=== PATIENT | male | born 1940 | race Caucasian/White ===

== ENCOUNTER 2016-08-25 08:09 | Emergency (ER) | payer MEDICARE, BC, OTHER ==
[2008-04-06 07:24] VITALS: BP 120/70
[~2016-08-25] VITALS: Ht 177.8 cm; Wt 72.7 kg
[~2016-08-25 08:09] MED LIST: ASPIRIN 81M81 MG/TA2 PO; ASTELIN NASAL S34 ML; ATORVASTATIN; CARAFATE 1GM1 G PO; CARAFATE1 GM PO; CEFTIN500 MG PO; CETAPHIL1 CRE TP; CIPRO 500MG TA500 MG PO; COLACE 100100 MG/CAP PO; FIORICET 325 MG1 TA1 PO; FLOMAX 0.40.4 MG/CAP PO; IMITREX NA20 MG/SPRA NS; IMITREX25 MG PO; IMITREX5 MG NS; KENALOG 60 ML60 M1 TP; LIPITOR20 MG PO; LORTAB 5/500 501 TAB PO; MEDROL 4MG DOSPA4 MG PO; NAPROXEN EC500 MG PO; NEXIUM 40MG40 MG PO; NEXIUM PO; NEXIUM10 MG/Pack PO; NEXIUM40 MG PO; NORCO 325 MG-51 TAB PO; PEPCID20 MG PO; PERCOCET 5/321 UDTAB PO; PERCOCET 500 MG1 TAB PO; PHENERGAN 25 TA25 MG PO; PHENERGAN25 MG RC; PHENERGAN50 MG/SUPP RC; POLYSPORIN 5001 OI1 TP; PREDNISONE10 MG PO; PREDNISONE20 MG PO; PRESERVISION1 SGL PO; PREVACID 30MG30 MG PO; PREVACID30 MG PO; PRIL40 PO; PROTOPIC0.1% TP; REGLAN 10MG10 MG/TAB PO; TEMOVATE CREAM15 GM TP; TRIAMCINOLONE A15 G3 TP; UP TO DATE; ZITHROMAX 250M250 MG PO; ZITHROMAX Z PA250 MG PO
[2016-08-25 08:11] VITALS: BP 137/71; TEMP 98.6
[2016-08-25 09:00] VITALS: PULSE 61
== END 2016-08-25 09:00 | disposition home or self-care (01) ==
LOC: COL.ER 08:09
DX: G43.909 Migraine, unspecified, not intractable, without status migrainosus (principal)
CPT/HCPCS: J0595; J2550

== ENCOUNTER 2016-09-01 05:16 | Emergency (ER) | payer MEDICARE, BC, OTHER ==
[2008-04-06 07:24] VITALS: BP 120/70
[~2016-09-01] VITALS: Ht 182.9 cm; Wt 56.8 kg
[2016-09-01 05:20] VITALS: BP 136/77; TEMP 97
[2016-09-01 05:30] VITALS: PULSE 80
== END 2016-09-01 05:32 | disposition home or self-care (01) ==
LOC: COL.ER 05:16
DX: G43.909 Migraine, unspecified, not intractable, without status migrainosus (principal)
CPT/HCPCS: J0595; J2550

== ENCOUNTER 2016-09-08 10:26 | Emergency (ER) | payer MEDICARE, BC, OTHER ==
[2008-04-06 07:24] VITALS: BP 120/70
[~2016-09-08] VITALS: Ht 177.8 cm; Wt 72.7 kg
[2016-09-08 10:28] VITALS: BP 158/74; TEMP 98.1
[2016-09-08 11:19] VITALS: PULSE 62
== END 2016-09-08 11:19 | disposition home or self-care (01) ==
LOC: COL.ER 10:26
DX: G43.909 Migraine, unspecified, not intractable, without status migrainosus (principal)
CPT/HCPCS: J0595; J2550

== ENCOUNTER 2016-09-17 17:39 | Emergency (ER) | payer MEDICARE, BC, OTHER ==
[2008-04-06 07:24] VITALS: BP 120/70
[~2016-09-17] VITALS: Ht 177.8 cm; Wt 72.7 kg
[2016-09-17 17:50] VITALS: BP 124/68; TEMP 98.5
[2016-09-17 19:26] VITALS: PULSE 63
== END 2016-09-17 19:28 | disposition home or self-care (01) ==
LOC: COL.ER 17:39
DX: G43.909 Migraine, unspecified, not intractable, without status migrainosus (principal)
CPT/HCPCS: J0595; J2550

== ENCOUNTER 2016-09-27 04:35 | Emergency (ER) | payer MEDICARE, BC, OTHER ==
[2008-04-06 07:24] VITALS: BP 120/70
[~2016-09-27] VITALS: Ht 177.8 cm; Wt 72.7 kg
[2016-09-27 04:40] VITALS: BP 155/76; TEMP 98
[2016-09-27] MEDS ORDERED: STADOL NASA25 MG/BOT NS (04:43)
[2016-09-27 05:18] VITALS: PULSE 76
== END 2016-09-27 05:15 | disposition home or self-care (01) ==
LOC: COL.ER 04:35
DX: G43.909 Migraine, unspecified, not intractable, without status migrainosus (principal)
CPT/HCPCS: J0595; J2550

== ENCOUNTER 2016-10-05 14:35 | Emergency (ER) | payer MEDICARE, BC, OTHER ==
[2008-04-06 07:24] VITALS: BP 120/70
[~2016-10-05] VITALS: Ht 177.8 cm; Wt 72.7 kg
[~2016-10-05 14:35] MED LIST changes: +STADOL NASA25 MG/BOT NS
[2016-10-05 14:37] VITALS: PULSE 66
[2016-10-05 15:22] VITALS: BP 127/86; TEMP 98.8
== END 2016-10-05 15:23 | disposition home or self-care (01) ==
LOC: COL.ER 14:35
DX: G43.909 Migraine, unspecified, not intractable, without status migrainosus (principal)
CPT/HCPCS: J0595; J2550

== ENCOUNTER 2016-10-22 05:17 | Emergency (ER) | payer MEDICARE, BC, OTHER ==
[2008-04-06 07:24] VITALS: BP 120/70
[~2016-10-22] VITALS: Ht 177.8 cm; Wt 72.7 kg
[2016-10-22 05:21] VITALS: TEMP 97.7
[2016-10-22 05:43] VITALS: BP 140/89; PULSE 67
== END 2016-10-22 05:58 | disposition home or self-care (01) ==
LOC: COL.ER 05:17
DX: R51 Headache (principal)
CPT/HCPCS: J0595; J2550

== ENCOUNTER 2016-11-02 13:11 | Emergency (ER) | payer MEDICARE, BC, OTHER ==
[2008-04-06 07:24] VITALS: BP 120/70
[~2016-11-02] VITALS: Ht 177.8 cm; Wt 72.7 kg
[2016-11-02 13:19] VITALS: BP 145/94; TEMP 98.1
[2016-11-02 14:17] VITALS: PULSE 64
== END 2016-11-02 14:18 | disposition home or self-care (01) ==
LOC: COL.ER 13:11
DX: G43.909 Migraine, unspecified, not intractable, without status migrainosus (principal)
CPT/HCPCS: J0595; J2550

== ENCOUNTER 2016-11-09 06:49 | Emergency (ER) | payer MEDICARE, BC, OTHER ==
[2008-04-06 07:24] VITALS: BP 120/70
[~2016-11-09] VITALS: Ht 177.8 cm; Wt 72.7 kg
[2016-11-09 07:57] VITALS: BP 122/91; PULSE 76; TEMP 97.9
== END 2016-11-09 07:48 | disposition home or self-care (01) ==
LOC: COL.ER 06:49
DX: G43.909 Migraine, unspecified, not intractable, without status migrainosus (principal)
CPT/HCPCS: J0595; J2550

== ENCOUNTER 2016-11-14 04:33 | Emergency (ER) | payer MEDICARE, BC, OTHER ==
[2008-04-06 07:24] VITALS: BP 120/70
[~2016-11-14] VITALS: Ht 177.8 cm; Wt 72.7 kg
[2016-11-14 04:37] VITALS: BP 145/75; TEMP 98.3
[2016-11-14] MEDS ORDERED: ULTRAM 50MG TAB50 MG PO (05:04)
[2016-11-14] MEDS ORDERED: PHENERGAN 25 TA25 MG PO (05:04)
[2016-11-14 05:22] VITALS: PULSE 74
== END 2016-11-14 05:23 | disposition home or self-care (01) ==
LOC: COL.ER 04:33
DX: R51 Headache (principal)
CPT/HCPCS: J0595; J2550

== ENCOUNTER 2016-11-23 17:37 | Emergency (ER) | payer MEDICARE, BC, OTHER ==
[2008-04-06 07:24] VITALS: BP 120/70
[~2016-11-23] VITALS: Ht 177.8 cm; Wt 72.7 kg
[~2016-11-23 17:37] MED LIST changes: +ULTRAM 50MG TAB50 MG PO
[2016-11-23 17:40] VITALS: TEMP 98.2
[2016-11-23 18:07] VITALS: BP 149/88; PULSE 82
== END 2016-11-23 18:15 | disposition home or self-care (01) ==
LOC: COL.ER 17:37
DX: G43.909 Migraine, unspecified, not intractable, without status migrainosus (principal)
CPT/HCPCS: J0595; J2550

== ENCOUNTER 2016-12-11 02:29 | Emergency (ER) | payer MEDICARE, BC, OTHER ==
[2008-04-06 07:24] VITALS: BP 120/70
[~2016-12-11] VITALS: Ht 177.8 cm; Wt 73.6 kg
[2016-12-11 02:33] VITALS: BP 155/85; PULSE 68; TEMP 98.1
[2016-12-11] MEDS ORDERED: IMITREX 5MGNAS NS (02:46)
== END 2016-12-11 03:14 | disposition home or self-care (01) ==
LOC: COL.ER 02:29
DX: R51 Headache (principal); G43.909 Migraine, unspecified, not intractable, without status migrainosus
CPT/HCPCS: J0595; J2550

== ENCOUNTER 2016-12-20 15:15 | Emergency (ER) | payer MEDICARE, BC, OTHER ==
[2008-04-06 07:24] VITALS: BP 120/70
[~2016-12-20] VITALS: Ht 177.8 cm; Wt 71.8 kg
[~2016-12-20 15:15] MED LIST changes: +IMITREX 5MGNAS NS
[2016-12-20 15:41] VITALS: BP 140/73; PULSE 73; TEMP 99.3
== END 2016-12-20 17:18 | disposition home or self-care (01) ==
LOC: COL.ER 15:15
DX: G43.909 Migraine, unspecified, not intractable, without status migrainosus (principal)
CPT/HCPCS: J0595; J2550

== ENCOUNTER 2016-12-28 16:17 | Emergency (ER) | payer MEDICARE, BC, OTHER ==
[2008-04-06 07:24] VITALS: BP 120/70
[~2016-12-28] VITALS: Ht 177.8 cm; Wt 72.7 kg
[2016-12-28 16:20] VITALS: BP 142/67; TEMP 98.8
[2016-12-28 17:23] VITALS: PULSE 70
== END 2016-12-28 17:23 | disposition home or self-care (01) ==
LOC: COL.ER 16:17
DX: G43.909 Migraine, unspecified, not intractable, without status migrainosus (principal)
CPT/HCPCS: J0595; J2550

== ENCOUNTER 2017-01-05 10:22 | Emergency (ER) | payer MEDICARE, BC, OTHER ==
[2008-04-06 07:24] VITALS: BP 120/70
[~2017-01-05] VITALS: Ht 177.8 cm; Wt 72.7 kg
[2017-01-05 10:41] VITALS: BP 144/71; PULSE 57; TEMP 98.1
== END 2017-01-05 11:20 | disposition home or self-care (01) ==
LOC: COL.ER 10:22
DX: G43.909 Migraine, unspecified, not intractable, without status migrainosus (principal)
CPT/HCPCS: J0595; J2550

== ENCOUNTER 2017-01-07 12:09 | Emergency (ER) | payer MEDICARE, BC, OTHER ==
[2008-04-06 07:24] VITALS: BP 120/70
[~2017-01-07] VITALS: Ht 177.8 cm; Wt 72.7 kg
[2017-01-07 12:19] VITALS: BP 134/77; PULSE 68; TEMP 98.7
== END 2017-01-07 15:01 | disposition home or self-care (01) ==
LOC: COL.ER 12:09
DX: S61.212A Laceration without foreign body of right middle finger without damage to nail, initial encounter (principal); W45.8XXA Other foreign body or object entering through skin, initial encounter

== ENCOUNTER 2017-01-13 12:08 | Emergency (ER) | payer MEDICARE, BC, OTHER ==
[2008-04-06 07:24] VITALS: BP 120/70
[~2017-01-13] VITALS: Ht 177.8 cm; Wt 72.7 kg
[2017-01-13 12:12] VITALS: BP 116/64; PULSE 73; TEMP 98.4
== END 2017-01-13 12:51 | disposition home or self-care (01) ==
LOC: COL.ER 12:08
DX: G43.909 Migraine, unspecified, not intractable, without status migrainosus (principal); I10 Essential (primary) hypertension; K21.9 Gastro-esophageal reflux disease without esophagitis; M19.90 Unspecified osteoarthritis, unspecified site; Z87.891 Personal history of nicotine dependence; Z85.9 Personal history of malignant neoplasm, unspecified; Z90.49 Acquired absence of other specified parts of digestive tract; Z95.9 Presence of cardiac and vascular implant and graft, unspecified; Z98.890 Other specified postprocedural states
CPT/HCPCS: J0595; J2550

== ENCOUNTER 2017-01-18 17:11 | Emergency (ER) | payer MEDICARE, BC, OTHER ==
[2008-04-06 07:24] VITALS: BP 120/70
[~2017-01-18] VITALS: Ht 177.8 cm; Wt 72.7 kg
[2017-01-18 18:30] VITALS: BP 152/82; PULSE 57; TEMP 97.8
== END 2017-01-18 18:30 | disposition home or self-care (01) ==
LOC: COL.ER 17:11
DX: G43.909 Migraine, unspecified, not intractable, without status migrainosus (principal)
CPT/HCPCS: J0595; J2550

== ENCOUNTER 2017-01-26 10:34 | Emergency (ER) | payer MEDICARE, BC, OTHER ==
[2008-04-06 07:24] VITALS: BP 120/70
[~2017-01-26] VITALS: Ht 177.8 cm; Wt 72.7 kg
[2017-01-26 10:40] VITALS: BP 148/74; TEMP 98.2
[2017-01-26] MEDS ORDERED: IMITREX 6M6 MG/0.5 M SQ (10:42)
[2017-01-26 12:00] VITALS: PULSE 74
== END 2017-01-26 12:00 | disposition home or self-care (01) ==
LOC: COL.ER 10:34
DX: G43.909 Migraine, unspecified, not intractable, without status migrainosus (principal); J31.0 Chronic rhinitis
CPT/HCPCS: J0595; J2550

== ENCOUNTER 2017-02-05 17:08 | Emergency (ER) | payer MEDICARE, BC, OTHER ==
[2008-04-06 07:24] VITALS: BP 120/70
[~2017-02-05] VITALS: Ht 177.8 cm; Wt 72.7 kg
[~2017-02-05 17:08] MED LIST changes: +IMITREX 6M6 MG/0.5 M SQ
[2017-02-05 17:17] VITALS: BP 160/86; TEMP 98.1
[2017-02-05 18:25] VITALS: PULSE 75
== END 2017-02-05 18:26 | disposition home or self-care (01) ==
LOC: COL.ER 17:08
DX: G43.909 Migraine, unspecified, not intractable, without status migrainosus (principal); K21.9 Gastro-esophageal reflux disease without esophagitis; Z87.891 Personal history of nicotine dependence
CPT/HCPCS: J0595; J2550

== ENCOUNTER 2017-02-13 08:44 | Emergency (ER) | payer MEDICARE, BC, OTHER ==
[2008-04-06 07:24] VITALS: BP 120/70
[~2017-02-13] VITALS: Ht 177.8 cm; Wt 72.7 kg
[2017-02-13 08:46] VITALS: BP 143/64; TEMP 98.2
[2017-02-13 09:47] VITALS: PULSE 74
== END 2017-02-13 09:47 | disposition home or self-care (01) ==
LOC: COL.ER 08:44
DX: G43.909 Migraine, unspecified, not intractable, without status migrainosus (principal); I10 Essential (primary) hypertension; K21.9 Gastro-esophageal reflux disease without esophagitis; K75.9 Inflammatory liver disease, unspecified; M19.90 Unspecified osteoarthritis, unspecified site; G89.29 Other chronic pain; M25.511 Pain in right shoulder; Z87.442 Personal history of urinary calculi; Z96.0 Presence of urogenital implants; Z90.49 Acquired absence of other specified parts of digestive tract; Z98.890 Other specified postprocedural states
CPT/HCPCS: J0595; J2550

== ENCOUNTER 2017-02-21 12:15 | Emergency (ER) | payer MEDICARE, BC, OTHER ==
[2008-04-06 07:24] VITALS: BP 120/70
[~2017-02-21] VITALS: Ht 177.8 cm; Wt 72.7 kg
[2017-02-21 12:16] VITALS: BP 151/77; TEMP 98.5
[2017-02-21 13:02] VITALS: PULSE 71
== END 2017-02-21 13:04 | disposition home or self-care (01) ==
LOC: COL.ER 12:15
DX: G43.909 Migraine, unspecified, not intractable, without status migrainosus (principal)
CPT/HCPCS: J0595; J2550

== ENCOUNTER 2017-03-01 14:55 | Emergency (ER) | payer MEDICARE, BC, OTHER ==
[2008-04-06 07:24] VITALS: BP 120/70
[~2017-03-01] VITALS: Ht 177.8 cm; Wt 72.7 kg
[2017-03-01 15:02] VITALS: BP 147/68; TEMP 98.3
[2017-03-01 16:45] VITALS: PULSE 62
== END 2017-03-01 16:46 | disposition home or self-care (01) ==
LOC: COL.ER 14:55
DX: G43.909 Migraine, unspecified, not intractable, without status migrainosus (principal); I10 Essential (primary) hypertension; K21.9 Gastro-esophageal reflux disease without esophagitis; F17.200 Nicotine dependence, unspecified, uncomplicated; Z90.49 Acquired absence of other specified parts of digestive tract; Z98.890 Other specified postprocedural states; Z87.442 Personal history of urinary calculi
CPT/HCPCS: J0595; J2550

== ENCOUNTER 2017-03-07 03:49 | Emergency (ER) | payer MEDICARE, BC, OTHER ==
[2008-04-06 07:24] VITALS: BP 120/70
[~2017-03-07] VITALS: Ht 177.8 cm; Wt 72.3 kg
[2017-03-07 03:53] VITALS: BP 146/72; TEMP 98
[2017-03-07 04:36] VITALS: PULSE 78
== END 2017-03-07 04:37 | disposition home or self-care (01) ==
LOC: COL.ER 03:49
DX: G43.909 Migraine, unspecified, not intractable, without status migrainosus (principal)
CPT/HCPCS: J0595; J2550

== ENCOUNTER 2017-03-13 03:19 | Emergency (ER) | payer MEDICARE, BC, OTHER ==
[2008-04-06 07:24] VITALS: BP 120/70
[~2017-03-13] VITALS: Ht 177.8 cm; Wt 71.8 kg
[2017-03-13 03:21] VITALS: BP 144/81; TEMP 98.1
[2017-03-13 03:58] VITALS: PULSE 71
== END 2017-03-13 03:58 | disposition home or self-care (01) ==
LOC: COL.ER 03:19
DX: G43.909 Migraine, unspecified, not intractable, without status migrainosus (principal)
CPT/HCPCS: J0595; J2550

== ENCOUNTER 2017-03-21 17:16 | Emergency (ER) | payer MEDICARE, BC, OTHER ==
[2008-04-06 07:24] VITALS: BP 120/70
[~2017-03-21] VITALS: Ht 177.8 cm; Wt 72.7 kg
[2017-03-21 17:19] VITALS: BP 140/74; TEMP 98.7
[2017-03-21 18:27] VITALS: PULSE 71
== END 2017-03-21 18:28 | disposition home or self-care (01) ==
LOC: COL.ER 17:16
DX: G43.909 Migraine, unspecified, not intractable, without status migrainosus (principal); Z87.442 Personal history of urinary calculi; Z95.9 Presence of cardiac and vascular implant and graft, unspecified; Z90.49 Acquired absence of other specified parts of digestive tract; Z98.49 Cataract extraction status, unspecified eye; Z98.890 Other specified postprocedural states
CPT/HCPCS: J0595; J2550

== ENCOUNTER 2017-03-26 13:56 | Emergency (ER) | payer MEDICARE, BC, OTHER ==
[2008-04-06 07:24] VITALS: BP 120/70
[~2017-03-26] VITALS: Ht 177.8 cm; Wt 72.7 kg
[2017-03-26 14:00] VITALS: BP 138/71; TEMP 98.8
[2017-03-26 15:50] VITALS: PULSE 76
== END 2017-03-26 15:55 | disposition home or self-care (01) ==
LOC: COL.ER 13:56
DX: G43.909 Migraine, unspecified, not intractable, without status migrainosus (principal); K21.9 Gastro-esophageal reflux disease without esophagitis
CPT/HCPCS: J0595; J2550

== ENCOUNTER 2017-04-02 09:56 | Emergency (ER) | payer MEDICARE, BC, OTHER ==
[2008-04-06 07:24] VITALS: BP 120/70
[~2017-04-02] VITALS: Ht 177.8 cm; Wt 71.8 kg
[2017-04-02 09:59] VITALS: BP 144/68; TEMP 97.3
[2017-04-02 10:46] VITALS: PULSE 54
== END 2017-04-02 10:47 | disposition home or self-care (01) ==
LOC: COL.ER 09:56
DX: G43.909 Migraine, unspecified, not intractable, without status migrainosus (principal)
CPT/HCPCS: J0595; J2550

== ENCOUNTER 2017-04-15 04:23 | Emergency (ER) | payer MEDICARE, BC, OTHER ==
[2008-04-06 07:24] VITALS: BP 120/70
[2017-04-15 04:25] VITALS: BP 142/67; TEMP 97.6
[2017-04-15] MEDS ORDERED: ERGOCALCIFER50000 IU PO (04:43)
[2017-04-15 05:04] VITALS: PULSE 65
== END 2017-04-15 05:04 | disposition home or self-care (01) ==
LOC: COL.ER 04:23
DX: G43.909 Migraine, unspecified, not intractable, without status migrainosus (principal); Z90.49 Acquired absence of other specified parts of digestive tract; Z98.890 Other specified postprocedural states
CPT/HCPCS: J0595; J2550

== ENCOUNTER 2017-04-20 11:27 | Emergency (ER) | payer MEDICARE, BC, OTHER ==
[2008-04-06 07:24] VITALS: BP 120/70
[~2017-04-20] VITALS: Ht 177.8 cm; Wt 70.5 kg
[~2017-04-20 11:27] MED LIST changes: +ERGOCALCIFER50000 IU PO
[2017-04-20 11:30] VITALS: BP 184/82; TEMP 97.8
[2017-04-20 12:43] VITALS: PULSE 65
== END 2017-04-20 12:44 | disposition home or self-care (01) ==
LOC: COL.ER 11:27
DX: G43.909 Migraine, unspecified, not intractable, without status migrainosus (principal); Z87.891 Personal history of nicotine dependence
CPT/HCPCS: J0595; J2550

== ENCOUNTER 2017-04-27 04:48 | Emergency (ER) | payer MEDICARE, BC, OTHER ==
[2008-04-06 07:24] VITALS: BP 120/70
[~2017-04-27] VITALS: Ht 177.8 cm; Wt 71.8 kg
[2017-04-27 04:50] VITALS: BP 154/81; PULSE 71; TEMP 97.2
== END 2017-04-27 05:20 | disposition home or self-care (01) ==
LOC: COL.ER 04:48
DX: G43.909 Migraine, unspecified, not intractable, without status migrainosus (principal)
CPT/HCPCS: J0595; J2550

== ENCOUNTER 2017-05-08 19:35 | Emergency (ER) | payer MEDICARE, BC, OTHER ==
[2008-04-06 07:24] VITALS: BP 120/70
[~2017-05-08] VITALS: Ht 177.8 cm; Wt 69.1 kg
[2017-05-08 19:38] VITALS: BP 139/70; TEMP 97.9
[2017-05-08 20:11] VITALS: PULSE 57
== END 2017-05-08 20:11 | disposition home or self-care (01) ==
LOC: COL.ER 19:35
DX: G43.909 Migraine, unspecified, not intractable, without status migrainosus (principal)
CPT/HCPCS: J0595; J2550

== ENCOUNTER 2017-05-17 19:20 | Emergency (ER) | payer MEDICARE, BC, OTHER ==
[2008-04-06 07:24] VITALS: BP 120/70
[~2017-05-17] VITALS: Ht 177.8 cm; Wt 70.5 kg
[2017-05-17 19:26] VITALS: BP 176/80; PULSE 62; TEMP 98
== END 2017-05-17 20:11 | disposition home or self-care (01) ==
LOC: COL.ER 19:20
DX: G43.909 Migraine, unspecified, not intractable, without status migrainosus (principal)
CPT/HCPCS: J0595; J2550

== ENCOUNTER 2017-06-01 11:02 | Emergency (ER) | payer MEDICARE, BC, OTHER ==
[2008-04-06 07:24] VITALS: BP 120/70
[~2017-06-01] VITALS: Ht 177.8 cm; Wt 70.5 kg
[2017-06-01 11:09] VITALS: BP 163/67; TEMP 99.4
[2017-06-01 12:06] VITALS: PULSE 68
== END 2017-06-01 12:20 | disposition home or self-care (01) ==
LOC: COL.ER 11:02
DX: G43.909 Migraine, unspecified, not intractable, without status migrainosus (principal)
CPT/HCPCS: J0595; J2550

== ENCOUNTER 2017-06-10 10:44 | Emergency (ER) | payer MEDICARE, BC, OTHER ==
[2008-04-06 07:24] VITALS: BP 120/70
[~2017-06-10] VITALS: Ht 177.8 cm; Wt 70.5 kg
[2017-06-10 10:49] VITALS: BP 163/70; TEMP 98.3
[2017-06-10 11:45] VITALS: PULSE 58
== END 2017-06-10 11:48 | disposition home or self-care (01) ==
LOC: COL.ER 10:44
DX: G43.909 Migraine, unspecified, not intractable, without status migrainosus (principal)
CPT/HCPCS: J0595; J2550

== ENCOUNTER 2017-06-17 06:29 | Emergency (ER) | payer MEDICARE, BC, OTHER ==
[2008-04-06 07:24] VITALS: BP 120/70
[~2017-06-17] VITALS: Ht 177.8 cm; Wt 70.5 kg
[2017-06-17 06:51] VITALS: BP 142/65; PULSE 70; TEMP 97
== END 2017-06-17 08:04 | disposition home or self-care (01) ==
LOC: COL.ER 06:29
DX: G43.909 Migraine, unspecified, not intractable, without status migrainosus (principal)
CPT/HCPCS: J0595; J2550

== ENCOUNTER 2017-07-04 10:52 | Emergency (ER) | payer MEDICARE, BC, OTHER ==
[2008-04-06 07:24] VITALS: BP 120/70
[~2017-07-04] VITALS: Ht 177.8 cm; Wt 68.2 kg
[2017-07-04 11:03] VITALS: PULSE 65; TEMP 98.4
[2017-07-04 12:13] VITALS: BP 141/71
== END 2017-07-04 12:14 | disposition home or self-care (01) ==
LOC: COL.ER 10:52
DX: G43.909 Migraine, unspecified, not intractable, without status migrainosus (principal)
CPT/HCPCS: J0595; J2550

== ENCOUNTER 2017-07-12 14:30 | Emergency (ER) | payer MEDICARE, BC, OTHER ==
[2008-04-06 07:24] VITALS: BP 120/70
[~2017-07-12] VITALS: Ht 177.8 cm; Wt 68.2 kg
[2017-07-12 14:32] VITALS: BP 140/82; PULSE 69; TEMP 98
== END 2017-07-12 15:14 | disposition home or self-care (01) ==
LOC: COL.ER 14:30
DX: G43.909 Migraine, unspecified, not intractable, without status migrainosus (principal)
CPT/HCPCS: J0595; J2550

== ENCOUNTER 2017-07-21 13:04 | Emergency (ER) | payer MEDICARE, BC, OTHER ==
[2008-04-06 07:24] VITALS: BP 120/70
[~2017-07-21] VITALS: Ht 177.8 cm; Wt 70.5 kg
[2017-07-21 13:09] VITALS: BP 169/77; TEMP 100
[2017-07-21 14:16] VITALS: PULSE 64
== END 2017-07-21 14:16 | disposition home or self-care (01) ==
LOC: COL.ER 13:04
DX: G43.909 Migraine, unspecified, not intractable, without status migrainosus (principal); Z90.49 Acquired absence of other specified parts of digestive tract
CPT/HCPCS: J0595; J2550

== ENCOUNTER 2017-07-28 13:47 | Emergency (ER) | payer MEDICARE, BC, OTHER ==
[2008-04-06 07:24] VITALS: BP 120/70
[~2017-07-28] VITALS: Ht 177.8 cm; Wt 70.5 kg
[2017-07-28 13:53] VITALS: BP 149/72; TEMP 98.8
[2017-07-28 15:05] VITALS: PULSE 68
== END 2017-07-28 15:06 | disposition home or self-care (01) ==
LOC: COL.ER 13:47
DX: G43.909 Migraine, unspecified, not intractable, without status migrainosus (principal); K21.9 Gastro-esophageal reflux disease without esophagitis
CPT/HCPCS: J0595; J2550

== ENCOUNTER 2017-08-23 12:15 | Emergency (ER) | payer MEDICARE, BC, OTHER ==
[2008-04-06 07:24] VITALS: BP 120/70
[~2017-08-23] VITALS: Ht 177.8 cm; Wt 66.4 kg
[2017-08-23 12:18] VITALS: BP 169/89; TEMP 98.2
[2017-08-23 13:24] VITALS: PULSE 68
== END 2017-08-23 13:24 | disposition home or self-care (01) ==
LOC: COL.ER 12:15
DX: G43.909 Migraine, unspecified, not intractable, without status migrainosus (principal); K21.9 Gastro-esophageal reflux disease without esophagitis; F17.210 Nicotine dependence, cigarettes, uncomplicated; Z87.442 Personal history of urinary calculi; Z96.0 Presence of urogenital implants; Z98.890 Other specified postprocedural states
CPT/HCPCS: J0595; J2550

== ENCOUNTER 2017-09-13 13:55 | Emergency (ER) | payer MEDICARE, BC, OTHER ==
[2008-04-06 07:24] VITALS: BP 120/70
[~2017-09-13] VITALS: Ht 177.8 cm; Wt 70.5 kg
[2017-09-13 14:08] VITALS: BP 143/79; TEMP 98
[2017-09-13 14:46] VITALS: PULSE 75
== END 2017-09-13 14:58 | disposition home or self-care (01) ==
LOC: COL.ER 13:55
DX: R51 Headache (principal)
CPT/HCPCS: J0595; J2550

== ENCOUNTER 2017-09-27 07:55 | Emergency (ER) | payer MEDICARE, BC ==
[2008-04-06 07:24] VITALS: BP 120/70
[~2017-09-27] VITALS: Ht 177.8 cm; Wt 70.5 kg
[2017-09-27 07:58] VITALS: BP 173/89; PULSE 63; TEMP 97.8
== END 2017-09-27 09:06 | disposition home or self-care (01) ==
LOC: COL.ER 07:55
DX: G43.909 Migraine, unspecified, not intractable, without status migrainosus (principal); K21.9 Gastro-esophageal reflux disease without esophagitis; Z87.442 Personal history of urinary calculi; Z87.891 Personal history of nicotine dependence
CPT/HCPCS: J0595; J2550

== ENCOUNTER 2017-10-09 04:57 | Emergency (ER) | payer MEDICARE, BC ==
[2008-04-06 07:24] VITALS: BP 120/70
[~2017-10-09] VITALS: Ht 177.8 cm; Wt 72.7 kg
[2017-10-09 05:11] VITALS: TEMP 97.3
[2017-10-09 06:21] VITALS: BP 154/63; PULSE 63
== END 2017-10-09 06:15 | disposition home or self-care (01) ==
LOC: COL.ER 04:57
DX: G43.909 Migraine, unspecified, not intractable, without status migrainosus (principal)
CPT/HCPCS: J0595; J2550

== ENCOUNTER 2017-10-19 05:04 | Emergency (ER) | payer MEDICARE, BC ==
[2008-04-06 07:24] VITALS: BP 120/70
[~2017-10-19] VITALS: Ht 177.8 cm; Wt 72.7 kg
[2017-10-19 05:06] VITALS: BP 140/85; TEMP 98
[2017-10-19 05:47] VITALS: PULSE 68
== END 2017-10-19 05:45 | disposition home or self-care (01) ==
LOC: COL.ER 05:04
DX: G43.909 Migraine, unspecified, not intractable, without status migrainosus (principal); Z90.49 Acquired absence of other specified parts of digestive tract
CPT/HCPCS: J0595; J2550

== ENCOUNTER 2017-10-26 16:10 | Emergency (ER) | payer MEDICARE, BC ==
[2008-04-06 07:24] VITALS: BP 120/70
[~2017-10-26] VITALS: Ht 177.8 cm; Wt 70.5 kg
[2017-10-26 16:12] VITALS: BP 173/78; PULSE 62; TEMP 98.1
== END 2017-10-26 16:43 | disposition home or self-care (01) ==
LOC: COL.ER 16:10
DX: G43.909 Migraine, unspecified, not intractable, without status migrainosus (principal)
CPT/HCPCS: J0595; J2550

== ENCOUNTER 2017-11-03 09:54 | Emergency (ER) | payer MEDICARE, BC ==
[2008-04-06 07:24] VITALS: BP 120/70
[~2017-11-03] VITALS: Ht 170.2 cm; Wt 68.2 kg
[2017-11-03 09:57] VITALS: BP 154/83; PULSE 62; TEMP 98.2
== END 2017-11-03 10:34 | disposition home or self-care (01) ==
LOC: COL.ER 09:54
DX: G43.909 Migraine, unspecified, not intractable, without status migrainosus (principal); I10 Essential (primary) hypertension; K21.9 Gastro-esophageal reflux disease without esophagitis; Z87.442 Personal history of urinary calculi
CPT/HCPCS: J0595; J2550

== ENCOUNTER 2017-11-10 10:22 | Emergency (ER) | payer MEDICARE, BC ==
[2008-04-06 07:24] VITALS: BP 120/70
[~2017-11-10] VITALS: Ht 177.8 cm; Wt 70.5 kg
[2017-11-10 10:37] VITALS: BP 165/77; PULSE 61; TEMP 98.2
== END 2017-11-10 13:04 | disposition home or self-care (01) ==
LOC: COL.ER 10:22
DX: G43.909 Migraine, unspecified, not intractable, without status migrainosus (principal)
CPT/HCPCS: J0595; J2550

== ENCOUNTER 2017-11-20 16:27 | Emergency (ER) | payer MEDICARE, BC ==
[2008-04-06 07:24] VITALS: BP 120/70
[~2017-11-20] VITALS: Ht 177.8 cm; Wt 70.5 kg
[2017-11-20 16:40] VITALS: BP 134/70; TEMP 98.9
[2017-11-20 17:10] VITALS: PULSE 67
== END 2017-11-20 17:10 | disposition home or self-care (01) ==
LOC: COL.ER 16:27
DX: G43.909 Migraine, unspecified, not intractable, without status migrainosus (principal); Z90.49 Acquired absence of other specified parts of digestive tract
CPT/HCPCS: J0595; J2550

== ENCOUNTER 2017-12-07 14:03 | Emergency (ER) | payer MEDICARE, BC ==
[2008-04-06 07:24] VITALS: BP 120/70
[~2017-12-07] VITALS: Ht 177.8 cm; Wt 70.5 kg
[2017-12-07 14:11] VITALS: BP 135/65; TEMP 97.9
[2017-12-07 14:41] VITALS: PULSE 65
== END 2017-12-07 14:42 | disposition home or self-care (01) ==
LOC: COL.ER 14:03
DX: G43.909 Migraine, unspecified, not intractable, without status migrainosus (principal); Z90.89 Acquired absence of other organs; Z98.890 Other specified postprocedural states
CPT/HCPCS: J0595; J2550

== ENCOUNTER 2017-12-21 09:19 | Emergency (ER) | payer MEDICARE, BC ==
[2008-04-06 07:24] VITALS: BP 120/70
[~2017-12-21] VITALS: Ht 177.8 cm; Wt 70.5 kg
[2017-12-21 09:50] VITALS: TEMP 97.3
[2017-12-21 10:25] VITALS: BP 143/76; PULSE 54
== END 2017-12-21 10:13 | disposition home or self-care (01) ==
LOC: COL.ER 09:19
DX: G43.909 Migraine, unspecified, not intractable, without status migrainosus (principal)
CPT/HCPCS: J0595; J2550

== ENCOUNTER 2018-01-02 13:30 | Emergency (ER) | payer MEDICARE, BC ==
[2008-04-06 07:24] VITALS: BP 120/70
[~2018-01-02] VITALS: Ht 177.8 cm; Wt 70.5 kg
[2018-01-02 13:32] VITALS: BP 169/75; PULSE 61; TEMP 97.8
== END 2018-01-02 14:58 | disposition home or self-care (01) ==
LOC: COL.ER 13:30
DX: G43.909 Migraine, unspecified, not intractable, without status migrainosus (principal)
CPT/HCPCS: J0595; J2550

== ENCOUNTER 2018-01-11 13:43 | Emergency (ER) | payer MEDICARE, BC ==
[2008-04-06 07:24] VITALS: BP 120/70
[~2018-01-11] VITALS: Ht 177.8 cm; Wt 61.4 kg
[2018-01-11 13:45] VITALS: BP 146/75; TEMP 99
[2018-01-11 14:22] VITALS: PULSE 68
== END 2018-01-11 14:25 | disposition home or self-care (01) ==
LOC: COL.ER 13:43
DX: G43.909 Migraine, unspecified, not intractable, without status migrainosus (principal); Z87.442 Personal history of urinary calculi; Z87.891 Personal history of nicotine dependence; Z98.890 Other specified postprocedural states
CPT/HCPCS: J0595; J2550

== ENCOUNTER 2018-01-18 13:00 | Emergency (ER) | payer MEDICARE, BC ==
[2008-04-06 07:24] VITALS: BP 120/70
[~2018-01-18] VITALS: Ht 177.8 cm; Wt 65.9 kg
[2018-01-18 13:02] VITALS: BP 146/65; PULSE 86; TEMP 98.2
== END 2018-01-18 13:27 | disposition home or self-care (01) ==
LOC: COL.ER 13:00
DX: R51 Headache (principal); K21.9 Gastro-esophageal reflux disease without esophagitis; N40.0 Benign prostatic hyperplasia without lower urinary tract symptoms
CPT/HCPCS: J0595; J2550

== ENCOUNTER 2018-01-26 11:36 | Emergency (ER) | payer MEDICARE, BC ==
[2008-04-06 07:24] VITALS: BP 120/70
[~2018-01-26] VITALS: Ht 177.8 cm; Wt 65.9 kg
[2018-01-26 11:39] VITALS: BP 133/83; PULSE 70; TEMP 97.9
== END 2018-01-26 12:28 | disposition home or self-care (01) ==
LOC: COL.ER 11:36
DX: G43.909 Migraine, unspecified, not intractable, without status migrainosus (principal); I10 Essential (primary) hypertension; K21.9 Gastro-esophageal reflux disease without esophagitis; Z87.442 Personal history of urinary calculi; Z87.891 Personal history of nicotine dependence
CPT/HCPCS: J0595; J2550

== ENCOUNTER 2018-02-01 13:25 | Emergency (ER) | payer MEDICARE, BC ==
[2008-04-06 07:24] VITALS: BP 120/70
[~2018-02-01] VITALS: Ht 177.8 cm; Wt 65.9 kg
[2018-02-01 13:28] VITALS: BP 181/74; TEMP 97.8
[2018-02-01 14:06] VITALS: PULSE 60
== END 2018-02-01 14:06 | disposition home or self-care (01) ==
LOC: COL.ER 13:25
DX: G43.909 Migraine, unspecified, not intractable, without status migrainosus (principal); I10 Essential (primary) hypertension; Z87.891 Personal history of nicotine dependence
CPT/HCPCS: J0595; J2550

== ENCOUNTER 2018-02-05 16:00 | Emergency (ER) | payer MEDICARE, BC ==
[2008-04-06 07:24] VITALS: BP 120/70
[~2018-02-05] VITALS: Ht 177.8 cm; Wt 65.9 kg
[2018-02-05 16:04] VITALS: BP 137/76; PULSE 70; TEMP 97.5
== END 2018-02-05 16:40 | disposition home or self-care (01) ==
LOC: COL.ER 16:00
DX: G43.909 Migraine, unspecified, not intractable, without status migrainosus (principal)
CPT/HCPCS: J0595; J2550

== ENCOUNTER 2018-02-15 08:56 | Emergency (ER) | payer MEDICARE, BC ==
[2008-04-06 07:24] VITALS: BP 120/70
[~2018-02-15] VITALS: Ht 175.3 cm; Wt 65.9 kg
[2018-02-15 09:01] VITALS: BP 154/74; TEMP 98.3
[2018-02-15 09:55] VITALS: PULSE 66
== END 2018-02-15 09:56 | disposition home or self-care (01) ==
LOC: COL.ER 08:56
DX: G43.909 Migraine, unspecified, not intractable, without status migrainosus (principal)
CPT/HCPCS: J0595; J2550

== ENCOUNTER 2018-02-20 12:02 | Emergency (ER) | payer MEDICARE, BC ==
[2008-04-06 07:24] VITALS: BP 120/70
[~2018-02-20] VITALS: Ht 177.8 cm; Wt 65.9 kg
[2018-02-20 12:15] VITALS: BP 147/74; TEMP 97.7
[2018-02-20 12:46] VITALS: PULSE 58
== END 2018-02-20 12:47 | disposition home or self-care (01) ==
LOC: COL.ER 12:02
DX: G43.909 Migraine, unspecified, not intractable, without status migrainosus (principal)
CPT/HCPCS: J0595; J2550

== ENCOUNTER 2018-02-25 06:37 | Emergency (ER) | payer MEDICARE, BC ==
[2008-04-06 07:24] VITALS: BP 120/70
[~2018-02-25] VITALS: Ht 177.8 cm; Wt 65.9 kg
[2018-02-25 06:43] VITALS: BP 132/74; PULSE 72; TEMP 97.8
[2018-02-25] MEDS ORDERED: ZYRTEC 10MG10 MG PO (07:46)
[2018-02-25] MEDS ORDERED: FLONASEALLERGY NS (07:46)
== END 2018-02-25 07:59 | disposition home or self-care (01) ==
LOC: COL.ER 06:37
DX: G43.909 Migraine, unspecified, not intractable, without status migrainosus (principal); J30.9 Allergic rhinitis, unspecified; I10 Essential (primary) hypertension; Z90.49 Acquired absence of other specified parts of digestive tract; Z87.891 Personal history of nicotine dependence
CPT/HCPCS: J0595; J2550

== ENCOUNTER → 2018-03-06 | Emergency (ER) | payer MEDICARE, BC ==
[2008-04-06 07:24] VITALS: BP 120/70
[~2018-03-06] VITALS: Ht 177.8 cm; Wt 65.9 kg
[~2018-03-06] MED LIST changes: +FLONASEALLERGY NS; +ZYRTEC 10MG10 MG PO
[2018-03-06 13:55] VITALS: BP 171/74; PULSE 67; TEMP 97.8
== END ==
LOC: COL.ER 13:35
DX: G43.909 Migraine, unspecified, not intractable, without status migrainosus (principal); Z90.49 Acquired absence of other specified parts of digestive tract; Z98.890 Other specified postprocedural states; Z79.51 Long term (current) use of inhaled steroids
CPT/HCPCS: J0595; J2550

== ENCOUNTER 2018-03-16 10:45 | Emergency (ER) | payer MEDICARE, BC ==
[2008-04-06 07:24] VITALS: BP 120/70
[~2018-03-16] VITALS: Ht 177.8 cm; Wt 65.9 kg
[2018-03-16 10:55] VITALS: TEMP 98.2
[2018-03-16 11:48] VITALS: BP 156/91; PULSE 77
== END 2018-03-16 11:53 | disposition home or self-care (01) ==
LOC: COL.ER 10:45
DX: G43.909 Migraine, unspecified, not intractable, without status migrainosus (principal); K21.9 Gastro-esophageal reflux disease without esophagitis; Z98.890 Other specified postprocedural states; Z79.51 Long term (current) use of inhaled steroids
CPT/HCPCS: J0595; J2550

== ENCOUNTER 2018-03-23 10:12 | Emergency (ER) | payer MEDICARE, BC ==
[2008-04-06 07:24] VITALS: BP 120/70
[~2018-03-23] VITALS: Ht 177.8 cm; Wt 65.9 kg
[2018-03-23 10:17] VITALS: BP 150/72; TEMP 98.4
[2018-03-23 11:07] VITALS: PULSE 58
== END 2018-03-23 11:08 | disposition home or self-care (01) ==
LOC: COL.ER 10:12
DX: G43.909 Migraine, unspecified, not intractable, without status migrainosus (principal); K21.9 Gastro-esophageal reflux disease without esophagitis; N40.0 Benign prostatic hyperplasia without lower urinary tract symptoms; E78.5 Hyperlipidemia, unspecified; Z90.49 Acquired absence of other specified parts of digestive tract; Z98.890 Other specified postprocedural states; Z88.8 Allergy status to other drugs, medicaments and biological substances; Z87.442 Personal history of urinary calculi
CPT/HCPCS: J0595; J2550

== ENCOUNTER 2018-03-29 12:28 | Emergency (ER) | payer MEDICARE, BC ==
[2008-04-06 07:24] VITALS: BP 120/70
[~2018-03-29] VITALS: Ht 177.8 cm; Wt 62.4 kg
[2018-03-29 12:33] VITALS: BP 168/76; TEMP 98.1
[2018-03-29 13:31] VITALS: PULSE 64
== END 2018-03-29 13:31 | disposition home or self-care (01) ==
LOC: COL.ER 12:28
DX: G43.909 Migraine, unspecified, not intractable, without status migrainosus (principal); I10 Essential (primary) hypertension; Z98.890 Other specified postprocedural states; Z90.49 Acquired absence of other specified parts of digestive tract; Z79.51 Long term (current) use of inhaled steroids
CPT/HCPCS: J0595; J2550

== ENCOUNTER 2018-04-05 04:40 | Emergency (ER) | payer MEDICARE, BC ==
[2008-04-06 07:24] VITALS: BP 120/70
[~2018-04-05] VITALS: Ht 177.8 cm; Wt 65.9 kg
[2018-04-05 04:44] VITALS: BP 136/73; TEMP 98.7
[2018-04-05 05:14] VITALS: PULSE 75
== END 2018-04-05 05:15 | disposition home or self-care (01) ==
LOC: COL.ER 04:40
DX: G43.909 Migraine, unspecified, not intractable, without status migrainosus (principal)
CPT/HCPCS: J0595; J2550

== ENCOUNTER 2018-04-12 11:24 | Emergency (ER) | payer MEDICARE, BC ==
[2008-04-06 07:24] VITALS: BP 120/70
[~2018-04-12] VITALS: Ht 177.8 cm; Wt 65.9 kg
[2018-04-12 11:33] VITALS: BP 160/83; PULSE 65; TEMP 98.7
== END 2018-04-12 12:56 | disposition home or self-care (01) ==
LOC: COL.ER 11:24
DX: G43.909 Migraine, unspecified, not intractable, without status migrainosus (principal)
CPT/HCPCS: J0595; J2550

== ENCOUNTER 2018-04-23 08:16 | Emergency (ER) | payer MEDICARE, BC ==
[2008-04-06 07:24] VITALS: BP 120/70
[~2018-04-23] VITALS: Ht 177.8 cm; Wt 65.9 kg
[2018-04-23 08:26] VITALS: BP 153/77
[2018-04-23 10:11] VITALS: PULSE 53; TEMP 98.4
== END 2018-04-23 09:10 | disposition home or self-care (01) ==
LOC: COL.ER 08:16
DX: G43.909 Migraine, unspecified, not intractable, without status migrainosus (principal); I10 Essential (primary) hypertension; K21.9 Gastro-esophageal reflux disease without esophagitis; F17.210 Nicotine dependence, cigarettes, uncomplicated; Z98.890 Other specified postprocedural states; Z79.51 Long term (current) use of inhaled steroids
CPT/HCPCS: J0595; J2550

== ENCOUNTER 2018-05-01 17:11 | Emergency (ER) | payer MEDICARE, BC ==
[2008-04-06 07:24] VITALS: BP 120/70
[~2018-05-01] VITALS: Ht 172.7 cm; Wt 54.5 kg
[2018-05-01 17:28] VITALS: BP 176/88; TEMP 97.1
[2018-05-01 19:21] VITALS: PULSE 86
== END 2018-05-01 19:22 | disposition home or self-care (01) ==
LOC: COL.ER 17:11
DX: G43.909 Migraine, unspecified, not intractable, without status migrainosus (principal); K21.9 Gastro-esophageal reflux disease without esophagitis; Z87.442 Personal history of urinary calculi; Z87.891 Personal history of nicotine dependence; Z79.51 Long term (current) use of inhaled steroids
CPT/HCPCS: J0595; J2550

== ENCOUNTER 2018-05-12 17:53 | Emergency (ER) | payer MEDICARE, BC ==
[2008-04-06 07:24] VITALS: BP 120/70
[2018-05-12 18:07] VITALS: BP 144/70; TEMP 97
[2018-05-12 18:35] VITALS: PULSE 61
== END 2018-05-12 18:37 | disposition home or self-care (01) ==
LOC: COL.ER 17:53
DX: G43.909 Migraine, unspecified, not intractable, without status migrainosus (principal)
CPT/HCPCS: J0595; J2550

== ENCOUNTER 2018-05-19 14:08 | Emergency (ER) | payer MEDICARE, BC ==
[2008-04-06 07:24] VITALS: BP 120/70
[~2018-05-19] VITALS: Ht 177.8 cm; Wt 60.5 kg
[2018-05-19 14:14] VITALS: BP 166/98; TEMP 98.5
[2018-05-19 15:54] VITALS: PULSE 66
== END 2018-05-19 15:55 | disposition home or self-care (01) ==
LOC: COL.ER 14:08
DX: G43.909 Migraine, unspecified, not intractable, without status migrainosus (principal); Z87.442 Personal history of urinary calculi; Z87.19 Personal history of other diseases of the digestive system; Z98.890 Other specified postprocedural states; Z90.49 Acquired absence of other specified parts of digestive tract; Z79.51 Long term (current) use of inhaled steroids
CPT/HCPCS: J0595; J2550

== ENCOUNTER 2018-05-24 14:06 | Emergency (ER) | payer MEDICARE, BC ==
[2008-04-06 07:24] VITALS: BP 120/70
[~2018-05-24] VITALS: Ht 177.8 cm; Wt 65.9 kg
[2018-05-24 15:35] VITALS: BP 134/63; PULSE 60; TEMP 97.8
== END 2018-05-24 15:36 | disposition home or self-care (01) ==
LOC: COL.ER 14:06
DX: G43.909 Migraine, unspecified, not intractable, without status migrainosus (principal); Z87.442 Personal history of urinary calculi; Z87.891 Personal history of nicotine dependence; Z98.890 Other specified postprocedural states
CPT/HCPCS: J0595; J2550

== ENCOUNTER 2018-05-30 03:59 | Emergency (ER) | payer MEDICARE, BC ==
[2008-04-06 07:24] VITALS: BP 120/70
[~2018-05-30] VITALS: Ht 177.8 cm; Wt 65.9 kg
[2018-05-30 04:08] VITALS: BP 136/68; TEMP 98.7
[2018-05-30 04:48] VITALS: PULSE 71
== END 2018-05-30 04:52 | disposition home or self-care (01) ==
LOC: COL.ER 03:59
DX: G43.909 Migraine, unspecified, not intractable, without status migrainosus (principal); K21.9 Gastro-esophageal reflux disease without esophagitis; Z79.51 Long term (current) use of inhaled steroids
CPT/HCPCS: J0595; J2550

== ENCOUNTER 2018-06-07 04:21 | Emergency (ER) | payer MEDICARE, BC ==
[2008-04-06 07:24] VITALS: BP 120/70
[~2018-06-07] VITALS: Ht 177.8 cm; Wt 65.9 kg
[2018-06-07 04:26] VITALS: BP 153/74; TEMP 98.7
[2018-06-07 05:44] VITALS: PULSE 81
== END 2018-06-07 05:45 | disposition home or self-care (01) ==
LOC: COL.ER 04:21
DX: G43.909 Migraine, unspecified, not intractable, without status migrainosus (principal); Z87.891 Personal history of nicotine dependence; Z79.51 Long term (current) use of inhaled steroids
CPT/HCPCS: J0595; J2550

== ENCOUNTER 2018-06-12 10:21 | Emergency (ER) | payer MEDICARE, BC ==
[2008-04-06 07:24] VITALS: BP 120/70
[~2018-06-12] VITALS: Ht 177.8 cm; Wt 65.9 kg
[2018-06-12 10:24] VITALS: BP 121/74; TEMP 98.2
[2018-06-12 11:41] VITALS: PULSE 68
== END 2018-06-12 11:52 | disposition home or self-care (01) ==
LOC: COL.ER 10:21
DX: G43.909 Migraine, unspecified, not intractable, without status migrainosus (principal); Z90.49 Acquired absence of other specified parts of digestive tract; Z87.442 Personal history of urinary calculi; Z98.890 Other specified postprocedural states; Z79.51 Long term (current) use of inhaled steroids
CPT/HCPCS: J0595; J2550

== ENCOUNTER 2018-06-19 10:03 | Emergency (ER) | payer MEDICARE, BC ==
[2008-04-06 07:24] VITALS: BP 120/70
[~2018-06-19] VITALS: Ht 177.8 cm; Wt 65.9 kg
[2018-06-19 10:13] VITALS: BP 140/76; PULSE 61; TEMP 97.5
== END 2018-06-19 10:40 | disposition home or self-care (01) ==
LOC: COL.ER 10:03
DX: G43.909 Migraine, unspecified, not intractable, without status migrainosus (principal); K21.9 Gastro-esophageal reflux disease without esophagitis; Z98.890 Other specified postprocedural states; Z79.51 Long term (current) use of inhaled steroids
CPT/HCPCS: J0595; J2550

== ENCOUNTER 2018-06-24 17:19 | Emergency (ER) | payer MEDICARE, BC ==
[2008-04-06 07:24] VITALS: BP 120/70
[~2018-06-24] VITALS: Ht 177.8 cm; Wt 65.9 kg
[2018-06-24 17:37] VITALS: BP 133/78; PULSE 67; TEMP 98.7
== END 2018-06-24 18:33 | disposition home or self-care (01) ==
LOC: COL.ER 17:19
DX: G43.909 Migraine, unspecified, not intractable, without status migrainosus (principal)
CPT/HCPCS: J0595; J2550

== ENCOUNTER 2018-07-01 14:39 | Emergency (ER) | payer MEDICARE, BC ==
[2008-04-06 07:24] VITALS: BP 120/70
[~2018-07-01] VITALS: Ht 177.8 cm; Wt 65.9 kg
[2018-07-01 14:49] VITALS: TEMP 99.1
[2018-07-01 16:44] VITALS: BP 108/66; PULSE 74
== END 2018-07-01 16:45 | disposition home or self-care (01) ==
LOC: COL.ER 14:39
DX: G43.909 Migraine, unspecified, not intractable, without status migrainosus (principal); I10 Essential (primary) hypertension; Z90.49 Acquired absence of other specified parts of digestive tract
CPT/HCPCS: J0595; J2550

== ENCOUNTER 2018-07-10 16:02 | Emergency (ER) | payer MEDICARE, BC ==
[2008-04-06 07:24] VITALS: BP 120/70
[~2018-07-10] VITALS: Ht 177.8 cm; Wt 63.6 kg
[2018-07-10 16:14] VITALS: BP 133/67; TEMP 97.9
[2018-07-10 18:34] VITALS: PULSE 63
== END 2018-07-10 18:34 | disposition home or self-care (01) ==
LOC: COL.ER 16:02
DX: G43.909 Migraine, unspecified, not intractable, without status migrainosus (principal); Z90.49 Acquired absence of other specified parts of digestive tract; Z87.891 Personal history of nicotine dependence; Z88.5 Allergy status to narcotic agent; Z79.51 Long term (current) use of inhaled steroids
CPT/HCPCS: J0595; J2550

== ENCOUNTER 2018-07-18 10:48 | Emergency (ER) | payer MEDICARE, BC ==
[2008-04-06 07:24] VITALS: BP 120/70
[~2018-07-18] VITALS: Ht 177.8 cm; Wt 65.9 kg
[2018-07-18 10:48] VITALS: TEMP 97.7
[2018-07-18] MEDS ORDERED: STADOL NASA25 MG/BOT NS (10:58)
[2018-07-18] MEDS ORDERED: PHENERGAN 25 TA25 MG PO (10:58)
[2018-07-18 11:14] VITALS: BP 164/78; PULSE 65
== END 2018-07-18 11:14 | disposition home or self-care (01) ==
LOC: COL.ER 10:48
DX: G43.909 Migraine, unspecified, not intractable, without status migrainosus (principal); K21.9 Gastro-esophageal reflux disease without esophagitis; Z87.442 Personal history of urinary calculi; Z98.890 Other specified postprocedural states; Z95.9 Presence of cardiac and vascular implant and graft, unspecified; Z79.51 Long term (current) use of inhaled steroids
CPT/HCPCS: J0595; J2550

== ENCOUNTER 2018-07-22 10:48 | Emergency (ER) | payer MEDICARE, BC ==
[2008-04-06 07:24] VITALS: BP 120/70
[~2018-07-22] VITALS: Ht 177.8 cm; Wt 65.9 kg
[2018-07-22 10:59] VITALS: TEMP 98.4
[2018-07-22 13:38] LABS: BASO % 0.2 % (0.0-2.0); EOS # 0.1 (0.0-0.7); EOS % 0.5 % (0-4.0); GRAN # 10.7 (1.4-6.5); GRAN % 89.1 % (42.2-75.2); HEMATOCRIT 39.3 % (42.0-52.0); HEMOGLOBIN 13.2 g/dl (13.5-18.0); LYMPH # 0.7 (1.2-3.4); LYMPH % 6.1 % (20.0-51.0); MEAN CELL VOLUME 96 fl (80.0-100.0); MEAN CORPUSCULAR HEMOGLOBIN 32 pg (27.0-31.0); MEAN CORPUSCULAR HGB CONC 34 g/dl (33.0-37.0); MEAN PLATELET VOLUME 10.2 fl (7.4-10.4); MONO # 0.5 (0.1-0.6); MONO % 3.8 % (1.7-9.3); PLATELET COUNT 243 K/mm3 (130-400); RED BLOOD COUNT 4.11 M/mm3 (4.20-5.60); REDCELL DISTRIBUTION WIDTH-CV 13.3 % (11.5-14.5)
[2018-07-22 13:47] LABS: ALBUMIN 3.7 gm/dL (3.5-5.0); BILIRUBIN,TOTAL 0.6 mg/dL (0.0-1.0); CREATININE, serum 0.76 mg/dL (0.66-1.25); POTASSIUM 4.2 mmol/L (3.4-5.0); TOTAL PROTEIN 6.8 gm/dL (6.4-8.2)
[2018-07-22 13:51] LABS: PROTHROMBIN TIME 11.2 SECONDS (9.7-12.8)
[2018-07-22 13:54] LABS: PARTIAL THROMBOPLASTIN TIME 27.9 SECONDS (26.0-37.0)
[2018-07-22 16:37] VITALS: BP 122/72; PULSE 72
== END 2018-07-22 17:25 | disposition short-term general hospital (02) ==
LOC: COL.ER 10:48
PROVIDERS: Emergency Medicine
DX: S02.2XXA Fracture of nasal bones, initial encounter for closed fracture (principal); S02.19XA Other fracture of base of skull, initial encounter for closed fracture; S02.40DA Maxillary fracture, left side, initial encounter for closed fracture; S01.21XA Laceration without foreign body of nose, initial encounter; S06.5X0A Traumatic subdural hemorrhage without loss of consciousness, initial encounter; S06.300A Unspecified focal traumatic brain injury without loss of consciousness, initial encounter; G43.909 Migraine, unspecified, not intractable, without status migrainosus; W01.10XA Fall on same level from slipping, tripping and stumbling with subsequent striking against unspecified object, initial encounter; Y93.K1 Activity, walking an animal; Y92.410 Unspecified street and highway as the place of occurrence of the external cause
CPT/HCPCS: J0295; J1170; J1953

== ENCOUNTER 2018-07-25 07:26 | Emergency (ER) | payer MEDICARE, BC ==
[2008-04-06 07:24] VITALS: BP 120/70
[~2018-07-25] VITALS: Ht 177.8 cm; Wt 65.9 kg
[2018-07-25 07:30] VITALS: BP 130/70; TEMP 98.9
[2018-07-25 08:45] VITALS: PULSE 86
== END 2018-07-25 08:46 | disposition home or self-care (01) ==
LOC: COL.ER 07:26
DX: G43.909 Migraine, unspecified, not intractable, without status migrainosus (principal); Z87.891 Personal history of nicotine dependence; Z79.51 Long term (current) use of inhaled steroids
CPT/HCPCS: J0595; J2550

== ENCOUNTER 2018-07-30 07:05 | Emergency (ER) | payer MEDICARE, BC ==
[2008-04-06 07:24] VITALS: BP 120/70
[~2018-07-30] VITALS: Ht 172.7 cm; Wt 65.9 kg
[2018-07-30 07:07] VITALS: BP 154/76; TEMP 98.6
[2018-07-30 07:40] VITALS: PULSE 77
== END 2018-07-30 07:38 | disposition home or self-care (01) ==
LOC: COL.ER 07:05
DX: G43.909 Migraine, unspecified, not intractable, without status migrainosus (principal); Z79.51 Long term (current) use of inhaled steroids
CPT/HCPCS: J0595; J2550

== ENCOUNTER 2018-08-03 09:48 | Emergency (ER) | payer MEDICARE, BC ==
[2008-04-06 07:24] VITALS: BP 120/70
[~2018-08-03] VITALS: Ht 177.8 cm; Wt 65.9 kg
[2018-08-03 10:00] VITALS: BP 143/69; TEMP 97.1
[2018-08-03] MEDS ORDERED: ROXICODONE 55 MG/TAB PO (10:24)
[2018-08-03] MEDS ORDERED: NORCO 325 MG-51 TAB PO (10:24)
[2018-08-03 11:10] VITALS: PULSE 69
[2018-08-04] MEDS ORDERED: PERCOCET 325 MG1 TA2 PO (15:23)
== END 2018-08-03 11:11 | disposition home or self-care (01) ==
LOC: COL.ER 09:48
DX: G43.909 Migraine, unspecified, not intractable, without status migrainosus (principal); Z79.51 Long term (current) use of inhaled steroids
CPT/HCPCS: J0595; J2550

== ENCOUNTER 2018-08-04 12:04 | Emergency (ER) | payer MEDICARE, BC ==
[2008-04-06 07:24] VITALS: BP 120/70
[~2018-08-04] VITALS: Ht 177.8 cm; Wt 65.9 kg
[~2018-08-04 12:04] MED LIST changes: +ROXICODONE 55 MG/TAB PO
[2018-08-04 12:12] VITALS: TEMP 99.6
[2018-08-04] MEDS ORDERED: PERCOCET 325 MG1 TA2 PO (15:23)
[2018-08-04 15:45] VITALS: BP 110/64; PULSE 73
== END 2018-08-04 15:47 | disposition home or self-care (01) ==
LOC: COL.ER 12:04
DX: S00.81XA Abrasion of other part of head, initial encounter (principal); G43.909 Migraine, unspecified, not intractable, without status migrainosus; Z79.01 Long term (current) use of anticoagulants; Y92.410 Unspecified street and highway as the place of occurrence of the external cause; W01.0XXA Fall on same level from slipping, tripping and stumbling without subsequent striking against object, initial encounter
CPT/HCPCS: J1170; J7030

== ENCOUNTER 2018-08-20 08:56 | Emergency (ER) | payer MEDICARE, BC ==
[2008-04-06 07:24] VITALS: BP 120/70
[~2018-08-20] VITALS: Ht 177.8 cm; Wt 65.9 kg
[~2018-08-20 08:56] MED LIST changes: +PERCOCET 325 MG1 TA2 PO
[2018-08-20 08:57] VITALS: TEMP 98
[2018-08-20 10:39] VITALS: BP 159/89; PULSE 70
== END 2018-08-20 10:40 | disposition home or self-care (01) ==
LOC: COL.ER 08:56
DX: G43.909 Migraine, unspecified, not intractable, without status migrainosus (principal); I10 Essential (primary) hypertension; Z79.899 Other long term (current) drug therapy; Z87.891 Personal history of nicotine dependence
CPT/HCPCS: J0595; J2550

== ENCOUNTER 2018-08-26 07:56 | Emergency (ER) | payer MEDICARE, BC ==
[2008-04-06 07:24] VITALS: BP 120/70
[~2018-08-26] VITALS: Ht 177.8 cm; Wt 65.9 kg
[2018-08-26 07:58] VITALS: BP 174/79; PULSE 73; TEMP 98.5
== END 2018-08-26 08:55 | disposition home or self-care (01) ==
LOC: COL.ER 07:56
DX: G43.909 Migraine, unspecified, not intractable, without status migrainosus (principal); I10 Essential (primary) hypertension; K21.9 Gastro-esophageal reflux disease without esophagitis; Z90.49 Acquired absence of other specified parts of digestive tract; Z87.442 Personal history of urinary calculi; Z79.51 Long term (current) use of inhaled steroids
CPT/HCPCS: J0595; J2550

== ENCOUNTER 2018-09-05 06:38 | Emergency (ER) | payer MEDICARE, BC ==
[2008-04-06 07:24] VITALS: BP 120/70
[~2018-09-05] VITALS: Ht 177.8 cm; Wt 65.9 kg
[2018-09-05 06:43] VITALS: BP 126/74; PULSE 66; TEMP 97.9
== END 2018-09-05 07:44 | disposition home or self-care (01) ==
LOC: COL.ER 06:38
DX: R51 Headache (principal); Z90.49 Acquired absence of other specified parts of digestive tract; Z79.51 Long term (current) use of inhaled steroids
CPT/HCPCS: J0595; J2550

== ENCOUNTER 2018-09-09 13:37 | Emergency (ER) | payer MEDICARE, BC ==
[2008-04-06 07:24] VITALS: BP 120/70
[~2018-09-09] VITALS: Ht 177.8 cm; Wt 65.9 kg
[2018-09-09 13:43] VITALS: TEMP 98
[2018-09-09 16:34] VITALS: BP 135/73; PULSE 61
== END 2018-09-09 16:35 | disposition home or self-care (01) ==
LOC: COL.ER 13:37
DX: R51 Headache (principal); Z79.51 Long term (current) use of inhaled steroids
CPT/HCPCS: J0595; J2550

== ENCOUNTER 2018-09-17 13:27 | Emergency (ER) | payer MEDICARE, BC ==
[2008-04-06 07:24] VITALS: BP 120/70
[~2018-09-17] VITALS: Ht 177.8 cm; Wt 65.9 kg
[2018-09-17 13:54] LABS: BASO % 0.6 % (0.0-2.0); EOS # 0.1 (0.0-0.7); EOS % 1.3 % (0-4.0); GRAN # 4.6 (1.4-6.5); GRAN % 68.6 % (42.2-75.2); HEMATOCRIT 41.5 % (42.0-52.0); HEMOGLOBIN 13.9 g/dl (13.5-18.0); LYMPH # 1.5 (1.2-3.4); LYMPH % 21.8 % (20.0-51.0); MEAN CELL VOLUME 94 fl (80.0-100.0); MEAN CORPUSCULAR HEMOGLOBIN 32 pg (27.0-31.0); MEAN CORPUSCULAR HGB CONC 34 g/dl (33.0-37.0); MEAN PLATELET VOLUME 9.9 fl (7.4-10.4); MONO # 0.5 (0.1-0.6); MONO % 7.6 % (1.7-9.3); PLATELET COUNT 309 K/mm3 (130-400)
[2018-09-17 14:11] LABS: ALBUMIN 4.2 gm/dL (3.5-5.0); BILIRUBIN,TOTAL 1.1 mg/dL (0.0-1.0); C-REACTIVE PROTEIN 0.6 mg/dL (0.0-0.9); CALCIUM 9.8 mg/dL (8.4-10.2); CREATININE, serum 0.62 mg/dL (0.66-1.25); POTASSIUM 4.2 mmol/L (3.4-5.0); TOTAL PROTEIN 7.9 gm/dL (6.4-8.2)
[2018-09-17 14:48] VITALS: BP 158/85; PULSE 64; TEMP 98.5
== END 2018-09-17 14:57 | disposition home or self-care (01) ==
LOC: COL.ER 13:27
PROVIDERS: Physician Assistant
DX: T40.4X5A Adverse effect of other synthetic narcotics, initial encounter (principal); G43.909 Migraine, unspecified, not intractable, without status migrainosus; K21.9 Gastro-esophageal reflux disease without esophagitis; Z87.442 Personal history of urinary calculi; Z98.890 Other specified postprocedural states; Z79.51 Long term (current) use of inhaled steroids; Z88.5 Allergy status to narcotic agent
CPT/HCPCS: J1200; J2060; J2405; J7030

== ENCOUNTER 2018-09-26 06:41 | Emergency (ER) | payer MEDICARE, BC ==
[2008-04-06 07:24] VITALS: BP 120/70
[~2018-09-26] VITALS: Ht 177.8 cm; Wt 65.9 kg
[2018-09-26 06:43] VITALS: TEMP 98.4
[2018-09-26 08:08] VITALS: BP 134/80; PULSE 54
== END 2018-09-26 08:09 | disposition home or self-care (01) ==
LOC: COL.ER 06:41
DX: R51 Headache (principal); Z79.51 Long term (current) use of inhaled steroids
CPT/HCPCS: J0595; J2550

== ENCOUNTER 2018-10-04 12:39 | Emergency (ER) | payer MEDICARE, BC ==
[2008-04-06 07:24] VITALS: BP 120/70
[~2018-10-04] VITALS: Ht 177.8 cm; Wt 65.9 kg
[2018-10-04 12:46] VITALS: BP 149/70; TEMP 97.9
[2018-10-04 13:26] VITALS: PULSE 72
== END 2018-10-04 13:27 | disposition home or self-care (01) ==
LOC: COL.ER 12:39
DX: G43.909 Migraine, unspecified, not intractable, without status migrainosus (principal); Z87.891 Personal history of nicotine dependence; Z79.51 Long term (current) use of inhaled steroids
CPT/HCPCS: J0595; J2550

== ENCOUNTER 2018-10-10 07:50 | Emergency (ER) | payer MEDICARE, BC ==
[2008-04-06 07:24] VITALS: BP 120/70
[~2018-10-10] VITALS: Ht 177.8 cm; Wt 65.9 kg
[2018-10-10 07:55] VITALS: TEMP 98.3
[2018-10-10 08:44] VITALS: BP 129/68; PULSE 85
== END 2018-10-10 08:44 | disposition home or self-care (01) ==
LOC: COL.ER 07:50
DX: G43.909 Migraine, unspecified, not intractable, without status migrainosus (principal); Z90.49 Acquired absence of other specified parts of digestive tract
CPT/HCPCS: J0595; J2550

== ENCOUNTER 2018-10-14 13:15 | Outpatient (RCR) | payer MEDICARE, BC ==
[2018-10-18] MEDS ORDERED: IMITREX 5MGNAS NS (09:52)
[2018-11-05] MEDS ORDERED: ERGOCALCIFER50000 IU PO (13:20)
== END 2018-11-10 | disposition home or self-care (01) ==
LOC: WSC
DX: S02.401D Maxillary fracture, unspecified side, subsequent encounter for fracture with routine healing (principal); S02.19XD Other fracture of base of skull, subsequent encounter for fracture with routine healing; S06.5X0D Traumatic subdural hemorrhage without loss of consciousness, subsequent encounter; R26.89 Other abnormalities of gait and mobility; W01.0XXD Fall on same level from slipping, tripping and stumbling without subsequent striking against object, subsequent encounter
CPT/HCPCS: G8978-GP; G8979-GP

== ENCOUNTER 2018-10-18 09:37 | Emergency (ER) | payer MEDICARE, BC ==
[2008-04-06 07:24] VITALS: BP 120/70
[~2018-10-18] VITALS: Ht 175.3 cm; Wt 65.9 kg
[2018-10-18 09:44] VITALS: BP 130/68; PULSE 82; TEMP 99.1
[2018-10-18] MEDS ORDERED: IMITREX 5MGNAS NS (09:52)
== END 2018-10-18 10:28 | disposition home or self-care (01) ==
LOC: COL.ER 09:37
DX: G43.909 Migraine, unspecified, not intractable, without status migrainosus (principal); K21.9 Gastro-esophageal reflux disease without esophagitis; Z87.442 Personal history of urinary calculi; Z79.51 Long term (current) use of inhaled steroids
CPT/HCPCS: J0595; J2550

== ENCOUNTER 2018-10-21 10:24 | Emergency (ER) | payer MEDICARE, BC ==
[2008-04-06 07:24] VITALS: BP 120/70
[~2018-10-21] VITALS: Ht 175.3 cm; Wt 65.9 kg
[2018-10-21 10:28] VITALS: TEMP 99
[2018-10-21 11:26] VITALS: BP 128/70; PULSE 80
== END 2018-10-21 11:27 | disposition home or self-care (01) ==
LOC: COL.ER 10:24
DX: G43.909 Migraine, unspecified, not intractable, without status migrainosus (principal); K21.9 Gastro-esophageal reflux disease without esophagitis; M25.511 Pain in right shoulder; G89.29 Other chronic pain
CPT/HCPCS: J0595; J2550

== ENCOUNTER 2018-10-25 11:03 | Emergency (ER) | payer MEDICARE, BC ==
[2008-04-06 07:24] VITALS: BP 120/70
[~2018-10-25] VITALS: Ht 175.3 cm; Wt 65.9 kg
[2018-10-25 11:14] VITALS: TEMP 98.3
[2018-10-25 11:47] LABS: HEMATOCRIT 38.8 % (42.0-52.0); HEMOGLOBIN 13.1 g/dl (13.5-18.0); MEAN CELL VOLUME 94 fl (80.0-100.0); MEAN CORPUSCULAR HEMOGLOBIN 32 pg (27.0-31.0); MEAN CORPUSCULAR HGB CONC 34 g/dl (33.0-37.0); MEAN PLATELET VOLUME 9.5 fl (7.4-10.4); PLATELET COUNT 213 K/mm3 (130-400); RED BLOOD COUNT 4.13 M/mm3 (4.20-5.60); REDCELL DISTRIBUTION WIDTH-CV 13.2 % (11.5-14.5)
[2018-10-25 12:06] LABS: ALBUMIN 3.8 gm/dL (3.5-5.0); BILIRUBIN,TOTAL 1.1 mg/dL (0.0-1.0); CREATININE, serum 0.77 mg/dL (0.66-1.25); POTASSIUM 3.9 mmol/L (3.4-5.0); TOTAL PROTEIN 7.4 gm/dL (6.4-8.2)
[2018-10-25 12:56] VITALS: BP 148/91; PULSE 61
[2018-10-25 13:27] LABS: BAND 6 % (0-10); LYMPHOCYTE 16 % (20.0-51.0); NEUTROPHILS 69 % (42.0-75.2); PLATELET ESTIMATE NORMAL (NORMAL)
== END 2018-10-25 13:03 | disposition home or self-care (01) ==
LOC: COL.ER 11:03
PROVIDERS: Family Medicine
DX: G43.909 Migraine, unspecified, not intractable, without status migrainosus (principal); J32.9 Chronic sinusitis, unspecified; Z87.891 Personal history of nicotine dependence
CPT/HCPCS: J0595; J2550

== ENCOUNTER 2018-10-31 08:55 | Emergency (ER) | payer MEDICARE, BC ==
[2008-04-06 07:24] VITALS: BP 120/70
[~2018-10-31] VITALS: Ht 175.3 cm; Wt 65.9 kg
[2018-10-31 09:03] VITALS: BP 116/72; TEMP 97.9
[2018-10-31 10:03] VITALS: PULSE 68
== END 2018-10-31 10:04 | disposition home or self-care (01) ==
LOC: COL.ER 08:55
DX: G43.909 Migraine, unspecified, not intractable, without status migrainosus (principal); J01.90 Acute sinusitis, unspecified; F17.210 Nicotine dependence, cigarettes, uncomplicated; Z88.5 Allergy status to narcotic agent; Z90.49 Acquired absence of other specified parts of digestive tract; Z87.442 Personal history of urinary calculi
CPT/HCPCS: J0595; J2550

== ENCOUNTER 2018-11-05 12:41 | Emergency (ER) | payer MEDICARE, BC ==
[2008-04-06 07:24] VITALS: BP 120/70
[~2018-11-05] VITALS: Ht 175.3 cm; Wt 65.9 kg
[2018-11-05 12:50] VITALS: TEMP 98.8
[2018-11-05] MEDS ORDERED: ERGOCALCIFER50000 IU PO (13:20)
[2018-11-05 13:39] VITALS: BP 97/71; PULSE 86
== END 2018-11-05 13:39 | disposition home or self-care (01) ==
LOC: COL.ER 12:41
DX: G43.909 Migraine, unspecified, not intractable, without status migrainosus (principal); Z90.49 Acquired absence of other specified parts of digestive tract; Z98.890 Other specified postprocedural states
CPT/HCPCS: J0595; J2550

== ENCOUNTER 2018-11-11 10:23 | Emergency (ER) | payer MEDICARE, BC ==
[2008-04-06 07:24] VITALS: BP 120/70
[~2018-11-11] VITALS: Ht 175.3 cm; Wt 65.9 kg
[2018-11-11 10:25] VITALS: BP 144/68; TEMP 98.4
[2018-11-11 11:22] VITALS: PULSE 70
== END 2018-11-11 11:23 | disposition home or self-care (01) ==
LOC: COL.ER 10:23
DX: G43.909 Migraine, unspecified, not intractable, without status migrainosus (principal); F17.210 Nicotine dependence, cigarettes, uncomplicated; Z90.49 Acquired absence of other specified parts of digestive tract; Z87.442 Personal history of urinary calculi; Z79.51 Long term (current) use of inhaled steroids
CPT/HCPCS: J0595; J2550

== ENCOUNTER 2018-11-18 16:51 | Emergency (ER) | payer MEDICARE, BC ==
[2008-04-06 07:24] VITALS: BP 120/70
[~2018-11-18] VITALS: Ht 175.3 cm; Wt 65.9 kg
[2018-11-18 16:56] VITALS: BP 138/67; TEMP 99
[2018-11-18 18:25] VITALS: PULSE 80
== END 2018-11-18 18:30 | disposition home or self-care (01) ==
LOC: COL.ER 16:51
DX: G43.909 Migraine, unspecified, not intractable, without status migrainosus (principal); Z90.49 Acquired absence of other specified parts of digestive tract; Z79.51 Long term (current) use of inhaled steroids
CPT/HCPCS: J0595; J2550

== ENCOUNTER 2018-11-27 08:16 | Emergency (ER) | payer MEDICARE, BC ==
[2008-04-06 07:24] VITALS: BP 120/70
[~2018-11-27] VITALS: Ht 175.3 cm; Wt 65.9 kg
[2018-11-27 08:18] VITALS: BP 139/79; PULSE 102; TEMP 98.2
[2018-11-27] MEDS ORDERED: LEVAQUIN 750MG750 M1 PO (08:40)
[2018-11-27] MEDS ORDERED: MUCINEX 60600 MG/TA1 PO (08:41)
== END 2018-11-27 08:58 | disposition home or self-care (01) ==
LOC: COL.ER 08:16
DX: G43.909 Migraine, unspecified, not intractable, without status migrainosus (principal); Z79.51 Long term (current) use of inhaled steroids
CPT/HCPCS: J0595; J2550

== ENCOUNTER 2018-11-29 15:22 | Emergency (ER) | payer MEDICARE, BC ==
[2008-04-06 07:24] VITALS: BP 120/70
[~2018-11-29] VITALS: Ht 175.3 cm; Wt 65.9 kg
[~2018-11-29 15:22] MED LIST changes: +LEVAQUIN 750MG750 M1 PO; +MUCINEX 60600 MG/TA1 PO
[2018-11-29 15:47] VITALS: TEMP 97.6
[2018-11-29 15:57] LABS: BASO % 0.4 % (0.0-2.0); EOS # 0.1 (0.0-0.7); EOS % 0.6 % (0-4.0); GRAN # 5.6 (1.4-6.5); GRAN % 72.2 % (42.2-75.2); HEMATOCRIT 39.9 % (42.0-52.0); HEMOGLOBIN 13.6 g/dl (13.5-18.0); LYMPH # 1.6 (1.2-3.4); LYMPH % 20.9 % (20.0-51.0); MEAN CELL VOLUME 92 fl (80.0-100.0); MEAN CORPUSCULAR HEMOGLOBIN 31 pg (27.0-31.0); MEAN CORPUSCULAR HGB CONC 34 g/dl (33.0-37.0); MEAN PLATELET VOLUME 9.8 fl (7.4-10.4); MONO # 0.5 (0.1-0.6); MONO % 5.8 % (1.7-9.3); PLATELET COUNT 298 K/mm3 (130-400); RED BLOOD COUNT 4.35 M/mm3 (4.20-5.60); REDCELL DISTRIBUTION WIDTH-CV 13.8 % (11.5-14.5)
[2018-11-29 16:01] LABS: INR 1.1 (0.8-3.0)
[2018-11-29 16:15] LABS: ALANINE AMINOTRANSFERASE < 6 U/L (21-72); ALBUMIN 3.8 gm/dL (3.5-5.0); ALKALINE PHOSPHATASE 51 U/L (50-136); ANION GAP 7 mmol/L (7-16); AST,SGOT 24 U/L (15-37); BILIRUBIN,TOTAL 0.9 mg/dL (0.0-1.0); BLOOD UREA NITROGEN 14 mg/dL (9-20); CALCIUM 9.4 mg/dL (8.4-10.2); CARBON DIOXIDE 29 mmol/L (22-30); CHLORIDE 103 mmol/L (98-107); CREATININE, serum 1.01 (0.66-1.25); GLUCOSE 117 mg/dL (74-106); POTASSIUM 3.7 mmol/L (3.4-5.0); SODIUM 139 mmol/L (137-145); TOTAL PROTEIN 7.4 gm/dL (6.4-8.2)
[2018-11-29 16:31] LABS: TROPONIN-I < 0.012 ng/mL (0.000-0.035)
[2018-11-29 19:39] VITALS: BP 138/96; PULSE 81
== END 2018-11-29 19:41 | disposition home or self-care (01) ==
LOC: COL.ER 15:22
PROVIDERS: Emergency Medicine
DX: R07.89 Other chest pain (principal); G43.909 Migraine, unspecified, not intractable, without status migrainosus; Z95.9 Presence of cardiac and vascular implant and graft, unspecified; Z79.51 Long term (current) use of inhaled steroids
CPT/HCPCS: J0595

== ENCOUNTER 2018-12-04 16:57 | Emergency (ER) | payer MEDICARE, BC ==
[2008-04-06 07:24] VITALS: BP 120/70
[~2018-12-04] VITALS: Ht 175.3 cm; Wt 65.9 kg
[2018-12-04 19:37] VITALS: BP 141/84; PULSE 80; TEMP 98
== END 2018-12-04 19:52 | disposition home or self-care (01) ==
LOC: COL.ER 16:57
DX: G43.909 Migraine, unspecified, not intractable, without status migrainosus (principal); Z79.51 Long term (current) use of inhaled steroids
CPT/HCPCS: J0595; J2550

== ENCOUNTER 2018-12-10 05:15 | Emergency (ER) | payer MEDICARE, BC ==
[2008-04-06 07:24] VITALS: BP 120/70
[~2018-12-10] VITALS: Ht 175.3 cm; Wt 65.9 kg
[2018-12-10 05:21] VITALS: BP 155/91
[2018-12-10 05:59] VITALS: PULSE 90; TEMP 98.2
== END 2018-12-10 06:00 | disposition home or self-care (01) ==
LOC: COL.ER 05:15
DX: G43.909 Migraine, unspecified, not intractable, without status migrainosus (principal); Z87.891 Personal history of nicotine dependence; Z79.51 Long term (current) use of inhaled steroids
CPT/HCPCS: J0595; J2550

== ENCOUNTER 2018-12-14 11:52 | Emergency (ER) | payer MEDICARE, BC ==
[2008-04-06 07:24] VITALS: BP 120/70
[~2018-12-14] VITALS: Ht 175.3 cm; Wt 65.9 kg
[2018-12-14 12:44] VITALS: BP 128/80; PULSE 65; TEMP 97.8
== END 2018-12-14 12:35 | disposition home or self-care (01) ==
LOC: COL.ER 11:52
DX: G43.909 Migraine, unspecified, not intractable, without status migrainosus (principal); Z87.442 Personal history of urinary calculi; Z90.49 Acquired absence of other specified parts of digestive tract; Z88.5 Allergy status to narcotic agent
CPT/HCPCS: J0595; J2550

== ENCOUNTER 2018-12-19 04:25 | Emergency (ER) | payer MEDICARE, BC ==
[2008-04-06 07:24] VITALS: BP 120/70
[~2018-12-19] VITALS: Ht 175.3 cm; Wt 65.9 kg
[2018-12-19 04:30] VITALS: TEMP 98.9
[2018-12-19 04:49] VITALS: BP 116/89; PULSE 94
== END 2018-12-19 04:49 | disposition home or self-care (01) ==
LOC: COL.ER 04:25
DX: G43.909 Migraine, unspecified, not intractable, without status migrainosus (principal); Z79.51 Long term (current) use of inhaled steroids
CPT/HCPCS: J0595; J2550

== ENCOUNTER 2018-12-23 14:10 | Emergency (ER) | payer MEDICARE, BC ==
[2008-04-06 07:24] VITALS: BP 120/70
[~2018-12-23] VITALS: Ht 175.3 cm; Wt 65.9 kg
[2018-12-23 14:14] VITALS: BP 149/73; TEMP 97.3
[2018-12-23 15:40] VITALS: PULSE 95
== END 2018-12-23 15:41 | disposition home or self-care (01) ==
LOC: COL.ER 14:10
DX: G43.909 Migraine, unspecified, not intractable, without status migrainosus (principal); Z87.891 Personal history of nicotine dependence; Z79.51 Long term (current) use of inhaled steroids
CPT/HCPCS: J0595; J2550

== ENCOUNTER 2018-12-26 08:03 | Emergency (ER) | payer MEDICARE, BC ==
[2008-04-06 07:24] VITALS: BP 120/70
[~2018-12-26] VITALS: Ht 175.3 cm; Wt 65.9 kg
[2018-12-26 08:16] VITALS: BP 137/85; TEMP 97.2
[2018-12-26] MEDS ORDERED: VITAMIN D31000 I1 PO (08:35)
[2018-12-26 08:46] VITALS: PULSE 73
== END 2018-12-26 08:47 | disposition home or self-care (01) ==
LOC: COL.ER 08:03
DX: G43.909 Migraine, unspecified, not intractable, without status migrainosus (principal); K21.9 Gastro-esophageal reflux disease without esophagitis; Z87.442 Personal history of urinary calculi
CPT/HCPCS: J0595; J2550

== ENCOUNTER 2019-01-02 08:25 | Emergency (ER) | payer MEDICARE, BC ==
[2008-04-06 07:24] VITALS: BP 120/70
[~2019-01-02] VITALS: Ht 175.3 cm; Wt 65.9 kg
[~2019-01-02 08:25] MED LIST changes: +VITAMIN D31000 I1 PO
[2019-01-02 08:27] VITALS: BP 130/81; TEMP 97.7
[2019-01-02 09:25] VITALS: PULSE 56
== END 2019-01-02 09:25 | disposition home or self-care (01) ==
LOC: COL.ER 08:25
DX: G43.909 Migraine, unspecified, not intractable, without status migrainosus (principal)
CPT/HCPCS: J0595; J2550

== ENCOUNTER → 2019-01-03 | Emergency (ER) | payer MEDICARE, BC | LOC: COL.ER 13:51 | DX: Z72.9 Problem related to lifestyle, unspecified (principal) ==

== ENCOUNTER 2019-01-10 11:10 | Emergency (ER) | payer MEDICARE, BC ==
[2008-04-06 07:24] VITALS: BP 120/70
[~2019-01-10] VITALS: Ht 175.3 cm; Wt 65.9 kg
[2019-01-10 11:21] VITALS: TEMP 99.1
[2019-01-10] MEDS ORDERED: ERGOCALCIFER50000 IU PO (12:34)
[2019-01-10 13:38] VITALS: BP 119/91; PULSE 83
== END 2019-01-10 13:38 | disposition home or self-care (01) ==
LOC: COL.ER 11:10
DX: G43.909 Migraine, unspecified, not intractable, without status migrainosus (principal); I10 Essential (primary) hypertension; Z87.891 Personal history of nicotine dependence
CPT/HCPCS: J0595; J2550

== ENCOUNTER 2019-01-18 08:05 | Emergency (ER) | payer MEDICARE, BC ==
[2008-04-06 07:24] VITALS: BP 120/70
[~2019-01-18] VITALS: Ht 175.3 cm; Wt 65.9 kg
[2019-01-18 08:10] VITALS: TEMP 98.8
[2019-01-18 09:40] VITALS: BP 147/75; PULSE 55
== END 2019-01-18 09:40 | disposition home or self-care (01) ==
LOC: COL.ER 08:05
DX: G43.909 Migraine, unspecified, not intractable, without status migrainosus (principal); I10 Essential (primary) hypertension; F17.210 Nicotine dependence, cigarettes, uncomplicated; Z87.81 Personal history of (healed) traumatic fracture; Z90.49 Acquired absence of other specified parts of digestive tract; Z98.890 Other specified postprocedural states
CPT/HCPCS: J0595; J2550

== ENCOUNTER 2019-01-29 16:05 | Emergency (ER) | payer MEDICARE, BC ==
[2008-04-06 07:24] VITALS: BP 120/70
[~2019-01-29] VITALS: Ht 180.3 cm; Wt 62.8 kg
[2019-01-29 16:14] VITALS: BP 148/83; TEMP 97.6
[2019-01-29 19:21] VITALS: PULSE 71
== END 2019-01-29 19:21 | disposition home or self-care (01) ==
LOC: COL.ER 16:05
DX: G43.909 Migraine, unspecified, not intractable, without status migrainosus (principal)
CPT/HCPCS: J0595; J2550

== ENCOUNTER 2019-02-03 10:25 | Emergency (ER) | payer MEDICARE, BC ==
[2008-04-06 07:24] VITALS: BP 120/70
[~2019-02-03] VITALS: Ht 175.3 cm; Wt 63.6 kg
[2019-02-03 10:34] VITALS: BP 147/85
[2019-02-03] MEDS ORDERED: STADOL NASA25 MG/BOT PO (10:38)
[2019-02-03 12:03] VITALS: PULSE 65; TEMP 98.6
== END 2019-02-03 12:06 | disposition home or self-care (01) ==
LOC: COL.ER 10:25
DX: G43.909 Migraine, unspecified, not intractable, without status migrainosus (principal); I10 Essential (primary) hypertension
CPT/HCPCS: J0595; J2550

== ENCOUNTER 2019-02-06 07:55 | Emergency (ER) | payer MEDICARE, BC ==
[2008-04-06 07:24] VITALS: BP 120/70
[~2019-02-06] VITALS: Ht 175.3 cm; Wt 65.9 kg
[~2019-02-06 07:55] MED LIST changes: +STADOL NASA25 MG/BOT PO
[2019-02-06 08:00] VITALS: BP 183/79; PULSE 62; TEMP 98.2
== END 2019-02-06 08:35 | disposition home or self-care (01) ==
LOC: COL.ER 07:55
DX: G43.909 Migraine, unspecified, not intractable, without status migrainosus (principal); K21.9 Gastro-esophageal reflux disease without esophagitis; Z87.442 Personal history of urinary calculi; Z98.890 Other specified postprocedural states
CPT/HCPCS: J0595; J2550

== ENCOUNTER 2019-02-10 03:14 | Emergency (ER) | payer MEDICARE, BC ==
[2008-04-06 07:24] VITALS: BP 120/70
[~2019-02-10] VITALS: Ht 175.3 cm; Wt 65.9 kg
[2019-02-10 03:18] VITALS: BP 146/78; TEMP 98.2
[2019-02-10 03:41] VITALS: PULSE 75
== END 2019-02-10 03:41 | disposition home or self-care (01) ==
LOC: COL.ER 03:14
DX: G43.909 Migraine, unspecified, not intractable, without status migrainosus (principal)
CPT/HCPCS: J0595; J2550

== ENCOUNTER 2019-02-14 11:55 | Emergency (ER) | payer MEDICARE, BC ==
[2008-04-06 07:24] VITALS: BP 120/70
[~2019-02-14] VITALS: Ht 175.3 cm; Wt 65.9 kg
[2019-02-14 12:01] VITALS: BP 168/81; PULSE 61; TEMP 97
== END 2019-02-14 12:24 | disposition home or self-care (01) ==
LOC: COL.ER 11:55
DX: G43.909 Migraine, unspecified, not intractable, without status migrainosus (principal)
CPT/HCPCS: J0595; J2550

== ENCOUNTER 2019-02-18 06:25 | Emergency (ER) | payer MEDICARE, BC ==
[2008-04-06 07:24] VITALS: BP 120/70
[~2019-02-18] VITALS: Ht 175.3 cm; Wt 65.9 kg
[2019-02-18 06:35] VITALS: BP 152/72; TEMP 97.6
[2019-02-18 07:13] VITALS: PULSE 69
== END 2019-02-18 07:13 | disposition home or self-care (01) ==
LOC: COL.ER 06:25
DX: R51 Headache (principal)
CPT/HCPCS: J0595; J2550

== ENCOUNTER 2019-02-19 08:45 | Outpatient (RCR) | payer MEDICARE, BC | END 2019-03-24 | disposition still patient (30) | LOC: WSPT | DX: R26.9 Unspecified abnormalities of gait and mobility (principal) ==

== ENCOUNTER 2019-02-22 15:35 | Emergency (ER) | payer MEDICARE, BC ==
[2008-04-06 07:24] VITALS: BP 120/70
[~2019-02-22] VITALS: Ht 175.3 cm; Wt 65.9 kg
[2019-02-22 15:48] VITALS: BP 144/85; TEMP 97.8
[2019-02-22 16:07] VITALS: PULSE 73
== END 2019-02-22 16:10 | disposition home or self-care (01) ==
LOC: COL.ER 15:35
DX: G43.909 Migraine, unspecified, not intractable, without status migrainosus (principal); Z90.49 Acquired absence of other specified parts of digestive tract
CPT/HCPCS: J0595; J2550

== ENCOUNTER 2019-02-25 04:26 | Emergency (ER) | payer MEDICARE, BC ==
[2008-04-06 07:24] VITALS: BP 120/70
[2019-02-25 04:37] VITALS: BP 165/79; PULSE 78; TEMP 98.9
== END 2019-02-25 05:11 | disposition home or self-care (01) ==
LOC: COL.ER 04:26
DX: G43.909 Migraine, unspecified, not intractable, without status migrainosus (principal)
CPT/HCPCS: J0595; J2550

== ENCOUNTER 2019-02-28 08:24 | Emergency (ER) | payer MEDICARE, BC ==
[2008-04-06 07:24] VITALS: BP 120/70
[~2019-02-28] VITALS: Ht 175.3 cm; Wt 65.9 kg
[2019-02-28 08:31] VITALS: BP 169/96; PULSE 62; TEMP 97.6
== END 2019-02-28 09:05 | disposition home or self-care (01) ==
LOC: COL.ER 08:24
DX: G43.909 Migraine, unspecified, not intractable, without status migrainosus (principal); K21.9 Gastro-esophageal reflux disease without esophagitis; Z87.442 Personal history of urinary calculi; Z90.49 Acquired absence of other specified parts of digestive tract; Z88.5 Allergy status to narcotic agent
CPT/HCPCS: J0595; J2550

== ENCOUNTER 2019-03-03 08:39 | Emergency (ER) | payer MEDICARE, BC ==
[2008-04-06 07:24] VITALS: BP 120/70
[~2019-03-03] VITALS: Ht 175.3 cm; Wt 65.9 kg
[2019-03-03 09:55] VITALS: BP 151/72; PULSE 66; TEMP 99
== END 2019-03-03 09:55 | disposition home or self-care (01) ==
LOC: COL.ER 08:39
DX: G43.909 Migraine, unspecified, not intractable, without status migrainosus (principal); Z90.49 Acquired absence of other specified parts of digestive tract; Z88.5 Allergy status to narcotic agent; Z87.891 Personal history of nicotine dependence; Z87.442 Personal history of urinary calculi
CPT/HCPCS: J0595; J2550

== ENCOUNTER 2019-03-07 04:20 | Emergency (ER) | payer MEDICARE, BC ==
[2008-04-06 07:24] VITALS: BP 120/70
[~2019-03-07] VITALS: Ht 175.3 cm; Wt 65.9 kg
[2019-03-07 04:23] VITALS: BP 164/84; TEMP 99.1
[2019-03-07 04:36] VITALS: PULSE 71
== END 2019-03-07 04:36 | disposition home or self-care (01) ==
LOC: COL.ER 04:20
DX: G43.909 Migraine, unspecified, not intractable, without status migrainosus (principal)
CPT/HCPCS: J0595; J2550

== ENCOUNTER 2019-03-13 13:54 | Emergency (ER) | payer MEDICARE, BC ==
[2008-04-06 07:24] VITALS: BP 120/70
[~2019-03-13] VITALS: Ht 175.3 cm; Wt 65.9 kg
[2019-03-13 13:58] VITALS: BP 122/73; TEMP 98.8
[2019-03-13 15:26] VITALS: PULSE 61
== END 2019-03-13 15:28 | disposition home or self-care (01) ==
LOC: COL.ER 13:54
DX: G43.909 Migraine, unspecified, not intractable, without status migrainosus (principal); Z87.891 Personal history of nicotine dependence; Z88.5 Allergy status to narcotic agent; Z90.49 Acquired absence of other specified parts of digestive tract; Z87.442 Personal history of urinary calculi
CPT/HCPCS: J0595; J2550

== ENCOUNTER 2019-03-20 07:21 | Emergency (ER) | payer MEDICARE, BC ==
[2008-04-06 07:24] VITALS: BP 120/70
[~2019-03-20] VITALS: Ht 175.3 cm; Wt 65.9 kg
[2019-03-20 07:26] VITALS: BP 127/74; PULSE 70; TEMP 98.4
== END 2019-03-20 08:15 | disposition home or self-care (01) ==
LOC: COL.ER 07:21
DX: G43.909 Migraine, unspecified, not intractable, without status migrainosus (principal)
CPT/HCPCS: J0595; J2550

== ENCOUNTER 2019-03-23 08:58 | Emergency (ER) | payer MEDICARE, BC ==
[2008-04-06 07:24] VITALS: BP 120/70
[~2019-03-23] VITALS: Ht 175.3 cm; Wt 65.9 kg
[2019-03-23 09:01] VITALS: BP 151/68; TEMP 97.9
[2019-03-23 09:55] VITALS: PULSE 70
== END 2019-03-23 09:56 | disposition home or self-care (01) ==
LOC: COL.ER 08:58
DX: G43.909 Migraine, unspecified, not intractable, without status migrainosus (principal); Z88.5 Allergy status to narcotic agent
CPT/HCPCS: J0595; J2550

== ENCOUNTER 2019-03-27 07:23 | Emergency (ER) | payer MEDICARE, BC ==
[2008-04-06 07:24] VITALS: BP 120/70
[~2019-03-27] VITALS: Ht 175.3 cm; Wt 65.9 kg
[2019-03-27 07:39] VITALS: BP 143/83; TEMP 97.8
[2019-03-27 08:55] VITALS: PULSE 68
== END 2019-03-27 09:00 | disposition home or self-care (01) ==
LOC: COL.ER 07:23
DX: G43.909 Migraine, unspecified, not intractable, without status migrainosus (principal)
CPT/HCPCS: J0595; J2550

== ENCOUNTER 2019-04-03 04:53 | Emergency (ER) | payer MEDICARE, BC ==
[2008-04-06 07:24] VITALS: BP 120/70
[~2019-04-03] VITALS: Ht 175.3 cm; Wt 65.9 kg
[2019-04-03 04:58] VITALS: BP 132/86; PULSE 81; TEMP 97.4
[2019-04-03] MEDS ORDERED: IMITREX 6M6 MG/0.5 M SQ (05:04)
== END 2019-04-03 06:10 | disposition home or self-care (01) ==
LOC: COL.ER 04:53
DX: G43.909 Migraine, unspecified, not intractable, without status migrainosus (principal); K21.9 Gastro-esophageal reflux disease without esophagitis
CPT/HCPCS: J0595; J2550

== ENCOUNTER → 2019-04-06 | Emergency (ER) | payer MEDICARE, BC ==
[2008-04-06 07:24] VITALS: BP 120/70
[~2019-04-06] VITALS: Ht 175.3 cm; Wt 65.9 kg
[2019-04-06 09:45] VITALS: BP 120/92; TEMP 98.1
[2019-04-06 11:38] VITALS: PULSE 72
== END ==
LOC: COL.ER 09:31
DX: G43.909 Migraine, unspecified, not intractable, without status migrainosus (principal); Z90.49 Acquired absence of other specified parts of digestive tract; Z87.442 Personal history of urinary calculi
CPT/HCPCS: J0595; J2550

== ENCOUNTER 2019-04-10 14:27 | Emergency (ER) | payer MEDICARE, BC ==
[2008-04-06 07:24] VITALS: BP 120/70
[~2019-04-10] VITALS: Ht 175.3 cm; Wt 65.9 kg
[2019-04-10 14:40] VITALS: BP 151/85; TEMP 97.9
[2019-04-10 15:33] VITALS: PULSE 90
== END 2019-04-10 15:58 | disposition home or self-care (01) ==
LOC: COL.ER 14:27
DX: G43.909 Migraine, unspecified, not intractable, without status migrainosus (principal)
CPT/HCPCS: J0595; J2550

== ENCOUNTER 2019-04-13 09:13 | Emergency (ER) | payer MEDICARE, BC ==
[2008-04-06 07:24] VITALS: BP 120/70
[~2019-04-13] VITALS: Ht 175.3 cm; Wt 63.6 kg
[2019-04-13 09:18] VITALS: BP 129/65; TEMP 97.4
[2019-04-13 09:41] VITALS: PULSE 85
== END 2019-04-13 09:41 | disposition home or self-care (01) ==
LOC: COL.ER 09:13
DX: G43.909 Migraine, unspecified, not intractable, without status migrainosus (principal); K21.9 Gastro-esophageal reflux disease without esophagitis
CPT/HCPCS: J0595

== ENCOUNTER 2019-04-16 09:19 | Emergency (ER) | payer MEDICARE, BC ==
[2008-04-06 07:24] VITALS: BP 120/70
[~2019-04-16] VITALS: Ht 177.8 cm; Wt 84.1 kg
[2019-04-16 09:28] VITALS: BP 155/73
[2019-04-16 10:26] VITALS: PULSE 67; TEMP 98.6
== END 2019-04-16 10:26 | disposition home or self-care (01) ==
LOC: COL.ER 09:19
DX: G43.909 Migraine, unspecified, not intractable, without status migrainosus (principal); K21.9 Gastro-esophageal reflux disease without esophagitis; Z90.49 Acquired absence of other specified parts of digestive tract; Z88.5 Allergy status to narcotic agent; Z87.442 Personal history of urinary calculi
CPT/HCPCS: J0595

== ENCOUNTER 2019-04-26 09:26 | Emergency (ER) | payer MEDICARE, BC ==
[2008-04-06 07:24] VITALS: BP 120/70
[~2019-04-26] VITALS: Ht 177.8 cm; Wt 65.9 kg
[2019-04-26 09:29] VITALS: BP 145/84; TEMP 99
[2019-04-26 10:25] VITALS: PULSE 88
== END 2019-04-26 10:25 | disposition home or self-care (01) ==
LOC: COL.ER 09:26
DX: G43.909 Migraine, unspecified, not intractable, without status migrainosus (principal); I10 Essential (primary) hypertension; Z87.891 Personal history of nicotine dependence
CPT/HCPCS: J0595; J2550

== ENCOUNTER 2019-05-03 08:04 | Emergency (ER) | payer MEDICARE, BC ==
[2008-04-06 07:24] VITALS: BP 120/70
[~2019-05-03] VITALS: Ht 177.8 cm; Wt 79.5 kg
[2019-05-03 08:08] VITALS: BP 139/70; TEMP 97.3
[2019-05-03 08:50] VITALS: PULSE 66
== END 2019-05-03 08:50 | disposition home or self-care (01) ==
LOC: COL.ER 08:04
DX: G43.909 Migraine, unspecified, not intractable, without status migrainosus (principal); Z87.442 Personal history of urinary calculi; Z90.89 Acquired absence of other organs; Z87.891 Personal history of nicotine dependence
CPT/HCPCS: J2550

== ENCOUNTER 2019-05-06 09:05 | Emergency (ER) | payer MEDICARE, BC ==
[2008-04-06 07:24] VITALS: BP 120/70
[~2019-05-06] VITALS: Ht 177.8 cm; Wt 81.8 kg
[2019-05-06 09:17] VITALS: BP 134/77
[2019-05-06] MEDS ORDERED: DOXYCYCLINE HY100 MG PO (10:13)
[2019-05-06 10:20] VITALS: PULSE 84; TEMP 97
== END 2019-05-06 10:20 | disposition home or self-care (01) ==
LOC: COL.ER 09:05
DX: G43.909 Migraine, unspecified, not intractable, without status migrainosus (principal); I10 Essential (primary) hypertension; Z87.891 Personal history of nicotine dependence; Z90.89 Acquired absence of other organs; Z87.442 Personal history of urinary calculi
CPT/HCPCS: J0595; J2550

== ENCOUNTER 2019-05-15 08:59 | Emergency (ER) | payer MEDICARE, BC ==
[2008-04-06 07:24] VITALS: BP 120/70
[~2019-05-15] VITALS: Ht 175.3 cm; Wt 63.6 kg
[~2019-05-15 08:59] MED LIST changes: +DOXYCYCLINE HY100 MG PO
[2019-05-15 09:08] VITALS: BP 139/90; PULSE 82; TEMP 97.7
== END 2019-05-15 10:35 | disposition home or self-care (01) ==
LOC: COL.ER 08:59
DX: G43.909 Migraine, unspecified, not intractable, without status migrainosus (principal); Z87.442 Personal history of urinary calculi; Z90.49 Acquired absence of other specified parts of digestive tract; Z95.5 Presence of coronary angioplasty implant and graft; Z88.8 Allergy status to other drugs, medicaments and biological substances; Z87.891 Personal history of nicotine dependence
CPT/HCPCS: J0595; J2550

== ENCOUNTER 2019-05-19 09:23 | Emergency (ER) | payer MEDICARE, BC ==
[2008-04-06 07:24] VITALS: BP 120/70
[~2019-05-19] VITALS: Ht 175.3 cm; Wt 63.6 kg
[2019-05-19 09:26] VITALS: BP 152/79; TEMP 98
[2019-05-19 10:19] VITALS: PULSE 79
== END 2019-05-19 10:19 | disposition home or self-care (01) ==
LOC: COL.ER 09:23
DX: G43.909 Migraine, unspecified, not intractable, without status migrainosus (principal); I10 Essential (primary) hypertension; Z87.891 Personal history of nicotine dependence
CPT/HCPCS: J2550

== ENCOUNTER 2019-05-26 08:35 | Emergency (ER) | payer MEDICARE, BC ==
[2008-04-06 07:24] VITALS: BP 120/70
[~2019-05-26] VITALS: Ht 180.3 cm; Wt 63.6 kg
[2019-05-26 08:41] VITALS: BP 151/73; TEMP 97.8
[2019-05-26 09:28] VITALS: PULSE 46
== END 2019-05-26 09:58 | disposition home or self-care (01) ==
LOC: COL.ER 08:35
DX: R51 Headache (principal)
CPT/HCPCS: J0595; J2550

== ENCOUNTER 2019-05-31 13:09 | Emergency (ER) | payer MEDICARE, BC ==
[2008-04-06 07:24] VITALS: BP 120/70
[~2019-05-31] VITALS: Ht 180.3 cm; Wt 63.6 kg
[2019-05-31 13:14] VITALS: BP 126/72
[2019-05-31 13:57] VITALS: PULSE 67; TEMP 98.3
== END 2019-05-31 13:57 | disposition home or self-care (01) ==
LOC: COL.ER 13:09
DX: G43.909 Migraine, unspecified, not intractable, without status migrainosus (principal); K21.9 Gastro-esophageal reflux disease without esophagitis; Z88.5 Allergy status to narcotic agent; Z98.890 Other specified postprocedural states
CPT/HCPCS: J0595; J2550

== ENCOUNTER 2019-06-05 08:01 | Emergency (ER) | payer MEDICARE, BC ==
[2008-04-06 07:24] VITALS: BP 120/70
[~2019-06-05] VITALS: Ht 175.3 cm; Wt 61.5 kg
[2019-06-05 08:40] VITALS: BP 140/77; PULSE 82; TEMP 98.2
== END 2019-06-05 08:40 | disposition home or self-care (01) ==
LOC: COL.ER 08:01
DX: G43.909 Migraine, unspecified, not intractable, without status migrainosus (principal); I10 Essential (primary) hypertension; Z87.891 Personal history of nicotine dependence
CPT/HCPCS: J0595; J2550

== ENCOUNTER 2019-06-10 08:38 | Emergency (ER) | payer MEDICARE, BC ==
[2008-04-06 07:24] VITALS: BP 120/70
[~2019-06-10] VITALS: Ht 175.3 cm; Wt 63.6 kg
[2019-06-10 08:44] VITALS: BP 137/69; TEMP 98.5
[2019-06-10 09:34] VITALS: PULSE 83
== END 2019-06-10 09:35 | disposition home or self-care (01) ==
LOC: COL.ER 08:38
DX: G43.909 Migraine, unspecified, not intractable, without status migrainosus (principal); Z87.891 Personal history of nicotine dependence
CPT/HCPCS: J0595; J2550

== ENCOUNTER 2019-06-18 14:58 | Emergency (ER) | payer MEDICARE, BC ==
[2008-04-06 07:24] VITALS: BP 120/70
[~2019-06-18] VITALS: Ht 175.3 cm; Wt 63.6 kg
[2019-06-18 15:11] VITALS: BP 142/78
[2019-06-18 15:59] VITALS: PULSE 88; TEMP 97.6
== END 2019-06-18 15:59 | disposition home or self-care (01) ==
LOC: COL.ER 14:58
DX: G43.909 Migraine, unspecified, not intractable, without status migrainosus (principal)
CPT/HCPCS: J0595; J2550

== ENCOUNTER 2019-06-22 06:50 | Emergency (ER) | payer MEDICARE, BC ==
[2008-04-06 07:24] VITALS: BP 120/70
[~2019-06-22] VITALS: Ht 175.3 cm; Wt 63.6 kg
[2019-06-22 06:56] VITALS: BP 123/88
[2019-06-22 07:22] VITALS: PULSE 90; TEMP 97.6
== END 2019-06-22 07:22 | disposition home or self-care (01) ==
LOC: COL.ER 06:50
DX: R51 Headache (principal)
CPT/HCPCS: J0595; J2550

== ENCOUNTER 2019-06-25 08:32 | Emergency (ER) | payer MEDICARE, BC ==
[2008-04-06 07:24] VITALS: BP 120/70
[~2019-06-25] VITALS: Ht 175.3 cm; Wt 63.6 kg
[2019-06-25 08:33] VITALS: BP 136/79; PULSE 74; TEMP 97.6
== END 2019-06-25 09:17 | disposition home or self-care (01) ==
LOC: COL.ER 08:32
DX: G43.909 Migraine, unspecified, not intractable, without status migrainosus (principal); K21.9 Gastro-esophageal reflux disease without esophagitis; Z87.442 Personal history of urinary calculi; Z88.5 Allergy status to narcotic agent; Z98.890 Other specified postprocedural states
CPT/HCPCS: J0595; J2550

== ENCOUNTER 2019-06-27 06:39 | Emergency (ER) | payer MEDICARE, BC ==
[2008-04-06 07:24] VITALS: BP 120/70
[~2019-06-27] VITALS: Ht 175.3 cm; Wt 63.6 kg
[2019-06-27 06:44] VITALS: BP 129/85; PULSE 86; TEMP 98.3
== END 2019-06-27 07:55 | disposition home or self-care (01) ==
LOC: COL.ER 06:39
DX: R51 Headache (principal)
CPT/HCPCS: J0595; J2550

== ENCOUNTER 2019-06-29 08:17 | Emergency (ER) | payer MEDICARE, BC ==
[2008-04-06 07:24] VITALS: BP 120/70
[~2019-06-29] VITALS: Ht 175.3 cm; Wt 63.6 kg
[2019-06-29 08:19] VITALS: BP 146/63; TEMP 98.4
[2019-06-29 09:30] VITALS: PULSE 87
== END 2019-06-29 09:30 | disposition home or self-care (01) ==
LOC: COL.ER 08:17
DX: G43.909 Migraine, unspecified, not intractable, without status migrainosus (principal); Z90.89 Acquired absence of other organs; Z87.891 Personal history of nicotine dependence; Z87.442 Personal history of urinary calculi
CPT/HCPCS: J0595; J2550

== ENCOUNTER 2019-07-02 07:54 | Emergency (ER) | payer MEDICARE, BC ==
[2008-04-06 07:24] VITALS: BP 120/70
[~2019-07-02] VITALS: Ht 175.3 cm; Wt 63.6 kg
[2019-07-02 08:03] VITALS: BP 127/66; PULSE 83; TEMP 97.8
== END 2019-07-02 10:00 | disposition home or self-care (01) ==
LOC: COL.ER 07:54
DX: R51 Headache (principal)
CPT/HCPCS: J0595; J2550

== ENCOUNTER 2019-07-07 05:57 | Emergency (ER) | payer MEDICARE, BC ==
[2008-04-06 07:24] VITALS: BP 120/70
[~2019-07-07] VITALS: Ht 175.3 cm; Wt 63.6 kg
[2019-07-07 06:04] VITALS: BP 156/78; TEMP 98.4
[2019-07-07 07:05] VITALS: PULSE 73
== END 2019-07-07 07:05 | disposition home or self-care (01) ==
LOC: COL.ER 05:57
DX: G43.909 Migraine, unspecified, not intractable, without status migrainosus (principal); Z90.89 Acquired absence of other organs
CPT/HCPCS: J0595; J2550

== ENCOUNTER 2019-07-09 08:17 | Emergency (ER) | payer MEDICARE, BC ==
[2008-04-06 07:24] VITALS: BP 120/70
[~2019-07-09] VITALS: Ht 175.3 cm; Wt 63.6 kg
[2019-07-09 08:24] VITALS: BP 143/73
[2019-07-09 08:58] VITALS: PULSE 73; TEMP 97.5
== END 2019-07-09 08:58 | disposition home or self-care (01) ==
LOC: COL.ER 08:17
DX: G43.909 Migraine, unspecified, not intractable, without status migrainosus (principal); K21.9 Gastro-esophageal reflux disease without esophagitis; Z88.5 Allergy status to narcotic agent; Z87.442 Personal history of urinary calculi
CPT/HCPCS: J0595; J2550

== ENCOUNTER 2019-07-11 05:47 | Emergency (ER) | payer MEDICARE, BC ==
[2008-04-06 07:24] VITALS: BP 120/70
[~2019-07-11] VITALS: Ht 175.3 cm; Wt 63.6 kg
[2019-07-11 05:51] VITALS: BP 122/78; TEMP 98.4
[2019-07-11 06:45] VITALS: PULSE 89
== END 2019-07-11 06:40 | disposition home or self-care (01) ==
LOC: COL.ER 05:47
DX: G43.909 Migraine, unspecified, not intractable, without status migrainosus (principal)
CPT/HCPCS: J2550

== ENCOUNTER 2019-07-17 09:45 | Emergency (ER) | payer MEDICARE, BC ==
[2008-04-06 07:24] VITALS: BP 120/70
[~2019-07-17] VITALS: Ht 175.3 cm; Wt 63.5 kg
[2019-07-17 09:49] VITALS: BP 113/69; TEMP 97.6
[2019-07-17 10:45] VITALS: PULSE 72
== END 2019-07-17 10:45 | disposition home or self-care (01) ==
LOC: COL.ER 09:45
DX: G43.909 Migraine, unspecified, not intractable, without status migrainosus (principal); Z90.89 Acquired absence of other organs
CPT/HCPCS: J0595; J2550

== ENCOUNTER 2019-07-20 09:32 | Emergency (ER) | payer MEDICARE, BC ==
[2008-04-06 07:24] VITALS: BP 120/70
[~2019-07-20] VITALS: Ht 175.3 cm; Wt 63.6 kg
[2019-07-20 11:31] VITALS: BP 126/76; PULSE 82; TEMP 98.3
== END 2019-07-20 11:40 | disposition home or self-care (01) ==
LOC: COL.ER 09:32
DX: G43.909 Migraine, unspecified, not intractable, without status migrainosus (principal); K21.9 Gastro-esophageal reflux disease without esophagitis; Z87.442 Personal history of urinary calculi
CPT/HCPCS: J0595; J2550

== ENCOUNTER 2019-07-24 09:29 | Emergency (ER) | payer MEDICARE, BC ==
[2008-04-06 07:24] VITALS: BP 120/70
[~2019-07-24] VITALS: Ht 175.3 cm; Wt 62.1 kg
[2019-07-24] MEDS ORDERED: PHENERGAN 25 TA25 MG PO (09:40)
[2019-07-24 09:41] VITALS: BP 123/62; TEMP 97.6
[2019-07-24 10:02] VITALS: PULSE 83
== END 2019-07-24 10:02 | disposition home or self-care (01) ==
LOC: COL.ER 09:29
DX: G43.909 Migraine, unspecified, not intractable, without status migrainosus (principal)
CPT/HCPCS: J0595

== ENCOUNTER 2019-07-27 08:28 | Emergency (ER) | payer MEDICARE, BC ==
[2008-04-06 07:24] VITALS: BP 120/70
[2019-07-27 08:31] VITALS: BP 150/67; TEMP 97.8
[2019-07-27] MEDS ORDERED: EMGALITY120 MG/1 M SQ (08:59)
[2019-07-27 09:12] VITALS: PULSE 66
== END 2019-07-27 09:12 | disposition home or self-care (01) ==
LOC: COL.ER 08:28
DX: G43.909 Migraine, unspecified, not intractable, without status migrainosus (principal)
CPT/HCPCS: J0595; J2550

== ENCOUNTER 2019-08-01 03:56 | Emergency (ER) | payer MEDICARE, BC ==
[2008-04-06 07:24] VITALS: BP 120/70
[~2019-08-01] VITALS: Ht 175.3 cm; Wt 63.6 kg
[~2019-08-01 03:56] MED LIST changes: +EMGALITY120 MG/1 M SQ
[2019-08-01 04:03] VITALS: BP 138/71; TEMP 98.4
[2019-08-01 05:00] VITALS: PULSE 71
== END 2019-08-01 05:00 | disposition home or self-care (01) ==
LOC: COL.ER 03:56
DX: G43.909 Migraine, unspecified, not intractable, without status migrainosus (principal)
CPT/HCPCS: J0595; J2550

== ENCOUNTER 2019-08-03 09:01 | Emergency (ER) | payer MEDICARE, BC ==
[2008-04-06 07:24] VITALS: BP 120/70
[~2019-08-03] VITALS: Ht 175.3 cm; Wt 63.6 kg
[2019-08-03 09:12] VITALS: BP 156/74; TEMP 97.8
[2019-08-03 10:37] VITALS: PULSE 89
== END 2019-08-03 10:37 | disposition home or self-care (01) ==
LOC: COL.ER 09:01
DX: G43.909 Migraine, unspecified, not intractable, without status migrainosus (principal); K21.9 Gastro-esophageal reflux disease without esophagitis; Z98.890 Other specified postprocedural states
CPT/HCPCS: J0595; J2550

== ENCOUNTER 2019-08-06 06:28 | Emergency (ER) | payer MEDICARE, BC ==
[2008-04-06 07:24] VITALS: BP 120/70
[~2019-08-06] VITALS: Ht 175.3 cm; Wt 63.6 kg
[2019-08-06 06:35] VITALS: BP 155/89; TEMP 98
[2019-08-06 07:41] VITALS: PULSE 81
== END 2019-08-06 07:41 | disposition home or self-care (01) ==
LOC: COL.ER 06:28
DX: G43.909 Migraine, unspecified, not intractable, without status migrainosus (principal)
CPT/HCPCS: J0595; J2550

== ENCOUNTER 2019-08-09 15:32 | Emergency (ER) | payer MEDICARE, BC ==
[2008-04-06 07:24] VITALS: BP 120/70
[~2019-08-09] VITALS: Ht 175.3 cm; Wt 63.6 kg
[2019-08-09 15:37] VITALS: TEMP 97.8
[2019-08-09 16:11] VITALS: BP 108/74; PULSE 76
== END 2019-08-09 16:11 | disposition home or self-care (01) ==
LOC: COL.ER 15:32
DX: G43.909 Migraine, unspecified, not intractable, without status migrainosus (principal)
CPT/HCPCS: J0595; J2550

== ENCOUNTER 2019-08-12 02:13 | Emergency (ER) | payer MEDICARE, BC ==
[2008-04-06 07:24] VITALS: BP 120/70
[~2019-08-12] VITALS: Ht 175.3 cm; Wt 63.6 kg
[2019-08-12 02:21] VITALS: BP 147/72; TEMP 97.7
[2019-08-12 03:49] VITALS: PULSE 85
== END 2019-08-12 03:50 | disposition home or self-care (01) ==
LOC: COL.ER 02:13
DX: G43.909 Migraine, unspecified, not intractable, without status migrainosus (principal); I10 Essential (primary) hypertension; K21.9 Gastro-esophageal reflux disease without esophagitis; Z87.891 Personal history of nicotine dependence
CPT/HCPCS: J0595; J2550

== ENCOUNTER 2019-08-14 16:39 | Emergency (ER) | payer MEDICARE, BC ==
[2008-04-06 07:24] VITALS: BP 120/70
[~2019-08-14] VITALS: Ht 175.3 cm; Wt 63.6 kg
[2019-08-14 17:04] VITALS: BP 125/87; TEMP 98.5
[2019-08-14 17:44] VITALS: PULSE 64
== END 2019-08-14 17:45 | disposition home or self-care (01) ==
LOC: COL.ER 16:39
DX: G43.909 Migraine, unspecified, not intractable, without status migrainosus (principal)
CPT/HCPCS: J0595; J2550

== ENCOUNTER 2019-08-16 09:05 | Emergency (ER) | payer MEDICARE, BC ==
[2008-04-06 07:24] VITALS: BP 120/70
[~2019-08-16] VITALS: Ht 175.3 cm; Wt 63.6 kg
[2019-08-16 09:09] VITALS: BP 126/70
[2019-08-16 09:50] VITALS: PULSE 74; TEMP 97.9
== END 2019-08-16 09:50 | disposition home or self-care (01) ==
LOC: COL.ER 09:05
DX: G43.909 Migraine, unspecified, not intractable, without status migrainosus (principal); Z90.89 Acquired absence of other organs
CPT/HCPCS: J0595; J2550

== ENCOUNTER 2019-08-18 16:31 | Emergency (ER) | payer MEDICARE, BC ==
[2008-04-06 07:24] VITALS: BP 120/70
[~2019-08-18] VITALS: Ht 175.3 cm; Wt 63.6 kg
[2019-08-18 16:46] VITALS: BP 168/80; TEMP 98.3
[2019-08-18 18:21] VITALS: PULSE 77
== END 2019-08-18 18:21 | disposition home or self-care (01) ==
LOC: COL.ER 16:31
DX: G43.909 Migraine, unspecified, not intractable, without status migrainosus (principal); Z90.89 Acquired absence of other organs
CPT/HCPCS: J0595; J2550

== ENCOUNTER 2019-08-22 04:16 | Emergency (ER) | payer MEDICARE, BC ==
[2008-04-06 07:24] VITALS: BP 120/70
[~2019-08-22] VITALS: Ht 175.3 cm; Wt 63.6 kg
[2019-08-22 04:23] VITALS: BP 114/68; TEMP 98.9
[2019-08-22 06:30] VITALS: PULSE 89
== END 2019-08-22 06:30 | disposition home or self-care (01) ==
LOC: COL.ER 04:16
DX: G43.909 Migraine, unspecified, not intractable, without status migrainosus (principal); Z90.89 Acquired absence of other organs
CPT/HCPCS: J0595; J2550

== ENCOUNTER 2019-08-28 16:12 | Emergency (ER) | payer MEDICARE, BC ==
[2008-04-06 07:24] VITALS: BP 120/70
[~2019-08-28] VITALS: Ht 175.3 cm; Wt 63.6 kg
[2019-08-28 16:16] VITALS: BP 165/76; TEMP 98.9
[2019-08-28 17:00] VITALS: PULSE 72
== END 2019-08-28 17:00 | disposition home or self-care (01) ==
LOC: COL.ER 16:12
DX: G43.909 Migraine, unspecified, not intractable, without status migrainosus (principal); K21.9 Gastro-esophageal reflux disease without esophagitis; Z87.442 Personal history of urinary calculi; Z98.890 Other specified postprocedural states
CPT/HCPCS: J0595; J2550

== ENCOUNTER 2019-09-01 09:14 | Emergency (ER) | payer MEDICARE, BC ==
[2008-04-06 07:24] VITALS: BP 120/70
[~2019-09-01] VITALS: Ht 175.3 cm; Wt 63.6 kg
[2019-09-01 09:19] VITALS: BP 128/72; TEMP 97.9
[2019-09-01 10:44] VITALS: PULSE 76
== END 2019-09-01 10:45 | disposition home or self-care (01) ==
LOC: COL.ER 09:14
DX: G43.909 Migraine, unspecified, not intractable, without status migrainosus (principal)
CPT/HCPCS: J0595; J2550

== ENCOUNTER 2019-09-03 11:06 | Emergency (ER) | payer MEDICARE, BC ==
[2008-04-06 07:24] VITALS: BP 120/70
[~2019-09-03] VITALS: Ht 175.3 cm; Wt 63.6 kg
[2019-09-03 11:12] VITALS: BP 133/66; TEMP 99.3
[2019-09-03 11:43] VITALS: PULSE 69
== END 2019-09-03 11:43 | disposition home or self-care (01) ==
LOC: COL.ER 11:06
DX: G43.909 Migraine, unspecified, not intractable, without status migrainosus (principal); K21.9 Gastro-esophageal reflux disease without esophagitis; Z87.442 Personal history of urinary calculi; Z98.890 Other specified postprocedural states; Z87.39 Personal history of other diseases of the musculoskeletal system and connective tissue
CPT/HCPCS: J0595; J2550

== ENCOUNTER 2019-09-08 06:22 | Emergency (ER) | payer MEDICARE, BC ==
[2008-04-06 07:24] VITALS: BP 120/70
[~2019-09-08] VITALS: Ht 175.3 cm; Wt 63.6 kg
[2019-09-08 07:31] VITALS: BP 128/74; PULSE 66; TEMP 97.9
== END 2019-09-08 07:27 | disposition home or self-care (01) ==
LOC: COL.ER 06:22
DX: G43.909 Migraine, unspecified, not intractable, without status migrainosus (principal)
CPT/HCPCS: J0595; J2550

== ENCOUNTER 2019-09-11 16:21 | Emergency (ER) | payer MEDICARE, BC ==
[2008-04-06 07:24] VITALS: BP 120/70
[~2019-09-11] VITALS: Ht 175.3 cm; Wt 63.6 kg
[2019-09-11 16:24] VITALS: BP 116/72; TEMP 97.9
[2019-09-11 17:20] VITALS: PULSE 72
== END 2019-09-11 17:20 | disposition home or self-care (01) ==
LOC: COL.ER 16:21
DX: G43.909 Migraine, unspecified, not intractable, without status migrainosus (principal)
CPT/HCPCS: J0595; J2550

== ENCOUNTER 2019-09-14 14:13 | Emergency (ER) | payer MEDICARE, BC ==
[2008-04-06 07:24] VITALS: BP 120/70
[~2019-09-14] VITALS: Ht 175.3 cm; Wt 63.6 kg
[2019-09-14 14:34] VITALS: BP 162/79; TEMP 98.2
[2019-09-14 15:25] VITALS: PULSE 85
== END 2019-09-14 15:24 | disposition home or self-care (01) ==
LOC: COL.ER 14:13
DX: G43.909 Migraine, unspecified, not intractable, without status migrainosus (principal)
CPT/HCPCS: J0595; J2550

== ENCOUNTER 2019-09-19 13:38 | Emergency (ER) | payer MEDICARE, BC ==
[2008-04-06 07:24] VITALS: BP 120/70
[~2019-09-19] VITALS: Ht 175.3 cm; Wt 63.6 kg
[2019-09-19 14:02] VITALS: BP 148/84; TEMP 98.5
[2019-09-19] MEDS ORDERED: STADOL NASA25 MG/BOT NS (14:20)
[2019-09-19 16:00] VITALS: PULSE 81
== END 2019-09-19 16:00 | disposition home or self-care (01) ==
LOC: COL.ER 13:38
DX: G43.909 Migraine, unspecified, not intractable, without status migrainosus (principal); Z90.89 Acquired absence of other organs; Z88.5 Allergy status to narcotic agent
CPT/HCPCS: J0595; J2550

== ENCOUNTER 2019-09-21 16:03 | Emergency (ER) | payer MEDICARE, BC ==
[2008-04-06 07:24] VITALS: BP 120/70
[~2019-09-21] VITALS: Ht 175.3 cm; Wt 63.6 kg
[2019-09-21 16:07] VITALS: BP 150/69; TEMP 98
[2019-09-21 16:46] VITALS: PULSE 65
== END 2019-09-21 16:47 | disposition home or self-care (01) ==
LOC: COL.ER 16:03
DX: G43.909 Migraine, unspecified, not intractable, without status migrainosus (principal); Z90.89 Acquired absence of other organs
CPT/HCPCS: J0595; J2550

== ENCOUNTER 2019-09-25 16:14 | Emergency (ER) | payer MEDICARE, BC ==
[2008-04-06 07:24] VITALS: BP 120/70
[~2019-09-25] VITALS: Ht 175.3 cm; Wt 63.6 kg
[2019-09-25 16:28] VITALS: BP 159/65; TEMP 98.2
[2019-09-25 17:05] VITALS: PULSE 70
== END 2019-09-25 17:05 | disposition home or self-care (01) ==
LOC: COL.ER 16:14
DX: G43.909 Migraine, unspecified, not intractable, without status migrainosus (principal)
CPT/HCPCS: J0595; J2550

== ENCOUNTER 2019-09-28 13:57 | Emergency (ER) | payer MEDICARE, BC ==
[2008-04-06 07:24] VITALS: BP 120/70
[~2019-09-28] VITALS: Ht 175.3 cm; Wt 63.6 kg
[2019-09-28 14:10] VITALS: BP 130/71; TEMP 98.5
[2019-09-28 15:30] VITALS: PULSE 72
== END 2019-09-28 15:32 | disposition home or self-care (01) ==
LOC: COL.ER 13:57
DX: G43.909 Migraine, unspecified, not intractable, without status migrainosus (principal)
CPT/HCPCS: J0595; J2550

== ENCOUNTER 2019-09-30 08:37 | Emergency (ER) | payer MEDICARE, BC ==
[2008-04-06 07:24] VITALS: BP 120/70
[~2019-09-30] VITALS: Ht 175.3 cm; Wt 63.6 kg
[2019-09-30 08:45] VITALS: BP 139/83; TEMP 98
[2019-09-30 09:35] VITALS: PULSE 70
== END 2019-09-30 09:35 | disposition home or self-care (01) ==
LOC: COL.ER 08:37
DX: G43.909 Migraine, unspecified, not intractable, without status migrainosus (principal); Z87.891 Personal history of nicotine dependence
CPT/HCPCS: J0595; J2550

== ENCOUNTER 2019-10-01 16:58 | Emergency (ER) | payer MEDICARE, BC ==
[2008-04-06 07:24] VITALS: BP 120/70
[~2019-10-01] VITALS: Ht 175.3 cm; Wt 65.9 kg
[2019-10-01 17:08] VITALS: TEMP 98.3
[2019-10-01 18:11] VITALS: BP 144/69; PULSE 79
== END 2019-10-01 18:12 | disposition home or self-care (01) ==
LOC: COL.ER 16:58
DX: G43.909 Migraine, unspecified, not intractable, without status migrainosus (principal)
CPT/HCPCS: J0595; J2550

== ENCOUNTER 2019-10-03 15:03 | Emergency (ER) | payer MEDICARE, BC ==
[2008-04-06 07:24] VITALS: BP 120/70
[~2019-10-03] VITALS: Ht 175.3 cm; Wt 63.6 kg
[2019-10-03 15:36] VITALS: BP 160/76; TEMP 97.6
[2019-10-03 17:14] VITALS: PULSE 97
== END 2019-10-03 17:15 | disposition home or self-care (01) ==
LOC: COL.ER 15:03
DX: G43.909 Migraine, unspecified, not intractable, without status migrainosus (principal)
CPT/HCPCS: J0595; J2550

== ENCOUNTER 2019-10-05 15:44 | Emergency (ER) | payer MEDICARE, BC ==
[2008-04-06 07:24] VITALS: BP 120/70
[~2019-10-05] VITALS: Ht 175.3 cm; Wt 63.6 kg
[2019-10-05 15:51] VITALS: BP 131/76; TEMP 97.8
[2019-10-05 19:47] VITALS: PULSE 80
== END 2019-10-05 19:48 | disposition home or self-care (01) ==
LOC: COL.ER 15:44
DX: G43.909 Migraine, unspecified, not intractable, without status migrainosus (principal)
CPT/HCPCS: J0595; J2550

== ENCOUNTER 2019-10-09 15:38 | Emergency (ER) | payer MEDICARE, BC ==
[2008-04-06 07:24] VITALS: BP 120/70
[~2019-10-09] VITALS: Ht 175.3 cm; Wt 63.6 kg
[2019-10-09 15:53] VITALS: BP 140/81; TEMP 97.9
[2019-10-09] MEDS ORDERED: IMITREX 5MGNAS NS (15:58)
[2019-10-09 17:36] VITALS: PULSE 61
== END 2019-10-09 17:36 | disposition home or self-care (01) ==
LOC: COL.ER 15:38
DX: G43.909 Migraine, unspecified, not intractable, without status migrainosus (principal); Z87.891 Personal history of nicotine dependence
CPT/HCPCS: J0595; J2550

== ENCOUNTER 2019-10-17 15:04 | Emergency (ER) | payer MEDICARE, BC ==
[2008-04-06 07:24] VITALS: BP 120/70
[~2019-10-17] VITALS: Ht 175.3 cm; Wt 75.0 kg
[2019-10-17 15:20] VITALS: BP 122/64; TEMP 97.7
[2019-10-17 16:56] VITALS: PULSE 94
== END 2019-10-17 16:56 | disposition home or self-care (01) ==
LOC: COL.ER 15:04
DX: G43.909 Migraine, unspecified, not intractable, without status migrainosus (principal)
CPT/HCPCS: J0595; J2550

== ENCOUNTER 2019-10-20 09:01 | Emergency (ER) | payer BC, MEDICARE ==
[2008-04-06 07:24] VITALS: BP 120/70
[~2019-10-20] VITALS: Ht 175.3 cm; Wt 63.6 kg
[2019-10-20 09:04] VITALS: BP 134/71; TEMP 97.8
[2019-10-20 09:46] VITALS: PULSE 87
== END 2019-10-20 09:41 | disposition home or self-care (01) ==
LOC: COL.ER 09:01
DX: G43.909 Migraine, unspecified, not intractable, without status migrainosus (principal)
CPT/HCPCS: J0595; J2550

== ENCOUNTER 2019-10-24 04:19 | Emergency (ER) | payer MEDICARE, BC ==
[2008-04-06 07:24] VITALS: BP 120/70
[~2019-10-24] VITALS: Ht 175.3 cm; Wt 63.6 kg
[2019-10-24 04:40] VITALS: TEMP 97.5
[2019-10-24 05:59] VITALS: BP 127/79; PULSE 90
== END 2019-10-24 05:59 | disposition home or self-care (01) ==
LOC: COL.ER 04:19
DX: G43.909 Migraine, unspecified, not intractable, without status migrainosus (principal)
CPT/HCPCS: J0595; J2550

== ENCOUNTER 2019-10-27 09:38 | Emergency (ER) | payer MEDICARE, BC ==
[2008-04-06 07:24] VITALS: BP 120/70
[~2019-10-27] VITALS: Ht 175.3 cm; Wt 63.6 kg
[2019-10-27 09:47] VITALS: BP 122/74; TEMP 98.1
[2019-10-27 10:50] VITALS: PULSE 64
== END 2019-10-27 10:50 | disposition home or self-care (01) ==
LOC: COL.ER 09:38
DX: G43.909 Migraine, unspecified, not intractable, without status migrainosus (principal); Z88.5 Allergy status to narcotic agent; Z87.442 Personal history of urinary calculi
CPT/HCPCS: J0595; J2550

== ENCOUNTER 2019-10-31 06:45 | Emergency (ER) | payer MEDICARE, BC ==
[2008-04-06 07:24] VITALS: BP 120/70
[~2019-10-31] VITALS: Ht 175.3 cm; Wt 63.6 kg
[2019-10-31 06:52] VITALS: TEMP 97.8
[2019-10-31 07:17] VITALS: BP 132/81; PULSE 75
== END 2019-10-31 07:20 | disposition home or self-care (01) ==
LOC: COL.ER 06:45
DX: R51 Headache (principal)
CPT/HCPCS: J0595; J2550

== ENCOUNTER 2019-11-01 13:29 | Emergency (ER) | payer MEDICARE, BC ==
[2008-04-06 07:24] VITALS: BP 120/70
[~2019-11-01] VITALS: Ht 175.3 cm; Wt 63.6 kg
[2019-11-01 14:04] VITALS: PULSE 77; TEMP 97.7
[2019-11-01 19:08] VITALS: BP 140/70
== END 2019-11-01 19:09 | disposition home or self-care (01) ==
LOC: COL.ER 13:29
DX: G43.909 Migraine, unspecified, not intractable, without status migrainosus (principal); Z87.891 Personal history of nicotine dependence
CPT/HCPCS: J0595; J2550

== ENCOUNTER 2019-12-06 14:06 | Emergency (ER) | payer MEDICARE, BC ==
[2008-04-06 07:24] VITALS: BP 120/70
[~2019-12-06] VITALS: Ht 165.1 cm; Wt 63.6 kg
[2019-12-06 14:17] VITALS: BP 122/81; TEMP 97.3
[2019-12-06 15:18] VITALS: PULSE 93
== END 2019-12-06 15:15 | disposition home or self-care (01) ==
LOC: COL.ER 14:06
DX: G43.909 Migraine, unspecified, not intractable, without status migrainosus (principal)
CPT/HCPCS: J0595; J2550

== ENCOUNTER 2019-12-16 09:20 | Emergency (ER) | payer MEDICARE, BC ==
[2008-04-06 07:24] VITALS: BP 120/70
[~2019-12-16] VITALS: Ht 175.3 cm; Wt 63.6 kg
[2019-12-16 09:58] LABS: BASO % 0.4 % (0.0-2.0); GRAN # 6.5 (1.4-6.5); GRAN % 85.5 % (42.2-75.2); HEMOGLOBIN 14.6 g/dl (13.5-18.0); LYMPH # 0.8 (1.2-3.4); LYMPH % 9.9 % (20.0-51.0); MEAN CELL VOLUME 91 fl (80.0-100.0); MEAN CORPUSCULAR HEMOGLOBIN 31 pg (27.0-31.0); MEAN CORPUSCULAR HGB CONC 34 g/dl (33.0-37.0); MEAN PLATELET VOLUME 9.2 fl (7.4-10.4); MONO # 0.3 (0.1-0.6); MONO % 3.8 % (1.7-9.3); PLATELET COUNT 267 K/mm3 (130-400); RED BLOOD COUNT 4.71 M/mm3 (4.20-5.60); REDCELL DISTRIBUTION WIDTH-CV 13.3 % (11.5-14.5)
[2019-12-16 10:14] LABS: ALANINE AMINOTRANSFERASE 12 U/L (4-49); ALBUMIN 4.2 gm/dL (3.5-5.0); ALKALINE PHOSPHATASE 70 U/L (50-136); ANION GAP 11 mmol/L (7-16); AST,SGOT 26 U/L (15-37); BILIRUBIN,TOTAL 1.2 mg/dL (0.0-1.0); BLOOD UREA NITROGEN 17 mg/dL (9-20); C-REACTIVE PROTEIN 0.7 mg/dL (0.0-0.9); CALCIUM 9.8 mg/dL (8.4-10.2); CARBON DIOXIDE 27 mmol/L (22-30); CHLORIDE 100 mmol/L (98-107); CREATININE, serum 0.89 (0.66-1.25); GLUCOSE 94 mg/dL (74-106); POTASSIUM 4.5 mmol/L (3.4-5.0); SODIUM 137 mmol/L (137-145); TOTAL PROTEIN 7.9 gm/dL (6.4-8.2)
[2019-12-16 10:59] LABS: TROPONIN-I < 0.012 ng/mL (0.000-0.035)
[2019-12-16 11:39] VITALS: BP 146/84; PULSE 76; TEMP 98.2
[2019-12-16] MEDS ORDERED: PROAIR DIGIHAL90 MCG IH (12:05)
== END 2019-12-16 12:10 | disposition home or self-care (01) ==
LOC: COL.ER 09:20
PROVIDERS: Physician Assistant
DX: R06.00 Dyspnea, unspecified (principal); G43.909 Migraine, unspecified, not intractable, without status migrainosus; I10 Essential (primary) hypertension
CPT/HCPCS: J0595; J2550

== ENCOUNTER 2019-12-25 14:48 | Emergency (ER) | payer MEDICARE, BC ==
[2008-04-06 07:24] VITALS: BP 120/70
[~2019-12-25] VITALS: Ht 175.3 cm; Wt 63.6 kg
[~2019-12-25 14:48] MED LIST changes: +PROAIR DIGIHAL90 MCG IH
[2019-12-25 15:00] VITALS: BP 127/83; TEMP 97.3
[2019-12-25 15:25] VITALS: PULSE 78
== END 2019-12-25 15:25 | disposition home or self-care (01) ==
LOC: COL.ER 14:48
DX: G43.909 Migraine, unspecified, not intractable, without status migrainosus (principal)
CPT/HCPCS: J0595; J2550

== ENCOUNTER 2019-12-29 15:47 | Emergency (ER) | payer MEDICARE, BC ==
[2008-04-06 07:24] VITALS: BP 120/70
[~2019-12-29] VITALS: Ht 175.3 cm; Wt 63.6 kg
[2019-12-29 15:52] VITALS: BP 139/83; TEMP 98.7
[2019-12-29 16:26] VITALS: PULSE 75
== END 2019-12-29 16:25 | disposition home or self-care (01) ==
LOC: COL.ER 15:47
DX: G43.909 Migraine, unspecified, not intractable, without status migrainosus (principal); K21.9 Gastro-esophageal reflux disease without esophagitis; Z87.442 Personal history of urinary calculi
CPT/HCPCS: J0595; J2550

== ENCOUNTER 2020-01-01 09:09 | Emergency (ER) | payer MEDICARE, BC ==
[2008-04-06 07:24] VITALS: BP 120/70
[~2020-01-01] VITALS: Ht 175.3 cm; Wt 63.6 kg
[2020-01-01 09:20] VITALS: BP 118/78; PULSE 87; TEMP 98.1
== END 2020-01-01 10:35 | disposition home or self-care (01) ==
LOC: COL.ER 09:09
DX: G43.909 Migraine, unspecified, not intractable, without status migrainosus (principal); K21.9 Gastro-esophageal reflux disease without esophagitis; Z88.5 Allergy status to narcotic agent; Z87.442 Personal history of urinary calculi
CPT/HCPCS: J0595; J2550

== ENCOUNTER 2020-01-04 08:41 | Emergency (ER) | payer MEDICARE, BC ==
[2008-04-06 07:24] VITALS: BP 120/70
[~2020-01-04] VITALS: Ht 175.3 cm; Wt 63.6 kg
[2020-01-04 08:43] VITALS: BP 139/69; TEMP 98.3
[2020-01-04 08:57] VITALS: PULSE 89
== END 2020-01-04 08:57 | disposition home or self-care (01) ==
LOC: COL.ER 08:41
DX: G43.909 Migraine, unspecified, not intractable, without status migrainosus (principal)
CPT/HCPCS: J0595; J2550

== ENCOUNTER 2020-01-07 14:04 | Emergency (ER) | payer MEDICARE, BC ==
[2008-04-06 07:24] VITALS: BP 120/70
[~2020-01-07] VITALS: Ht 175.3 cm; Wt 63.6 kg
[2020-01-07 14:17] VITALS: BP 115/68; PULSE 108; TEMP 99
== END 2020-01-07 15:18 | disposition home or self-care (01) ==
LOC: COL.ER 14:04
DX: G43.909 Migraine, unspecified, not intractable, without status migrainosus (principal)
CPT/HCPCS: J0595; J2550

== ENCOUNTER 2020-01-10 12:37 | Emergency (ER) | payer MEDICARE, BC ==
[2008-04-06 07:24] VITALS: BP 120/70
[~2020-01-10] VITALS: Ht 175.3 cm; Wt 63.6 kg
[2020-01-10 12:54] VITALS: BP 143/76; TEMP 98.8
[2020-01-10 13:32] VITALS: PULSE 85
[2020-01-12] MEDS ORDERED: VITAMIN B11000 MCG/M IM (14:19)
[2020-01-12] MEDS ORDERED: VITAMIN D31000 IU PO (14:20)
== END 2020-01-10 13:32 | disposition home or self-care (01) ==
LOC: COL.ER 12:37
DX: R51 Headache (principal)
CPT/HCPCS: J0595; J2550

== ENCOUNTER 2020-01-15 15:17 | Emergency (ER) | payer MEDICARE, BC ==
[2008-04-06 07:24] VITALS: BP 120/70
[~2020-01-15] VITALS: Ht 175.3 cm; Wt 63.6 kg
[~2020-01-15 15:17] MED LIST changes: +VITAMIN B11000 MCG/M IM; +VITAMIN D31000 IU PO
[2020-01-15 15:20] VITALS: BP 124/81; PULSE 86; TEMP 98.4
== END 2020-01-15 15:50 | disposition home or self-care (01) ==
LOC: COL.ER 15:17
DX: G43.909 Migraine, unspecified, not intractable, without status migrainosus (principal); K21.9 Gastro-esophageal reflux disease without esophagitis; Z90.49 Acquired absence of other specified parts of digestive tract
CPT/HCPCS: J0595; J2550

== ENCOUNTER 2020-01-18 09:56 | Emergency (ER) | payer MEDICARE, BC ==
[2008-04-06 07:24] VITALS: BP 120/70
[~2020-01-18] VITALS: Ht 175.3 cm; Wt 63.6 kg
[2020-01-18 10:02] VITALS: TEMP 98.7
[2020-01-18 10:49] VITALS: BP 121/56; PULSE 84
== END 2020-01-18 10:40 | disposition home or self-care (01) ==
LOC: COL.ER 09:56
DX: G43.909 Migraine, unspecified, not intractable, without status migrainosus (principal); J44.9 Chronic obstructive pulmonary disease, unspecified
CPT/HCPCS: J0595; J2550

== ENCOUNTER 2020-01-22 07:22 | Emergency (ER) | payer MEDICARE, BC ==
[2008-04-06 07:24] VITALS: BP 120/70
[~2020-01-22] VITALS: Ht 175.3 cm; Wt 63.6 kg
[2020-01-22 07:31] VITALS: TEMP 97
[2020-01-22 09:01] VITALS: BP 144/80; PULSE 75
== END 2020-01-22 09:06 | disposition home or self-care (01) ==
LOC: COL.ER 07:22
DX: G43.909 Migraine, unspecified, not intractable, without status migrainosus (principal)
CPT/HCPCS: J0595; J0780; J1100

== ENCOUNTER 2020-01-29 11:56 | Emergency (ER) | payer MEDICARE, BC ==
[2008-04-06 07:24] VITALS: BP 120/70
[~2020-01-29] VITALS: Wt 63.6 kg
[2020-01-29 12:00] VITALS: BP 130/84; PULSE 96; TEMP 97.6
== END 2020-01-29 12:16 | disposition home or self-care (01) ==
LOC: COL.ER 11:56
DX: G43.909 Migraine, unspecified, not intractable, without status migrainosus (principal); Z87.891 Personal history of nicotine dependence
CPT/HCPCS: J0595; J2550

== ENCOUNTER 2020-01-31 14:55 | Outpatient (CLI) | payer MEDICARE, BC ==
[2008-04-06 07:24] VITALS: BP 120/70
[~2020-01-31] VITALS: Ht 175.3 cm; Wt 58.8 kg
[2020-01-31 16:13] VITALS: BP 119/78; PULSE 66; TEMP 97.4
== END 2020-01-31 16:18 | disposition home or self-care (01) ==
LOC: EUO 14:55
DX: G43.909 Migraine, unspecified, not intractable, without status migrainosus (principal)
CPT/HCPCS: J0595; J2550

== ENCOUNTER 2020-02-03 08:44 | Emergency (ER) | payer MEDICARE, BC ==
[2008-04-06 07:24] VITALS: BP 120/70
[~2020-02-03] VITALS: Ht 175.3 cm; Wt 63.6 kg
[2020-02-03 08:47] VITALS: BP 133/82; TEMP 97.5
[2020-02-03 09:10] VITALS: PULSE 90
== END 2020-02-03 09:13 | disposition home or self-care (01) ==
LOC: COL.ER 08:44
DX: G43.909 Migraine, unspecified, not intractable, without status migrainosus (principal); Z90.49 Acquired absence of other specified parts of digestive tract
CPT/HCPCS: J0595; J2550

== ENCOUNTER 2020-02-07 11:45 | Emergency (ER) | payer MEDICARE, BC ==
[2008-04-06 07:24] VITALS: BP 120/70
[~2020-02-07] VITALS: Ht 175.3 cm; Wt 63.6 kg
[2020-02-07 11:57] VITALS: BP 133/87; TEMP 97.9
[2020-02-07] MEDS ORDERED: STADOL NASA25 MG/BOT NS (12:45)
[2020-02-07 13:39] VITALS: PULSE 99
== END 2020-02-07 13:39 | disposition home or self-care (01) ==
LOC: COL.ER 11:45
DX: G43.909 Migraine, unspecified, not intractable, without status migrainosus (principal); Z87.891 Personal history of nicotine dependence; Z90.49 Acquired absence of other specified parts of digestive tract; Z87.442 Personal history of urinary calculi; Z98.890 Other specified postprocedural states
CPT/HCPCS: J0595; J2550

== ENCOUNTER 2020-02-10 14:16 | Emergency (ER) | payer MEDICARE, BC ==
[2008-04-06 07:24] VITALS: BP 120/70
[~2020-02-10] VITALS: Ht 175.3 cm; Wt 63.6 kg
[2020-02-10 14:32] VITALS: TEMP 97.5
[2020-02-10 14:58] VITALS: BP 121/71; PULSE 91
== END 2020-02-10 15:05 | disposition home or self-care (01) ==
LOC: COL.ER 14:16
DX: G43.909 Migraine, unspecified, not intractable, without status migrainosus (principal); Z88.6 Allergy status to analgesic agent; Z88.8 Allergy status to other drugs, medicaments and biological substances
CPT/HCPCS: J0595; J2550

== ENCOUNTER 2020-02-13 06:38 | Emergency (ER) | payer MEDICARE, BC ==
[2008-04-06 07:24] VITALS: BP 120/70
[~2020-02-13] VITALS: Ht 175.3 cm; Wt 63.6 kg
[2020-02-13 07:31] VITALS: BP 132/81; PULSE 91; TEMP 97
== END 2020-02-13 07:39 | disposition home or self-care (01) ==
LOC: COL.ER 06:38
DX: R51 Headache (principal)
CPT/HCPCS: J0595; J2550

== ENCOUNTER 2020-02-21 09:50 | Emergency (ER) | payer MEDICARE, BC ==
[2008-04-06 07:24] VITALS: BP 120/70
[~2020-02-21] VITALS: Ht 175.3 cm; Wt 63.6 kg
[2020-02-21 09:57] VITALS: BP 155/78; TEMP 97.6
[2020-02-21 11:11] VITALS: PULSE 93
== END 2020-02-21 11:11 | disposition home or self-care (01) ==
LOC: COL.ER 09:50
DX: G43.909 Migraine, unspecified, not intractable, without status migrainosus (principal); Z87.891 Personal history of nicotine dependence; Z95.9 Presence of cardiac and vascular implant and graft, unspecified
CPT/HCPCS: J0595; J2550

== ENCOUNTER 2020-02-26 16:07 | Emergency (ER) | payer MEDICARE, BC ==
[2008-04-06 07:24] VITALS: BP 120/70
[~2020-02-26] VITALS: Ht 175.3 cm; Wt 63.6 kg
[2020-02-26 16:22] VITALS: BP 155/106; TEMP 97.9
[2020-02-26 17:04] VITALS: PULSE 90
== END 2020-02-26 17:04 | disposition home or self-care (01) ==
LOC: COL.ER 16:07
DX: G43.909 Migraine, unspecified, not intractable, without status migrainosus (principal); Z90.49 Acquired absence of other specified parts of digestive tract
CPT/HCPCS: J0595; J2550

== ENCOUNTER 2020-03-06 08:51 | Emergency (ER) | payer MEDICARE, BC ==
[2008-04-06 07:24] VITALS: BP 120/70
[~2020-03-06] VITALS: Ht 175.3 cm; Wt 63.6 kg
[2020-03-06 08:56] VITALS: BP 115/67; PULSE 86; TEMP 97.7
== END 2020-03-06 10:00 | disposition home or self-care (01) ==
LOC: COL.ER 08:51
DX: G43.909 Migraine, unspecified, not intractable, without status migrainosus (principal); Z90.49 Acquired absence of other specified parts of digestive tract
CPT/HCPCS: J0595; J2550

== ENCOUNTER 2020-03-12 12:32 | Emergency (ER) | payer MEDICARE, BC ==
[2008-04-06 07:24] VITALS: BP 120/70
[~2020-03-12] VITALS: Ht 165.1 cm; Wt 47.3 kg
[2020-03-12 12:45] VITALS: BP 147/96; PULSE 85; TEMP 97.8
== END 2020-03-12 13:49 | disposition home or self-care (01) ==
LOC: COL.ER 12:32
DX: G43.909 Migraine, unspecified, not intractable, without status migrainosus (principal); J44.9 Chronic obstructive pulmonary disease, unspecified; Z88.6 Allergy status to analgesic agent; Z87.891 Personal history of nicotine dependence
CPT/HCPCS: J0595; J2550

== ENCOUNTER 2020-03-17 16:38 | Emergency (ER) | payer MEDICARE, BC ==
[2008-04-06 07:24] VITALS: BP 120/70
[~2020-03-17] VITALS: Ht 165.1 cm; Wt 63.6 kg
[2020-03-17 16:48] VITALS: BP 120/85; TEMP 98.9
[2020-03-17 17:44] VITALS: PULSE 101
== END 2020-03-17 17:44 | disposition home or self-care (01) ==
LOC: COL.ER 16:38
DX: G43.909 Migraine, unspecified, not intractable, without status migrainosus (principal); I10 Essential (primary) hypertension; J45.909 Unspecified asthma, uncomplicated; K21.9 Gastro-esophageal reflux disease without esophagitis; Z87.891 Personal history of nicotine dependence
CPT/HCPCS: J0595; J2550

== ENCOUNTER 2020-03-23 08:31 | Emergency (ER) | payer MEDICARE, BC ==
[2008-04-06 07:24] VITALS: BP 120/70
[2020-03-23 08:35] VITALS: BP 132/89; TEMP 97.8
[2020-03-23 09:29] LABS: BASO # 0.1 (0.0-0.2); BASO % 0.6 % (0.0-2.0); EOS % 0.2 % (0-4.0); GRAN # 7.2 (1.4-6.5); GRAN % 83.8 % (42.2-75.2); HEMATOCRIT 44.5 % (42.0-52.0); HEMOGLOBIN 15.3 g/dl (13.5-18.0); LYMPH # 0.9 (1.2-3.4); MEAN CELL VOLUME 92 fl (80.0-100.0); MEAN CORPUSCULAR HEMOGLOBIN 32 pg (27.0-31.0); MEAN CORPUSCULAR HGB CONC 34 g/dl (33.0-37.0); MEAN PLATELET VOLUME 9.7 fl (7.4-10.4); MONO # 0.5 (0.1-0.6); MONO % 5.2 % (1.7-9.3); PLATELET COUNT 279 K/mm3 (130-400); RED BLOOD COUNT 4.85 M/mm3 (4.20-5.60); REDCELL DISTRIBUTION WIDTH-CV 12.9 % (11.5-14.5)
[2020-03-23 09:38] LABS: PROTHROMBIN TIME 11.1 SECONDS (9.7-12.8)
[2020-03-23 09:45] LABS: ALANINE AMINOTRANSFERASE 10 U/L (4-49); ALBUMIN 4.2 gm/dL (3.5-5.0); ALKALINE PHOSPHATASE 73 U/L (50-136); ANION GAP 12 mmol/L (7-16); AST,SGOT 22 U/L (15-37); BLOOD UREA NITROGEN 18 mg/dL (9-20); CALCIUM 9.5 mg/dL (8.4-10.2); CARBON DIOXIDE 29 mmol/L (22-30); CHLORIDE 98 mmol/L (98-107); GLUCOSE 115 mg/dL (74-106); POTASSIUM 4.1 mmol/L (3.4-5.0); SODIUM 139 mmol/L (137-145); TOTAL PROTEIN 7.9 gm/dL (6.4-8.2)
[2020-03-23 10:19] LABS: TROPONIN-I < 0.012 ng/mL (0.000-0.035)
[2020-03-23] MEDS ORDERED: VENTOLIN0.09 MG IH (11:28)
[2020-03-23 12:05] VITALS: PULSE 91
== END 2020-03-23 11:50 | disposition home or self-care (01) ==
LOC: COL.ER 08:31
PROVIDERS: Emergency Medicine
DX: R06.02 Shortness of breath (principal); R06.00 Dyspnea, unspecified; Z87.09 Personal history of other diseases of the respiratory system
CPT/HCPCS: J0595; J2550; J2930; J7030

== ENCOUNTER 2020-04-01 14:39 | Emergency (ER) | payer MEDICARE, BC ==
[2008-04-06 07:24] VITALS: BP 120/70
[~2020-04-01] VITALS: Ht 175.3 cm; Wt 63.6 kg
[~2020-04-01 14:39] MED LIST changes: +VENTOLIN0.09 MG IH
[2020-04-01 14:43] VITALS: TEMP 97.8
[2020-04-01 15:41] VITALS: BP 116/67; PULSE 90
[2020-04-03] MEDS ORDERED: PREDNISONE20 MG PO (13:46)
== END 2020-04-01 15:45 | disposition home or self-care (01) ==
LOC: COL.ER 14:39
DX: G43.909 Migraine, unspecified, not intractable, without status migrainosus (principal); I10 Essential (primary) hypertension; J44.9 Chronic obstructive pulmonary disease, unspecified; K21.9 Gastro-esophageal reflux disease without esophagitis; Z87.891 Personal history of nicotine dependence
CPT/HCPCS: J0595; J2550

== ENCOUNTER 2020-04-04 13:19 | Emergency (ER) | payer MEDICARE, BC ==
[2008-04-06 07:24] VITALS: BP 120/70
[~2020-04-04] VITALS: Ht 175.3 cm; Wt 63.6 kg
[2020-04-04 13:26] VITALS: TEMP 98.6
[2020-04-04 15:20] VITALS: BP 108/68; PULSE 104
== END 2020-04-04 15:20 | disposition home or self-care (01) ==
LOC: COL.ER 13:19
DX: R06.00 Dyspnea, unspecified (principal); J45.909 Unspecified asthma, uncomplicated; G43.909 Migraine, unspecified, not intractable, without status migrainosus; Z88.6 Allergy status to analgesic agent; Z79.52 Long term (current) use of systemic steroids; Z87.442 Personal history of urinary calculi

== ENCOUNTER 2020-04-06 11:39 | Emergency (ER) | payer MEDICARE, BC ==
[2008-04-06 07:24] VITALS: BP 120/70
[~2020-04-06] VITALS: Ht 175.3 cm; Wt 47.7 kg
[2020-04-06 11:52] VITALS: TEMP 97.6
[2020-04-06 13:20] LABS: HEMATOCRIT 44.1 % (42.0-52.0); MEAN CELL VOLUME 92 fl (80.0-100.0); MEAN CORPUSCULAR HEMOGLOBIN 31 pg (27.0-31.0); MEAN CORPUSCULAR HGB CONC 34 g/dl (33.0-37.0); MEAN PLATELET VOLUME 10.5 fl (7.4-10.4); PLATELET COUNT 367 K/mm3 (130-400); RED BLOOD COUNT 4.78 M/mm3 (4.20-5.60); REDCELL DISTRIBUTION WIDTH-CV 12.8 % (11.5-14.5)
[2020-04-06 13:24] LABS: ALANINE AMINOTRANSFERASE 15 U/L (4-49); ALBUMIN 4.1 gm/dL (3.5-5.0); ALKALINE PHOSPHATASE 75 U/L (50-136); ANION GAP 7 mmol/L (7-16); AST,SGOT 24 U/L (15-37); BILIRUBIN,TOTAL 0.7 mg/dL (0.0-1.0); BLOOD UREA NITROGEN 17 mg/dL (9-20); CALCIUM 9.6 mg/dL (8.4-10.2); CARBON DIOXIDE 32 mmol/L (22-30); CHLORIDE 98 mmol/L (98-107); CREATININE, serum 0.84 (0.66-1.25); GLUCOSE 119 mg/dL (74-106); MAGNESIUM 2.5 mg/dL (1.6-2.3); SODIUM 136 mmol/L (137-145)
[2020-04-06 13:35] LABS: TROPONIN-I < 0.012 ng/mL (0.000-0.035)
[2020-04-06 13:39] LABS: BAND 2 % (0-10); LYMPHOCYTE 6 % (20.0-51.0); NEUTROPHILS 91 % (42.0-75.2); PLATELET ESTIMATE NORMAL (NORMAL)
[2020-04-06 13:49] VITALS: BP 138/106; PULSE 72
== END 2020-04-06 14:09 | disposition home or self-care (01) ==
LOC: COL.ER 11:39
PROVIDERS: Physician Assistant
DX: R06.00 Dyspnea, unspecified (principal); J45.909 Unspecified asthma, uncomplicated; Z95.5 Presence of coronary angioplasty implant and graft
CPT/HCPCS: J0595; J2550

== ENCOUNTER 2020-04-09 07:30 | Emergency (ER) | payer MEDICARE, BC ==
[2008-04-06 07:24] VITALS: BP 120/70
[~2020-04-09] VITALS: Ht 175.3 cm; Wt 63.6 kg
[2020-04-09 07:36] VITALS: BP 118/81; TEMP 98.2
[2020-04-09 08:50] VITALS: PULSE 111
[2020-04-11] MEDS ORDERED: 00186-0370-20 IH (14:22)
[2020-04-11] MEDS ORDERED: FLOVENT 220MCG7.9 GM IH (14:22)
== END 2020-04-09 08:50 | disposition home or self-care (01) ==
LOC: COL.ER 07:30
DX: G43.909 Migraine, unspecified, not intractable, without status migrainosus (principal); J45.909 Unspecified asthma, uncomplicated; G89.29 Other chronic pain; Z88.6 Allergy status to analgesic agent; Z87.442 Personal history of urinary calculi; Z90.49 Acquired absence of other specified parts of digestive tract; Z95.9 Presence of cardiac and vascular implant and graft, unspecified; Z87.891 Personal history of nicotine dependence
CPT/HCPCS: J0595; J2550

== ENCOUNTER 2020-04-15 06:48 | Emergency (ER) | payer MEDICARE, BC ==
[2008-04-06 07:24] VITALS: BP 120/70
[~2020-04-15] VITALS: Ht 175.3 cm; Wt 63.6 kg
[~2020-04-15 06:48] MED LIST changes: +00186-0370-20 IH; +FLOVENT 220MCG7.9 GM IH
[2020-04-15 07:05] VITALS: BP 124/73; TEMP 98.4
[2020-04-15 07:47] VITALS: PULSE 95
== END 2020-04-15 07:47 | disposition home or self-care (01) ==
LOC: COL.ER 06:48
DX: R51 Headache (principal); J45.909 Unspecified asthma, uncomplicated; Z86.69 Personal history of other diseases of the nervous system and sense organs; Z88.6 Allergy status to analgesic agent
CPT/HCPCS: J0595; J2550

== ENCOUNTER 2020-04-16 10:28 | Emergency (ER) | payer MEDICARE, BC ==
[2008-04-06 07:24] VITALS: BP 120/70
[~2020-04-16] VITALS: Ht 175.3 cm; Wt 63.6 kg
[2020-04-16 10:33] VITALS: TEMP 98.8
[2020-04-16 12:13] VITALS: BP 121/90; PULSE 96
== END 2020-04-16 12:13 | disposition home or self-care (01) ==
LOC: COL.ER 10:28
DX: G43.909 Migraine, unspecified, not intractable, without status migrainosus (principal); J45.909 Unspecified asthma, uncomplicated; Z88.6 Allergy status to analgesic agent
CPT/HCPCS: J0595; J2550

== ENCOUNTER 2020-04-20 12:33 | Emergency (ER) | payer MEDICARE, BC ==
[2008-04-06 07:24] VITALS: BP 120/70
[~2020-04-20] VITALS: Ht 175.3 cm; Wt 63.6 kg
[2020-04-20 12:57] VITALS: BP 109/69; TEMP 98.4
[2020-04-20 13:43] VITALS: PULSE 92
== END 2020-04-20 13:33 | disposition home or self-care (01) ==
LOC: COL.ER 12:33
DX: G43.909 Migraine, unspecified, not intractable, without status migrainosus (principal); R06.00 Dyspnea, unspecified; Z88.6 Allergy status to analgesic agent
CPT/HCPCS: J0595; J2550

== ENCOUNTER 2020-04-24 07:31 | Emergency (ER) | payer MEDICARE, BC ==
[2008-04-06 07:24] VITALS: BP 120/70
[~2020-04-24] VITALS: Ht 175.3 cm; Wt 61.4 kg
[2020-04-24 07:36] VITALS: BP 114/66; TEMP 97.2
[2020-04-24 08:01] VITALS: PULSE 110
[2020-04-25] MEDS ORDERED: PREDNISONE20 MG PO (15:05)
== END 2020-04-24 08:01 | disposition home or self-care (01) ==
LOC: COL.ER 07:31
DX: G43.909 Migraine, unspecified, not intractable, without status migrainosus (principal); J44.9 Chronic obstructive pulmonary disease, unspecified
CPT/HCPCS: J0595; J2550

== ENCOUNTER 2020-04-25 13:23 | Emergency (ER) | payer MEDICARE, BC ==
[2008-04-06 07:24] VITALS: BP 120/70
[~2020-04-25] VITALS: Ht 175.3 cm; Wt 65.9 kg
[2020-04-25 14:12] VITALS: BP 119/84; TEMP 98.3
[2020-04-25] MEDS ORDERED: PREDNISONE20 MG PO (15:05)
[2020-04-25 15:39] VITALS: PULSE 100
== END 2020-04-25 15:48 | disposition home or self-care (01) ==
LOC: COL.ER 13:23
DX: G43.909 Migraine, unspecified, not intractable, without status migrainosus (principal); J44.9 Chronic obstructive pulmonary disease, unspecified; Z87.891 Personal history of nicotine dependence
CPT/HCPCS: J0595; J2550

== ENCOUNTER 2020-04-28 06:32 | Emergency (ER) | payer MEDICARE, BC ==
[2008-04-06 07:24] VITALS: BP 120/70
[~2020-04-28] VITALS: Ht 175.3 cm; Wt 61.4 kg
[2020-04-28 06:48] VITALS: BP 117/73; TEMP 98.5
[2020-04-28] MEDS ORDERED: IMITREX 5MGNAS NAS (06:51)
[2020-04-28 07:50] VITALS: PULSE 74
--- NOTE | 2020-04-28 14:40 | NUR ---
Reed Man received a consult for patient for multiple visits to the ED. Patient has been in on 04/04/20, 04/06/20, 04/09/20, 04/11/20, 04/15/20, 04/16/20, 04/20/20, 04/24/20, 04/25/20, 04/28/20. ED Physician reports that patient presents with migraines and gets a shot. NELLA contacted Mindi, Reed Man at [facility] who advised patient sees Dr. Garrison and doesn't have an appointment scheduled until August but will follow up to see if patient could be seen sooner than that. NELLA provided ED visit dates to Mindi. NELLA followed up with patient who states he lives at home with his , Annie. Patient has Advance Directives in EMR. Patient is agreeable to see his primary care physician sooner than August and NELLA advised [facility] would contact him to schedule an appointment. Patient states he also has a botox injection scheduled in a couple weeks which should help. NELLA will continue to follow as needed.
== END 2020-04-28 07:50 | disposition home or self-care (01) ==
LOC: COL.ER 06:32
DX: G43.909 Migraine, unspecified, not intractable, without status migrainosus (principal); J44.9 Chronic obstructive pulmonary disease, unspecified; Z87.891 Personal history of nicotine dependence
CPT/HCPCS: J0595; J2550

== ENCOUNTER 2020-05-02 12:18 | Emergency (ER) | payer MEDICARE, BC ==
[2008-04-06 07:24] VITALS: BP 120/70
[~2020-05-02] VITALS: Ht 175.3 cm; Wt 56.8 kg
[~2020-05-02 12:18] MED LIST changes: +IMITREX 5MGNAS NAS
[2020-05-02 12:32] VITALS: TEMP 98.7
[2020-05-02 14:09] VITALS: BP 125/80; PULSE 95
== END 2020-05-02 14:11 | disposition home or self-care (01) ==
LOC: COL.ER 12:18
DX: K59.00 Constipation, unspecified (principal); G43.909 Migraine, unspecified, not intractable, without status migrainosus; K21.9 Gastro-esophageal reflux disease without esophagitis; Z87.442 Personal history of urinary calculi; Z79.52 Long term (current) use of systemic steroids
CPT/HCPCS: J0595; J2550

== ENCOUNTER 2020-05-05 07:50 | Emergency (ER) | payer MEDICARE, BC ==
[2008-04-06 07:24] VITALS: BP 120/70
[~2020-05-05] VITALS: Ht 175.3 cm; Wt 63.6 kg
[2020-05-05 07:54] VITALS: TEMP 98.5
[2020-05-05] MEDS ORDERED: GOLYTELY SOLU4000 ML PO (11:06)
[2020-05-05 11:18] VITALS: BP 122/96; PULSE 72
== END 2020-05-05 11:22 | disposition home or self-care (01) ==
LOC: COL.ER 07:50
DX: K59.00 Constipation, unspecified (principal); J45.909 Unspecified asthma, uncomplicated; Z98.61 Coronary angioplasty status; Z88.6 Allergy status to analgesic agent

== ENCOUNTER 2020-05-07 13:06 | Observation (INO) | payer MEDICARE, BC ==
[~2020-05-07] VITALS: Ht 175.3 cm; Wt 49.4 kg
[~2020-05-07 13:06] MED LIST changes: +GOLYTELY SOLU4000 ML PO
[2020-05-07 17:06] LABS: BASO % 0.1 % (0.0-2.0); EOS % 0.1 % (0-4.0); GRAN # 8.6 (1.4-6.5); GRAN % 88.2 % (42.2-75.2); HEMATOCRIT 43.3 % (42.0-52.0); HEMOGLOBIN 14.3 g/dl (13.5-18.0); LYMPH # 0.7 (1.2-3.4); MEAN CELL VOLUME 93 fl (80.0-100.0); MEAN CORPUSCULAR HEMOGLOBIN 31 pg (27.0-31.0); MEAN CORPUSCULAR HGB CONC 33 g/dl (33.0-37.0); MEAN PLATELET VOLUME 9.4 fl (7.4-10.4); MONO # 0.4 (0.1-0.6); PLATELET COUNT 319 K/mm3 (130-400); RED BLOOD COUNT 4.67 M/mm3 (4.20-5.60); REDCELL DISTRIBUTION WIDTH-CV 13.9 % (11.5-14.5)
[2020-05-07 17:13] LABS: ALBUMIN 3.6 gm/dL (3.5-5.0); BILIRUBIN,TOTAL 1.2 mg/dL (0.0-1.0); CALCIUM 9.1 mg/dL (8.4-10.2); CREATININE, serum 0.9 (0.66-1.25); POTASSIUM 4.4 mmol/L (3.4-5.0); TOTAL PROTEIN 6.7 gm/dL (6.4-8.2)
[2020-05-07 20:09] VITALS: BP 114/75; PULSE 95; TEMP 97.7
[2020-05-07] MEDS ORDERED: AEROECLIPSE NEB1 DEV IH (21:16)
[2020-05-07] MEDS ORDERED: BROVANA15 MCG/2 M IH (21:17)
[2020-05-07] MEDS ORDERED: 00186-0370-20 IH (21:17)
[2020-05-07] MEDS ORDERED: BOTOX 100100 U/VIAL IM (21:18)
[2020-05-07] MEDS ORDERED: SENOKOT8.6 MG PO (21:18)
--- NOTE | 2020-05-07 22:30 | NUR ---
Patient admitted from ED. He is alert and oriented. He is hard to understand, his voice is very hoarse. He has a heimlich valve to his left chest. He is also hard of hearing. Called his to get his medication list updated. Patient is independent in the room. He continues to have diarrhea. His is updated on the visitor policy. No other changes at this time. Oriented patient to the room. Call light within reach.
[2020-05-07 23:28] VITALS: BP 122/85; PULSE 83; TEMP 97.9
[2020-05-08 04:00] VITALS: BP 125/73; PULSE 95; TEMP 98
--- NOTE | 2020-05-08 06:00 | NUR ---
Patient slept most the night. He was up several times to the bathroom. No complaints of pain or nausea. Chest tube intact to left chest. No other changes at this time. Call light within reach.
[2020-05-08 07:54] VITALS: BP 111/71; PULSE 94; TEMP 97.8
--- NOTE | 2020-05-08 08:00 | NUR ---
Patient resting in bed, alert and oriented but very hard of hearing. Heimlich valve chest tube in place. Patient complains of frequent loose stools. Discussed with patient that with previous small bowel obstruction and treatment for reported constipation in the ED last night, loose stools are an expected result. Patient requests PRN immodium, will pass request on to attending. Call light within reach.
[2020-05-08 11:23] VITALS: BP 125/80; PULSE 97; TEMP 97.6
--- NOTE | 2020-05-08 15:41 | NUR ---
Art Education Professor met with the patient but he is very hard of hearing and gave SW permission to contact his , Annie # [phone] to complete initial intake. The lives in [place] with Annie about two block from this hospital. The patient has a cane and walker but is independent. The patient does not have HHS. The patient's PCP is Dr. Dayanara Garrison. The patient is new to Dr. Garrison and his first appointment is a couple of months away and patient receives medications from [facility]. The patient to receive botox injections on June 22 from Ila Sarah APRN. The patient is to go home at discharge and Annie will provide transport. There are no additional needs at this time.
--- NOTE | 2020-05-08 17:09 | NUR ---
Discharge teaching completed with patient and over the phone. Both verbalize understanding. INT removed, catheter intact, hemostasis achieved. Patient escorted to ED entrance via wheel chair where he entered a private vehicle.
== END 2020-05-08 17:26 | disposition home or self-care (01) ==
LOC: COL.ER 13:06 → SURG 18:05
PROVIDERS: Emergency Medicine; ADMIT Surgery
DX: J93.83 Other pneumothorax (principal); K59.09 Other constipation; R51 Headache; I10 Essential (primary) hypertension; J45.909 Unspecified asthma, uncomplicated; Z90.49 Acquired absence of other specified parts of digestive tract; Z87.891 Personal history of nicotine dependence; Z79.899 Other long term (current) drug therapy; Z88.8 Allergy status to other drugs, medicaments and biological substances
CPT/HCPCS: G0378; J0595; J2550

== ENCOUNTER 2020-05-10 11:45 | Emergency (ER) | payer MEDICARE, BC ==
[2008-04-06 07:24] VITALS: BP 120/70
[~2020-05-10] VITALS: Ht 175.3 cm; Wt 59.1 kg
[~2020-05-10 11:45] MED LIST changes: +AEROECLIPSE NEB1 DEV IH; +BOTOX 100100 U/VIAL IM; +BROVANA15 MCG/2 M IH; +SENOKOT8.6 MG PO
[2020-05-10 11:58] VITALS: TEMP 98.7
[2020-05-10 12:46] LABS: BASO % 0.2 % (0.0-2.0); EOS % 0.4 % (0-4.0); GRAN # 9.4 (1.4-6.5); GRAN % 86.8 % (42.2-75.2); HEMATOCRIT 42.5 % (42.0-52.0); HEMOGLOBIN 14.4 g/dl (13.5-18.0); LYMPH # 0.8 (1.2-3.4); LYMPH % 7.6 % (20.0-51.0); MEAN CELL VOLUME 92 fl (80.0-100.0); MEAN CORPUSCULAR HEMOGLOBIN 31 pg (27.0-31.0); MEAN CORPUSCULAR HGB CONC 34 g/dl (33.0-37.0); MEAN PLATELET VOLUME 9.9 fl (7.4-10.4); MONO # 0.5 (0.1-0.6); MONO % 4.4 % (1.7-9.3); PLATELET COUNT 317 K/mm3 (130-400); RED BLOOD COUNT 4.63 M/mm3 (4.20-5.60); REDCELL DISTRIBUTION WIDTH-CV 13.9 % (11.5-14.5)
[2020-05-10 12:59] LABS: COLLECTION METHOD CLEAN CATCH
[2020-05-10 13:06] LABS: ALBUMIN 3.4 gm/dL (3.5-5.0); BILIRUBIN,TOTAL 0.9 mg/dL (0.0-1.0); C-REACTIVE PROTEIN 8.6 mg/dL (0.0-0.9); CREATININE, serum 0.7 (0.66-1.25); POTASSIUM 3.8 mmol/L (3.4-5.0); TOTAL PROTEIN 6.7 gm/dL (6.4-8.2)
[2020-05-10 13:09] LABS: MUCOUS Present /lpf; PH 5 (5-8); SQUAMOUS EPITHELIAL None Seen /hpf; URINE APPEARANCE Cloudy; URINE BACTERIA Moderate /hpf; URINE BILIRUBIN Negative (NEGATIVE); URINE BLOOD 2+ (NEGATIVE); URINE COLOR Amber; URINE GLUCOSE Negative (NEGATIVE); URINE KETONE Negative (NEGATIVE); URINE LEUKOCYTE ESTERASE 2+ (NEGATIVE); URINE NITRATE Negative (NEGATIVE); URINE PROTEIN(semi-quant) 1+ (NEGATIVE); URINE UROBILINOGEN >=4.0 mg/dL (NEGATIVE)
[2020-05-10] MEDS ORDERED: OMNICEF 300MG300 MG PO (13:39)
[2020-05-10 19:14] VITALS: BP 134/78; PULSE 80
== END 2020-05-10 19:16 | disposition home or self-care (01) ==
LOC: COL.ER 11:45
PROVIDERS: Emergency Medicine
DX: K56.41 Fecal impaction (principal); N39.0 Urinary tract infection, site not specified; J93.9 Pneumothorax, unspecified; Z88.6 Allergy status to analgesic agent; Z91.018 Allergy to other foods
CPT/HCPCS: J0696; J7030; Q9967

== ENCOUNTER → 2020-05-11 | Outpatient (CLI) | payer MEDICARE, BC ==
[~2020-05-11] MED LIST changes: +OMNICEF 300MG300 MG PO
== END ==
LOC: COL.RAD 10:14
DX: J93.9 Pneumothorax, unspecified (principal)

== ENCOUNTER 2020-05-19 11:31 | Emergency (ER) | payer MEDICARE, BC ==
[2008-04-06 07:24] VITALS: BP 120/70
[~2020-05-19] VITALS: Ht 175.3 cm; Wt 63.6 kg
[2020-05-19 11:52] VITALS: BP 138/77; TEMP 98.2
[2020-05-19 13:43] VITALS: PULSE 89
== END 2020-05-19 13:42 | disposition home or self-care (01) ==
LOC: COL.ER 11:31
DX: G43.909 Migraine, unspecified, not intractable, without status migrainosus (principal); J45.909 Unspecified asthma, uncomplicated; Z88.6 Allergy status to analgesic agent
CPT/HCPCS: J0595; J2550

== ENCOUNTER 2020-05-22 22:14 | Emergency (ER) | payer MEDICARE, BC ==
[2008-04-06 07:24] VITALS: BP 120/70
[~2020-05-22] VITALS: Ht 175.3 cm; Wt 59.1 kg
[2020-05-22 22:39] VITALS: BP 110/74; TEMP 97.7
[2020-05-23 00:47] VITALS: PULSE 74
[2020-05-24] MEDS ORDERED: SINGULAIR 110 MG/TAB PO (13:18)
[2020-05-24] MEDS ORDERED: PREDNISONE20 MG PO (13:18)
[2020-05-24] MEDS ORDERED: IPRATROPIUM BROM3 M1 IH (13:18)
== END 2020-05-23 00:48 | disposition home or self-care (01) ==
LOC: COL.ER 22:14
DX: G43.909 Migraine, unspecified, not intractable, without status migrainosus (principal); J44.9 Chronic obstructive pulmonary disease, unspecified; Z87.891 Personal history of nicotine dependence; Z90.49 Acquired absence of other specified parts of digestive tract; Z88.6 Allergy status to analgesic agent
CPT/HCPCS: J0595; J2550

== ENCOUNTER 2020-05-26 11:21 | Emergency (ER) | payer MEDICARE, BC ==
[2008-04-06 07:24] VITALS: BP 120/70
[~2020-05-26] VITALS: Ht 175.3 cm; Wt 63.6 kg
[~2020-05-26 11:21] MED LIST changes: +IPRATROPIUM BROM3 M1 IH; +SINGULAIR 110 MG/TAB PO
[2020-05-26 11:43] VITALS: TEMP 98.7
[2020-05-26 16:30] VITALS: BP 108/75; PULSE 74
== END 2020-05-26 16:30 | disposition home or self-care (01) ==
LOC: COL.ER 11:21
DX: R51.9 Headache, unspecified (principal); I25.10 Atherosclerotic heart disease of native coronary artery without angina pectoris; J45.909 Unspecified asthma, uncomplicated; Z90.49 Acquired absence of other specified parts of digestive tract; Z98.61 Coronary angioplasty status; Z87.891 Personal history of nicotine dependence; Z88.6 Allergy status to analgesic agent; Z79.52 Long term (current) use of systemic steroids; Z86.69 Personal history of other diseases of the nervous system and sense organs
CPT/HCPCS: J0595; J2550

== ENCOUNTER 2020-05-31 16:58 | Emergency (ER) | payer MEDICARE, BC ==
[2008-04-06 07:24] VITALS: BP 120/70
[~2020-05-31] VITALS: Ht 175.3 cm; Wt 46.8 kg
[2020-05-31 17:06] VITALS: TEMP 98.7
[2020-05-31 17:55] LABS: BASO % 0.1 % (0.0-2.0); GRAN # 7.2 (1.4-6.5); GRAN % 87.3 % (42.2-75.2); HEMATOCRIT 43.2 % (42.0-52.0); HEMOGLOBIN 14.3 g/dl (13.5-18.0); LYMPH # 0.6 (1.2-3.4); LYMPH % 6.9 % (20.0-51.0); MEAN CELL VOLUME 94 fl (80.0-100.0); MEAN CORPUSCULAR HEMOGLOBIN 31 pg (27.0-31.0); MEAN CORPUSCULAR HGB CONC 33 g/dl (33.0-37.0); MEAN PLATELET VOLUME 9.9 fl (7.4-10.4); MONO # 0.4 (0.1-0.6); PLATELET COUNT 424 K/mm3 (130-400); RED BLOOD COUNT 4.62 M/mm3 (4.20-5.60); REDCELL DISTRIBUTION WIDTH-CV 14.6 % (11.5-14.5)
[2020-05-31 18:18] LABS: ALANINE AMINOTRANSFERASE 20 U/L (4-49); ALBUMIN 3.7 gm/dL (3.5-5.0); ALKALINE PHOSPHATASE 65 U/L (50-136); ANION GAP 7 mmol/L (7-16); AST,SGOT 28 U/L (15-37); BILIRUBIN,TOTAL 0.6 mg/dL (0.0-1.0); BLOOD UREA NITROGEN 16 mg/dL (9-20); C-REACTIVE PROTEIN 0.8 mg/dL (0.0-0.9); CALCIUM 9.2 mg/dL (8.4-10.2); CARBON DIOXIDE 32 mmol/L (22-30); CHLORIDE 97 mmol/L (98-107); CREATININE, serum 0.65 (0.66-1.25); GLUCOSE 128 mg/dL (74-106); POTASSIUM 4.4 mmol/L (3.4-5.0); SODIUM 136 mmol/L (137-145)
[2020-05-31 18:26] LABS: TROPONIN-I < 0.012 ng/mL (0.000-0.035)
[2020-05-31] MEDS ORDERED: PREDNISONE20 MG PO (19:05)
[2020-05-31] MEDS ORDERED: ZITHROMAX 250M250 MG PO (19:08)
[2020-05-31 19:21] VITALS: BP 122/76; PULSE 81
== END 2020-05-31 19:30 | disposition home or self-care (01) ==
LOC: COL.ER 16:58
PROVIDERS: Emergency Medicine
DX: R51.9 Headache, unspecified (principal); J44.9 Chronic obstructive pulmonary disease, unspecified; J45.909 Unspecified asthma, uncomplicated; Z86.69 Personal history of other diseases of the nervous system and sense organs; Z88.6 Allergy status to analgesic agent; Z79.52 Long term (current) use of systemic steroids; Z79.51 Long term (current) use of inhaled steroids
CPT/HCPCS: J0595; J2550; J7030; J7512

== ENCOUNTER 2020-06-08 14:47 | Emergency (ER) | payer MEDICARE, BC ==
[2008-04-06 07:24] VITALS: BP 120/70
[~2020-06-08] VITALS: Ht 175.3 cm; Wt 50.0 kg
[2020-06-08 14:55] VITALS: TEMP 97.6
[2020-06-08 15:43] LABS: HEMATOCRIT 46.6 % (42.0-52.0); HEMOGLOBIN 15.5 g/dl (13.5-18.0); MEAN CELL VOLUME 93 fl (80.0-100.0); MEAN CORPUSCULAR HEMOGLOBIN 31 pg (27.0-31.0); MEAN CORPUSCULAR HGB CONC 33 g/dl (33.0-37.0); MEAN PLATELET VOLUME 9.7 fl (7.4-10.4); PLATELET COUNT 289 K/mm3 (130-400); RED BLOOD COUNT 5.01 M/mm3 (4.20-5.60)
[2020-06-08 15:57] LABS: ALANINE AMINOTRANSFERASE 32 U/L (4-49); ALBUMIN 3.6 gm/dL (3.5-5.0); ALKALINE PHOSPHATASE 82 U/L (50-136); ANION GAP 4 mmol/L (7-16); AST,SGOT 36 U/L (15-37); BLOOD UREA NITROGEN 25 mg/dL (9-20); C-REACTIVE PROTEIN 2.4 mg/dL (0.0-0.9); CALCIUM 9.3 mg/dL (8.4-10.2); CARBON DIOXIDE 37 mmol/L (22-30); CHLORIDE 98 mmol/L (98-107); CREATININE, serum 0.64 (0.66-1.25); GLUCOSE 133 mg/dL (74-106); LIPASE 171 U/L (23-300); MAGNESIUM 2.5 mg/dL (1.6-2.3); POTASSIUM 4.8 mmol/L (3.4-5.0); SODIUM 138 mmol/L (137-145); TOTAL PROTEIN 6.9 gm/dL (6.4-8.2)
[2020-06-08 16:09] LABS: TROPONIN-I < 0.012 ng/mL (0.000-0.035)
[2020-06-08 16:17] LABS: ANISOCYTOSIS 2+; BAND 2 % (0-10); LYMPHOCYTE 3 % (20.0-51.0); NEUTROPHILS 94 % (42.0-75.2); PLATELET ESTIMATE NORMAL (NORMAL)
[2020-06-08 18:48] LABS: INR 0.9 (0.8-3.0); PROTHROMBIN TIME 10.3 SECONDS (9.7-12.8)
[2020-06-08 19:21] LABS: COLLECTION METHOD CLEAN CATCH
[2020-06-08 19:31] LABS: MUCOUS Present /lpf; PH 8 (5-8); SQUAMOUS EPITHELIAL 0-2 /hpf; URINE APPEARANCE Clear; URINE BACTERIA None Seen /hpf; URINE BILIRUBIN Negative (NEGATIVE); URINE BLOOD Negative (NEGATIVE); URINE COLOR Yellow; URINE GLUCOSE Negative (NEGATIVE); URINE KETONE Negative (NEGATIVE); URINE LEUKOCYTE ESTERASE Negative (NEGATIVE); URINE NITRATE Negative (NEGATIVE); URINE PROTEIN(semi-quant) Negative (NEGATIVE); URINE UROBILINOGEN Negative (NEGATIVE)
[2020-06-09 03:35] VITALS: BP 134/91; PULSE 89
== END 2020-06-09 03:35 | disposition short-term general hospital (02) ==
LOC: COL.ER 14:47
PROVIDERS: Emergency Medicine
DX: I26.99 Other pulmonary embolism without acute cor pulmonale (principal); J98.2 Interstitial emphysema; J45.909 Unspecified asthma, uncomplicated; J44.9 Chronic obstructive pulmonary disease, unspecified; G43.909 Migraine, unspecified, not intractable, without status migrainosus; Z88.6 Allergy status to analgesic agent; Z88.1 Allergy status to other antibiotic agents; Z79.52 Long term (current) use of systemic steroids
CPT/HCPCS: J0595; J1644; J2543; J2550; J7030; Q9967

== ENCOUNTER 2020-07-06 12:10 | Emergency (ER) | payer MEDICARE, BC ==
[2008-04-06 07:24] VITALS: BP 120/70
[~2020-07-06] VITALS: Ht 177.8 cm; Wt 50.0 kg
[2020-07-06 12:14] VITALS: BP 109/76; PULSE 100; TEMP 98.4
== END 2020-07-06 13:10 | disposition home or self-care (01) ==
LOC: COL.ER 12:10
DX: G43.909 Migraine, unspecified, not intractable, without status migrainosus (principal); J44.9 Chronic obstructive pulmonary disease, unspecified; J45.909 Unspecified asthma, uncomplicated; Z87.442 Personal history of urinary calculi; Z88.6 Allergy status to analgesic agent; Z88.1 Allergy status to other antibiotic agents; Z87.891 Personal history of nicotine dependence; Z79.52 Long term (current) use of systemic steroids; Z79.51 Long term (current) use of inhaled steroids
CPT/HCPCS: J0595; J2550

== ENCOUNTER 2020-07-09 10:12 | Emergency (ER) | payer MEDICARE, BC ==
[2008-04-06 07:24] VITALS: BP 120/70
[~2020-07-09] VITALS: Ht 175.3 cm; Wt 72.7 kg
[2020-07-09 10:18] VITALS: TEMP 97.5
[2020-07-09 10:57] VITALS: BP 140/81; PULSE 90
--- NOTE | 2020-07-10 13:58 | NUR ---
compensator worker met with provider and discussed concerned for patient due to frailness and end stage COPD. Worker left message for manager reliability, Pamela Stallings, at Dr Holden's office to call and discuss.
--- NOTE | 2020-07-10 15:29 | NUR ---
black off worker clarified with Pamela at Dr Holden's office that patient has an appointment on 07/17 for an initial intake as patient's primary will now be Dr Garrison.
== END 2020-07-09 10:59 | disposition home or self-care (01) ==
LOC: COL.ER 10:12
DX: G43.909 Migraine, unspecified, not intractable, without status migrainosus (principal); J44.9 Chronic obstructive pulmonary disease, unspecified; J45.909 Unspecified asthma, uncomplicated; Z20.828 Contact with and (suspected) exposure to other viral communicable diseases; Z88.6 Allergy status to analgesic agent
CPT/HCPCS: J0595; J2550

== ENCOUNTER 2020-07-13 10:36 | Emergency (ER) | payer MEDICARE, BC ==
[2008-04-06 07:24] VITALS: BP 120/70
[~2020-07-13] VITALS: Ht 175.3 cm; Wt 63.6 kg
[2020-07-13 10:43] VITALS: TEMP 97.8
[2020-07-13 11:28] VITALS: BP 119/58; PULSE 92
== END 2020-07-13 11:28 | disposition home or self-care (01) ==
LOC: COL.ER 10:36
DX: G43.909 Migraine, unspecified, not intractable, without status migrainosus (principal); Z88.6 Allergy status to analgesic agent; Z87.891 Personal history of nicotine dependence; Z79.52 Long term (current) use of systemic steroids; Z79.51 Long term (current) use of inhaled steroids

== ENCOUNTER 2020-07-15 11:52 | Emergency (ER) | payer MEDICARE, BC ==
[2008-04-06 07:24] VITALS: BP 120/70
[~2020-07-15] VITALS: Ht 175.3 cm; Wt 63.6 kg
[2020-07-15 12:11] VITALS: TEMP 98.5
[2020-07-15 14:19] LABS: BASO % 0.3 % (0.0-2.0); EOS % 0.4 % (0-4.0); GRAN # 8.8 (1.4-6.5); GRAN % 82.8 % (42.2-75.2); HEMATOCRIT 41.1 % (42.0-52.0); HEMOGLOBIN 13.2 g/dl (13.5-18.0); LYMPH # 1.1 (1.2-3.4); LYMPH % 10.3 % (20.0-51.0); MEAN CELL VOLUME 98 fl (80.0-100.0); MEAN CORPUSCULAR HEMOGLOBIN 32 pg (27.0-31.0); MEAN CORPUSCULAR HGB CONC 32 g/dl (33.0-37.0); MEAN PLATELET VOLUME 9.5 fl (7.4-10.4); MONO # 0.6 (0.1-0.6); MONO % 5.4 % (1.7-9.3); PLATELET COUNT 388 K/mm3 (130-400); RED BLOOD COUNT 4.18 M/mm3 (4.20-5.60); REDCELL DISTRIBUTION WIDTH-CV 15.7 % (11.5-14.5)
[2020-07-15 14:34] LABS: ALANINE AMINOTRANSFERASE 23 U/L (4-49); ALBUMIN 3.8 gm/dL (3.5-5.0); ALKALINE PHOSPHATASE 76 U/L (50-136); ANION GAP 5 mmol/L (7-16); AST,SGOT 35 U/L (15-37); BILIRUBIN,TOTAL 0.4 mg/dL (0.0-1.0); BLOOD UREA NITROGEN 21 mg/dL (9-20); CALCIUM 9.2 mg/dL (8.4-10.2); CARBON DIOXIDE 36 mmol/L (22-30); CHLORIDE 101 mmol/L (98-107); CREATININE, serum 0.65 (0.66-1.25); GLUCOSE 132 mg/dL (74-106); POTASSIUM 4.2 mmol/L (3.4-5.0); SODIUM 143 mmol/L (137-145); TOTAL PROTEIN 7.2 gm/dL (6.4-8.2)
[2020-07-15 14:48] LABS: TROPONIN-I < 0.012 ng/mL (0.000-0.035)
[2020-07-15 15:05] VITALS: BP 108/96; PULSE 104
== END 2020-07-15 15:12 | disposition home or self-care (01) ==
LOC: COL.ER 11:52
PROVIDERS: Emergency Medicine
DX: R51.9 Headache, unspecified (principal); Z20.828 Contact with and (suspected) exposure to other viral communicable diseases; Z87.891 Personal history of nicotine dependence; Z98.61 Coronary angioplasty status; Z90.49 Acquired absence of other specified parts of digestive tract; Z88.6 Allergy status to analgesic agent; Z88.8 Allergy status to other drugs, medicaments and biological substances; Z79.51 Long term (current) use of inhaled steroids
CPT/HCPCS: J0595; J2550

== ENCOUNTER 2020-07-23 13:37 | Emergency (ER) | payer MEDICARE, BC ==
[2008-04-06 07:24] VITALS: BP 120/70
[~2020-07-23] VITALS: Ht 175.3 cm; Wt 68.2 kg
[2020-07-23 13:43] VITALS: TEMP 98.3
[2020-07-23 14:21] VITALS: BP 125/78; PULSE 74
[2020-07-27] MEDS ORDERED: PROAIR HFA0.09 MG/AC IH (16:59)
[2020-07-27] MEDS ORDERED: IPRATROPIUM BROM3 M1 IH (16:59)
== END 2020-07-23 14:18 | disposition home or self-care (01) ==
LOC: COL.ER 13:37
DX: R51.9 Headache, unspecified (principal); G89.29 Other chronic pain; Z90.49 Acquired absence of other specified parts of digestive tract; Z98.61 Coronary angioplasty status; Z87.891 Personal history of nicotine dependence; Z88.6 Allergy status to analgesic agent; Z79.51 Long term (current) use of inhaled steroids
CPT/HCPCS: J1200; J2765

== ENCOUNTER → 2020-07-27 | Emergency (ER) | payer MEDICARE, BC ==
[2008-04-06 07:24] VITALS: BP 120/70
[~2020-07-27] VITALS: Ht 182.9 cm; Wt 54.5 kg
[~2020-07-27] MED LIST changes: +AMOXICILLIN 8751 TAB PO; +ELIQUIS 5MG PO; +PROAIR HFA0.09 MG/AC IH
[2020-07-27 15:10] VITALS: BP 139/96; PULSE 85; TEMP 97.7
== END ==
LOC: COL.ER 14:59
DX: G43.909 Migraine, unspecified, not intractable, without status migrainosus (principal); J84.10 Pulmonary fibrosis, unspecified; J43.9 Emphysema, unspecified; Z87.891 Personal history of nicotine dependence; Z88.6 Allergy status to analgesic agent; Z79.51 Long term (current) use of inhaled steroids
CPT/HCPCS: J0595; J1100; J1200; J2765; J7030

== ENCOUNTER 2020-08-01 13:15 | Inpatient (IN) | payer MEDICARE, BC ==
[~2020-08-01] VITALS: Ht 175.3 cm; Wt 50.9 kg
[2020-08-01 14:04] LABS: BASO % 0.6 % (0.0-2.0); EOS # 0.1 (0.0-0.7); EOS % 1.1 % (0-4.0); GRAN # 5.3 (1.4-6.5); GRAN % 82.3 % (42.2-75.2); HEMATOCRIT 37.7 % (42.0-52.0); HEMOGLOBIN 12.1 g/dl (13.5-18.0); LYMPH # 0.7 (1.2-3.4); LYMPH % 10.3 % (20.0-51.0); MEAN CELL VOLUME 99 fl (80.0-100.0); MEAN CORPUSCULAR HEMOGLOBIN 32 pg (27.0-31.0); MEAN CORPUSCULAR HGB CONC 32 g/dl (33.0-37.0); MEAN PLATELET VOLUME 9.7 fl (7.4-10.4); MONO # 0.3 (0.1-0.6); MONO % 4.9 % (1.7-9.3); PLATELET COUNT 407 K/mm3 (130-400); RED BLOOD COUNT 3.82 M/mm3 (4.20-5.60); REDCELL DISTRIBUTION WIDTH-CV 14.2 % (11.5-14.5)
[2020-08-01 14:25] LABS: ALBUMIN 3.6 gm/dL (3.5-5.0); BILIRUBIN,TOTAL 0.3 mg/dL (0.0-1.0); CALCIUM 9.1 mg/dL (8.4-10.2); CREATININE, serum 0.59 (0.66-1.25); POTASSIUM 4.4 mmol/L (3.4-5.0); TOTAL PROTEIN 7.5 gm/dL (6.4-8.2)
--- NOTE | 2020-08-01 17:00 | NUR ---
Admission assessment completed, alert/oriented, vital signs stable, reports headache is improved sence recieving meds in the ER, no resp.difficulty noted at rest but patient does report feeling SOA, lungs CTA/ diminished in the RLL, meds/allergies/pharm reviewed, in room seeing the patient, he reprots being hungry
[2020-08-01 17:17] VITALS: BP 157/91; PULSE 86; TEMP 97.7
[2020-08-01 19:22] VITALS: BP 113/64; PULSE 96; TEMP 97.7
--- NOTE | 2020-08-01 20:00 | NUR ---
PATIENT RESTING IN BED. COMPLAINTS OF 10/10 PAIN IN HIS HEAD. CALLED [facility] AND GOT ORDERS FOR REGLAN AND BENADRYL. ADMINISTERED PER ORDERS.
--- NOTE | 2020-08-01 22:38 | NUR ---
PATIENT REPORTS HE HIS HAVING TROUBLE BREATHING. HIS OXYGEN IS 98%. SAT HIS HEAD UP AND ENCOURAGED HIM TO COUGH AND DEEP BREATH. CALLED RT TO SEE IF HE COULD HAVE A BREATHING TREATMENT BUT IT IS NOT QUITE TIME FOR HIM TO RECEIVE ANOTHER ONE.
[2020-08-01 22:59] VITALS: BP 114/69; PULSE 89; TEMP 97.7
--- NOTE | 2020-08-01 23:00 | NUR ---
PATIENT'S RESPIRATORY PANEL CAME BACK NEGATIVE. PATIENT TAKEN OUT OF ISOLATION.
[2020-08-02 03:28] VITALS: BP 105/64; PULSE 83; TEMP 98
--- NOTE | 2020-08-02 05:26 | NUR ---
PATIENT REPORTED TO LAB HE HAD A BAD MIGRAINE. WENT TO CHECK ON PATIENT AND HE WAS ASLEEP. WILL CHECK BACK WITH PATIENT IN A LITTLE BIT.
[2020-08-02 06:31] LABS: BASO # 0.1 (0.0-0.2); BASO % 0.6 % (0.0-2.0); EOS # 0.2 (0.0-0.7); EOS % 2.3 % (0-4.0); GRAN # 6.7 (1.4-6.5); GRAN % 78.4 % (42.2-75.2); HEMATOCRIT 37.4 % (42.0-52.0); HEMOGLOBIN 11.9 g/dl (13.5-18.0); LYMPH % 11.5 % (20.0-51.0); MEAN CELL VOLUME 100 fl (80.0-100.0); MEAN CORPUSCULAR HEMOGLOBIN 32 pg (27.0-31.0); MEAN CORPUSCULAR HGB CONC 32 g/dl (33.0-37.0); MEAN PLATELET VOLUME 10.1 fl (7.4-10.4); MONO # 0.6 (0.1-0.6); MONO % 6.6 % (1.7-9.3); PLATELET COUNT 411 K/mm3 (130-400); RED BLOOD COUNT 3.76 M/mm3 (4.20-5.60)
[2020-08-02 06:46] LABS: ALBUMIN 3.1 gm/dL (3.5-5.0); BILIRUBIN,TOTAL 0.3 mg/dL (0.0-1.0); CALCIUM 9.1 mg/dL (8.4-10.2); CREATININE, serum 0.67 (0.66-1.25); POTASSIUM 4.4 mmol/L (3.4-5.0); TOTAL PROTEIN 6.4 gm/dL (6.4-8.2)
--- NOTE | 2020-08-02 08:05 | NUR ---
Patient having complaints of a migrane, reports he has had migranes since he was a child. Hospitalist service notifed & orders obtained, patietn medicated per orders.
[2020-08-02 08:23] VITALS: BP 138/62; PULSE 50; TEMP 97.9
--- NOTE | 2020-08-02 09:30 | NUR ---
Therapy working with patient at this time
--- NOTE | 2020-08-02 10:44 | NUR ---
Initial visit; Patient thanked Laborer [employer]age for looking in on him anbd offering prayer and God's blessings.
--- NOTE | 2020-08-02 11:20 | NUR ---
Patient calls out again in pain. 05/27. Hospitalist service notified & spoke with pharmacist geneva. Home imitrex dose given.
--- NOTE | 2020-08-02 11:54 | NUR ---
Patient sitting up in bed. Diet order changed to soft, patient has no teeth & unable to chew the chicken for lunch.
[2020-08-02 12:18] VITALS: BP 138/86; PULSE 96; TEMP 98.1
--- NOTE | 2020-08-02 12:54 | NUR ---
Sports Journalist collaborated with TORRI Bradley about patient. Mirna advised that patient would benefit from post acute rehab if he is agreeable. SW met with patient to discuss discharge planning. Patient lives in [place] with his , Annie (ph#[phone]) [address] Dr. Garrison for primary care. Patient obtains medications from [facility] with no difficulties. Patient states he has a walker at home from when his had hip surgery. Patient states he normally is independent with ADLS. Patient was not sure if he had ever completed DPOA- paperwork. SW discussed post acute rehab with patient who states he would be agreeable if his insurance would cover the stay. Patient's first preference would be [facility] and his second preference is [facility]. SW contacted patient's , Annie to provide update. Annie also is agreeable but only if patient's insurance covers the stay. NELLA contacted Ameya at [facility] and faxed referral. NELLA then contacted Macie at [facility] who advised they cannot accept any new referrals this week. NELLA will continue to follow.
--- NOTE | 2020-08-02 15:57 | NUR ---
Ameya at [facility] advised they are able to accept patient.
[2020-08-02 16:26] VITALS: BP 133/53; PULSE 94; TEMP 97.9
--- NOTE | 2020-08-02 17:12 | NUR ---
Patient up and down to the bathroom frequently. Voiding. High fall risk protocol followed. Speech assessed patient, [facility] soft diet okay, he did okay with liquids. Patient po intake encouraged. Spoke with patietn on the phone. Update given. Patient resting in bed, watching TV.
[2020-08-02 19:22] VITALS: BP 125/69; PULSE 92; TEMP 97.7
--- NOTE | 2020-08-02 19:52 | NUR ---
RECEIVED CHANGE OF SHIFT REPORT FROM DAY SHIFT NURSE.
[2020-08-03] VITALS (7 sets, daily range): BP systolic 104–131; BP diastolic 67–89; PULSE 79–102; TEMP 97.4–98.6
--- NOTE | 2020-08-03 00:14 | NUR ---
PATIENT CONTINUES TO GET OUT OF BED, REPEATEDLY ASKING WHERE HE IS AT, THEN APOLOGIZES THAT HE GOT OUT OF BED WITHOUT CALLING FOR HELP FROM STAFF. TELE IN PLACE. SPEECH CLEAR, INFORMED STAFF THAT PATIENT USUALLY WEARS OXYGEN CONTINUOUSLY AT HOME FROM 2-4 LPM. OX PLACED PER NC. NO FURTHER C/O OF HEADACHE.
--- NOTE | 2020-08-03 01:27 | NUR ---
INFORMED SRUTHI LANGSTON OF PATIENT'S NEW SYMPTOMS OF CONFUSION, OFF O2 AND USUALLY ON OXYGEN AT HOME. ORDER FOR ABG PUT IN BY PROVIDER AND RT INFORMED OF ABGS ORDERED.
[2020-08-03 01:54] LABS: ARTERIAL BLD GAS TCO2 CT 30.3; ARTERIAL BLOOD GAS BASE EXCESS 3.2 (-2-2); ARTERIAL BLOOD GAS HCO3 28.9 meq/L (22-26); ARTERIAL BLOOD GAS PCO2 47.8 mmHg (35-45)
[2020-08-03 01:59] LABS: ARTERIAL BLOOD GAS PO2 129.7 mmHg (80-100)
--- NOTE | 2020-08-03 03:27 | NUR ---
ABGs REVIEWED BY PROVIDER, PATIENT ALSO EVALUATED BY PROVIDER, ORDERS TO TAKE OXYGEN OFF AT THIS TIME. PATIENT RESTING WITH EYES CLOSED, NO FURTHER IMPULSIVE BEHAVIOR (IE CLIMBING OUT OF BED UNAIDED, SETTING OFF BED ALARM) SINCE MOVED TO ROOM 325 FROM 347.
[2020-08-03 06:43] LABS: HEMATOCRIT 39.5 % (42.0-52.0); MEAN CORPUSCULAR HEMOGLOBIN 31 pg (27.0-31.0); MEAN CORPUSCULAR HGB CONC 33 g/dl (33.0-37.0); MEAN PLATELET VOLUME 9.9 fl (7.4-10.4); PLATELET COUNT 486 K/mm3 (130-400); RED BLOOD COUNT 4.16 M/mm3 (4.20-5.60)
[2020-08-03 06:58] LABS: CALCIUM 9.3 mg/dL (8.4-10.2); CREATININE, serum 0.69 (0.66-1.25); POTASSIUM 4.3 mmol/L (3.4-5.0)
--- NOTE | 2020-08-03 06:59 | NUR ---
CHANGE OF SHIFT REPORT GIVEN TO DAY SHIFT NURSEMADHAVI.
[2020-08-03 07:04] LABS: MEAN CELL VOLUME 95 fl (80.0-100.0)
[2020-08-03 07:40] LABS: BAND 7 % (0-10); LYMPHOCYTE 5 % (20.0-51.0); METAMYELOCYTE 1 % (0-0); NEUTROPHILS 86 % (42.0-75.2)
[2020-08-03 07:41] LABS: PLATELET ESTIMATE INCREASED (NORMAL)
--- NOTE | 2020-08-03 08:53 | NUR ---
PT SITTING UP IN BED, EATING AND DRINKING WITH NO N/V. PT DENIES PAIN. ROUNDED ON PT THIS AM. POSSIBLE DISCHARGE TO [facility] LATER TODAY OR TOMMMORROW.
--- NOTE | 2020-08-03 10:25 | NUR ---
Cycle Repairer faxed clinical updates to Ameya who advised they will have a male bed tomorrow. Patient's COVID test came back negative. Patient will discharge to [facility] tomorrow. SW contacted patient's , Annie to provide update on discharge plan.
--- NOTE | 2020-08-03 11:03 | NUR ---
UPDATED PT'S ON POSSIBLE TRANSFER TO [facility].
--- NOTE | 2020-08-03 20:00 | NUR ---
Patient in bed resting. Alert and oriented x 3. Assessment complete. Assisted patient to restroom, SBA with walker, steady gait. Denies pain at this time. Excoriation noted to coccyx, barrier cream applied. Denies further needs at this time.
[2020-08-04 04:37] VITALS: BP 104/64; PULSE 81; TEMP 97.4
--- NOTE | 2020-08-04 05:56 | NUR ---
Patient has done well through the night, sleeps between disturbances. Has been up ambulaing in room with steady gait. Up to restroom multiple times throughout the night. Patient forgetfull at night, reminded patient to use call light. Patient able to recall person, place, time. Bed alarm on. Denies further needs at this time. Mepliex to sacrum. Will report off to day shift.
[2020-08-04 07:21] VITALS: BP 114/75; PULSE 91; TEMP 99.4
--- NOTE | 2020-08-04 08:50 | NUR ---
PT SITTING UP IN BED ATE 100 % OF BREAKFAST. PLAN ON DISCHARGE LATER TODAY. PT IS A/O X3 AND STAND BY ASSIST.
[2020-08-04] MEDS ORDERED: OMNICEF 300MG300 MG PO (09:06)
[2020-08-04] MEDS ORDERED: ZITHROMAX 250M250 MG PO (09:06)
[2020-08-04] MEDS ORDERED: ELIQUIS 5MG PO (09:06)
--- NOTE | 2020-08-04 12:20 | NUR ---
REPORT TO [facility]. PT LEFT WITH STAFF PER WHEEL CHAIR.
--- NOTE | 2020-08-04 13:11 | NUR ---
Patient ready to be discharged today. SW contacted Ameya at [facility] [employer] and faxed discharge orders. Transport time set for 1200. SW met with patient who had some difficulty hearing. Patient states he is not happy about going to post acute rehab but just wants to get it over with. SW provided transport time to patient. SW then contacted patient's , Annie and provided transport time. Annie is in agreement with post acute rehab at [facility] as patient has been in the ER multiple times and she feels he needs to get better before returning home. SW read IM form aloud to Annie who verbalized understanding and gave SW permission to sign on her behalf. SW placed form in chart. No additional needs at this time.
== END 2020-08-04 12:21 | DRG 175 ==
LOC: COL.ER 13:15 → SURG 15:56
PROVIDERS: Family Medicine; Nurse Practitioner Family; Physician Assistant; Student in an Organized Health Care Education/Training Program; ADMIT Hospitalist
DX: I26.99 Other pulmonary embolism without acute cor pulmonale (principal); J18.9 Pneumonia, unspecified organism; E43 Unspecified severe protein-calorie malnutrition; J44.0 Chronic obstructive pulmonary disease with (acute) lower respiratory infection; Z68.1 Body mass index [BMI] 19.9 or less, adult; D53.9 Nutritional anemia, unspecified; I25.10 Atherosclerotic heart disease of native coronary artery without angina pectoris; Z66 Do not resuscitate; R74.01 Elevation of levels of liver transaminase levels; K57.90 Diverticulosis of intestine, part unspecified, without perforation or abscess without bleeding; D69.6 Thrombocytopenia, unspecified; G43.909 Migraine, unspecified, not intractable, without status migrainosus; Z87.891 Personal history of nicotine dependence
CPT/HCPCS: 99232-AI; J0595; J0696; J1100; J1200; J2550; J2765

== ENCOUNTER 2020-08-17 17:04 | Emergency (ER) | payer MEDICARE, BC ==
[2008-04-06 07:24] VITALS: BP 120/70
[~2020-08-17] VITALS: Ht 175.3 cm; Wt 68.2 kg
[2020-08-17 17:09] VITALS: TEMP 98.3
[2020-08-17 17:53] VITALS: BP 129/85; PULSE 98
== END 2020-08-17 18:19 | disposition home or self-care (01) ==
LOC: COL.ER 17:04
DX: G43.909 Migraine, unspecified, not intractable, without status migrainosus (principal); J44.9 Chronic obstructive pulmonary disease, unspecified; I25.10 Atherosclerotic heart disease of native coronary artery without angina pectoris; Z88.6 Allergy status to analgesic agent; Z88.1 Allergy status to other antibiotic agents; Z87.891 Personal history of nicotine dependence; Z79.01 Long term (current) use of anticoagulants; Z79.51 Long term (current) use of inhaled steroids
CPT/HCPCS: J0595; J2550

== ENCOUNTER 2020-08-20 16:01 | Emergency (ER) | payer MEDICARE, BC ==
[2008-04-06 07:24] VITALS: BP 120/70
[~2020-08-20] VITALS: Ht 175.3 cm; Wt 68.2 kg
[2020-08-20 16:04] VITALS: TEMP 98.9
[2020-08-20 16:45] VITALS: BP 144/78; PULSE 97
== END 2020-08-20 16:45 | disposition home or self-care (01) ==
LOC: COL.ER 16:01
DX: G43.909 Migraine, unspecified, not intractable, without status migrainosus (principal); J45.909 Unspecified asthma, uncomplicated; Z90.49 Acquired absence of other specified parts of digestive tract; Z98.61 Coronary angioplasty status; Z87.891 Personal history of nicotine dependence; Z88.6 Allergy status to analgesic agent; Z79.01 Long term (current) use of anticoagulants; Z79.51 Long term (current) use of inhaled steroids
CPT/HCPCS: J0595; J2550

== ENCOUNTER 2020-08-24 11:27 | Emergency (ER) | payer MEDICARE, BC ==
[2008-04-06 07:24] VITALS: BP 120/70
[~2020-08-24] VITALS: Ht 401.3 cm; Wt 68.2 kg
[2020-08-24 11:38] VITALS: BP 122/82; TEMP 97.8
[2020-08-24 12:51] VITALS: PULSE 105
== END 2020-08-24 12:51 | disposition home or self-care (01) ==
LOC: COL.ER 11:27
DX: G43.909 Migraine, unspecified, not intractable, without status migrainosus (principal); J44.9 Chronic obstructive pulmonary disease, unspecified; Z98.61 Coronary angioplasty status; Z90.49 Acquired absence of other specified parts of digestive tract; Z87.891 Personal history of nicotine dependence; Z88.6 Allergy status to analgesic agent; Z79.01 Long term (current) use of anticoagulants; Z79.51 Long term (current) use of inhaled steroids
CPT/HCPCS: J0595; J2550

== ENCOUNTER 2020-08-26 16:22 | Emergency (ER) | payer MEDICARE, BC ==
[2008-04-06 07:24] VITALS: BP 120/70
[~2020-08-26] VITALS: Ht 157.5 cm; Wt 63.6 kg
[2020-08-26 16:28] VITALS: TEMP 98.2
[2020-08-26 17:30] VITALS: BP 138/80; PULSE 92
== END 2020-08-26 17:30 | disposition home or self-care (01) ==
LOC: COL.ER 16:22
DX: G43.909 Migraine, unspecified, not intractable, without status migrainosus (principal); J45.909 Unspecified asthma, uncomplicated; Z98.61 Coronary angioplasty status; Z90.49 Acquired absence of other specified parts of digestive tract; Z88.6 Allergy status to analgesic agent; Z79.51 Long term (current) use of inhaled steroids; Z79.01 Long term (current) use of anticoagulants
CPT/HCPCS: J0595; J2550

== ENCOUNTER 2020-08-28 10:08 | Emergency (ER) | payer MEDICARE, BC ==
[2008-04-06 07:24] VITALS: BP 120/70
[~2020-08-28] VITALS: Ht 157.5 cm; Wt 68.2 kg
[2020-08-28 10:10] VITALS: BP 118/63; TEMP 98
[2020-08-28 10:55] VITALS: PULSE 61
== END 2020-08-28 10:53 | disposition home or self-care (01) ==
LOC: COL.ER 10:08
DX: G43.909 Migraine, unspecified, not intractable, without status migrainosus (principal); Z88.6 Allergy status to analgesic agent; Z88.1 Allergy status to other antibiotic agents; Z87.891 Personal history of nicotine dependence; Z79.01 Long term (current) use of anticoagulants; Z79.51 Long term (current) use of inhaled steroids
CPT/HCPCS: J0595; J2550

== ENCOUNTER 2020-08-29 13:33 | Emergency (ER) | payer MEDICARE, BC ==
[2008-04-06 07:24] VITALS: BP 120/70
[~2020-08-29] VITALS: Ht 175.3 cm; Wt 63.6 kg
[2020-08-29 13:42] VITALS: TEMP 98.3
[2020-08-29 15:10] VITALS: BP 124/75; PULSE 82
== END 2020-08-29 14:45 | disposition home or self-care (01) ==
LOC: COL.ER 13:33
DX: R51.9 Headache, unspecified (principal); Z88.6 Allergy status to analgesic agent; Z88.1 Allergy status to other antibiotic agents; Z79.01 Long term (current) use of anticoagulants; Z79.51 Long term (current) use of inhaled steroids
CPT/HCPCS: J1200; J2765

== ENCOUNTER 2020-08-30 23:34 | Emergency (ER) | payer MEDICARE, BC ==
[2008-04-06 07:24] VITALS: BP 120/70
[~2020-08-30] VITALS: Ht 175.3 cm; Wt 70.5 kg
[2020-08-30 23:55] VITALS: TEMP 97.5
[2020-08-31 00:35] VITALS: BP 129/80; PULSE 105
== END 2020-08-31 00:35 | disposition home or self-care (01) ==
LOC: COL.ER 23:34
DX: G43.909 Migraine, unspecified, not intractable, without status migrainosus (principal); J44.9 Chronic obstructive pulmonary disease, unspecified; Z88.6 Allergy status to analgesic agent; Z88.1 Allergy status to other antibiotic agents; Z87.891 Personal history of nicotine dependence; Z79.01 Long term (current) use of anticoagulants; Z79.51 Long term (current) use of inhaled steroids
CPT/HCPCS: J0595

== ENCOUNTER 2020-09-03 14:46 | Emergency (ER) | payer MEDICARE, BC ==
[2008-04-06 07:24] VITALS: BP 120/70
[~2020-09-03] VITALS: Ht 175.3 cm; Wt 59.1 kg
[2020-09-03 14:48] VITALS: TEMP 98.3
[2020-09-03 15:45] VITALS: BP 126/77; PULSE 89
== END 2020-09-03 15:45 | disposition home or self-care (01) ==
LOC: COL.ER 14:46
DX: R51.9 Headache, unspecified (principal); J45.909 Unspecified asthma, uncomplicated; Z98.61 Coronary angioplasty status; Z90.49 Acquired absence of other specified parts of digestive tract; Z87.891 Personal history of nicotine dependence; Z88.6 Allergy status to analgesic agent; Z91.018 Allergy to other foods; Z79.01 Long term (current) use of anticoagulants; Z79.51 Long term (current) use of inhaled steroids
CPT/HCPCS: J1200; J2765